=== PATIENT | female | born 1955 | race Two or more races ===

== ENCOUNTER 2020-03-12 12:08 | Outpatient (REF) | payer MEDICARE, MEDICAID, SELFPAY | END 2020-03-12 12:09 | disposition home or self-care (01) | LOC: HO.LAB 12:08 | PROVIDERS: Visit Provider Internal Medicine | DX: Z20.828 Contact with and (suspected) exposure to other viral communicable diseases (principal) | CPT/HCPCS: C9803; U0003 ==

== ENCOUNTER 2020-09-19 07:44 | Outpatient (REF) | payer MEDICARE, SELFPAY ==
--- NOTE | ~2020-09-19 | MM_ITS ---
EXAMINATION: MM SCREENING DIGITAL BREAST TOMOSYNTHESIS, BILATERAL CLINICAL INFORMATION: Screening. Asymptomatic. The lifetime risk of breast cancer based on the Tyrer-Cuzick Model is 10%. COMPARISON: Mammography: 11/01/2018, 10/05/2017, 05/13/2016 TECHNIQUE: Digital breast tomosynthesis is performed in both the craniocaudal and mediolateral oblique views along with computer-aided detection (CAD). Synthesized 2D images are generated from the tomosynthesis. FINDINGS: There are scattered areas of fibroglandular density (ACR BI-RADS breast composition Category b). There are no significant masses, abnormal calcifications, or other abnormalities. Parenchymal pattern is similar to prior studies. No developing density. No significant changes. MM/MM tomosynthesis screening BI IMPRESSION: No mammographic evidence of malignancy. ASSESSMENT: BI-RADS 1: Negative RECOMMENDATION: Routine annual mammography screening. This patient's information was entered into a reminder system with a target due date for their next mammogram.
--- NOTE | ~2020-09-19 | MM_ITS ---
EXAMINATION: BONE DENSITOMETRY CLINICAL INDICATION: Other disorder of bone density and structure, right thigh. COMPARISON: Previous BD dated 06/15/2018 and baseline BD dated 10/19/2006. TECHNIQUE: Using a [employer] DXA System (software version: 13.1) manufactured by [employer], dual-energy x-ray absorptiometry was performed of the lumbar spine and left hip. The images are of good technical quality. Summary results are attached. FINDINGS: AP SPINE L1-L4: Current: BMD 1.066 g/cm2, Z-score 0.1, T-score -1.0, normal, 11.9% increase from previous, 5.4% decrease from baseline (<5% change is not significant). Prior: BMD 0.953 g/cm2. Baseline: BMD 1.127 g/cm2. LEFT FEMUR, NECK: Current: BMD 0.742 g/cm2, Z-score -0.9, T-score -2.1, osteopenia. Prior: BMD 0.776 g/cm2. Baseline: BMD 0.986 g/cm2. LEFT FEMUR, TOTAL: Current: BMD 0.786 g/cm2, Z-score -0.9, T-score -1.8, osteopenia, 1.9% decrease from previous, 23.2% decrease from baseline (<5% change is not significant). Prior: BMD 0.801 g/cm2. Baseline: BMD 1.023 g/cm2. IDENTIFIED RISK FACTORS: Menopause, unilateral oophorectomy. HISTORY OF FRACTURE: None listed. MEDICATIONS: Calcium supplements or multivitamin, vitamin D. MM/XR DEXA axial skeleton IMPRESSION: 1. DIAGNOSIS: Osteopenia based on the lowest T-score value of -2.1 in the femoral neck applying World Health Organization criteria. 2. 10-YEAR FRACTURE RISK PREDICTION, FRAX: Major osteoporotic fracture (clinical spine, forearm, hip or shoulder) 6.2%. Hip fracture 1.0%. 3. Treatment Recommendations: NOF guidelines recommend consideration for treatment in postmenopausal women and men age 50 and older presenting with the following: -A hip or vertebral (clinical or morphometric) fracture. -T-score less than or equal to -2.5 at the femoral neck or spine after appropriate evaluation to exclude secondary causes. -Low bone mass at the hip or spine and a 10-year fracture probability by FRAX of greater than or equal to 3% for hip fracture or greater than or equal to 20% for major osteoporotic fracture based on the [place] adapted WHO algorithm. 4. Other Recommendations: All treatment decisions require clinical judgment and consideration of individual patient factors, including patient preferences, comorbidities, previous drug use, risk factors not captured in the FRAX model (e.g. frailty, falls, vitamin D deficiency, increased bone turnover, interval significant decline in bone density) and possible under or overestimation of fracture risk by FRAX. Additional medical evaluation for secondary cause of low bone mineral density may be appropriate. FUTURE SCAN RECOMMENDATION: People with diagnosed cases of osteoporosis or at high risk for fracture should have regular bone mineral density tests. For patients eligible for Medicare, routine testing is allowed once every 2 years. The testing frequency can be increased to one year for patients who have rapidly progressing disease, those who are receiving or discontinuing medical therapy to restore bone mass, or have additional risk factors.
== END 2020-09-19 07:45 | disposition home or self-care (01) ==
LOC: HO.MAMMO 07:44
PROVIDERS: Visit Provider Internal Medicine
DX: Z12.31 Encounter for screening mammogram for malignant neoplasm of breast (principal); Z13.820 Encounter for screening for osteoporosis; M85.851 Other specified disorders of bone density and structure, right thigh; Z78.0 Asymptomatic menopausal state; Z79.899 Other long term (current) drug therapy; Z98.890 Other specified postprocedural states
CPT/HCPCS: 77063; 77067; 77080

== ENCOUNTER 2021-01-28 09:25 | Outpatient (REF) | payer MEDICARE, SELFPAY ==
--- NOTE | ~2021-01-28 | XR_ITS ---
EXAMINATION: XR HAND-BILATERAL CLINICAL INFORMATION: Polyarthritis. COMPARISON: None TECHNIQUE: 3 views each of both hands. FINDINGS: Right hand: Mild diffuse osteopenia is noted involving all the visualized bones. No definite radiographic evidence of any articular or subarticular erosion present. Soft tissues are unremarkable. The articular surfaces are unremarkable. Left hand: Mild diffuse osteopenia is noted. Similar to the right side, no definite radiographic evidence of any articular or subarticular erosion present. The soft tissues are unremarkable. The articular surfaces are unremarkable. XR/XR hand RT min 3V IMPRESSION: 1. Mild diffuse osteopenia. 2. No radiographic evidence of any articular or subarticular erosion or soft tissue abnormalities.
--- NOTE | ~2021-01-28 | XR_ITS ---
EXAMINATION: XR HAND-BILATERAL CLINICAL INFORMATION: Polyarthritis. COMPARISON: None TECHNIQUE: 3 views each of both hands. FINDINGS: Right hand: Mild diffuse osteopenia is noted involving all the visualized bones. No definite radiographic evidence of any articular or subarticular erosion present. Soft tissues are unremarkable. The articular surfaces are unremarkable. Left hand: Mild diffuse osteopenia is noted. Similar to the right side, no definite radiographic evidence of any articular or subarticular erosion present. The soft tissues are unremarkable. The articular surfaces are unremarkable. XR/XR hand LT min 3V IMPRESSION: 1. Mild diffuse osteopenia. 2. No radiographic evidence of any articular or subarticular erosion or soft tissue abnormalities.
== END 2021-01-28 09:26 | disposition home or self-care (01) ==
LOC: HO.XRAY 09:25
PROVIDERS: PCP Internal Medicine; Visit Provider Internal Medicine
DX: M13.0 Polyarthritis, unspecified (principal)
CPT/HCPCS: 73130

== ENCOUNTER 2021-02-22 15:41 | Outpatient (REF) | payer OTHER, SELFPAY ==
--- NOTE | ~2021-02-22 | US_ITS ---
EXAMINATION: US THYROID CLINICAL INFORMATION: Nontoxic single thyroid nodule. COMPARISON: Ultrasound soft tissue head/neck thyroid dated 12/06/2019. TECHNIQUE: Linear transducer grayscale and color Doppler examination with attention to the region of the thyroid. FINDINGS: SIZE: Measurements of the thyroid lobes and nodules are given in sagittal, anteroposterior and transverse dimensions respectively. Right Thyroid Lobe: 3.9 x 2.3 x 1.6 cm, volume 7.5 mL. Previously 4.6 x 2.3 x 2.4 cm, volume 12.8 mL. Parenchyma: The gland echotexture is heterogeneous. Thyroid vascularity is increased. Left Thyroid Lobe: 4.5 x 2.3 x 1.9 cm, volume 10.3 mL. Previously 5.7 x 2.4 x 3.2 cm, volume 23.3 mL. Parenchyma: The gland echotexture is heterogeneous. Thyroid vascularity is increased. Isthmus: 0.1 cm in maximum AP dimension. Previously 0.1 cm. Estimated total number of nodules greater than or equal to 1 cm: 0. Contact Finger Assembler nodules are described as follows: 1. Location: Right mid. Size: 0.8 x 0.49 x 0.73 cm, volume 0.15 mL. Previously: 0.8 x 0.6 x 0.6 cm, volume 0.15 mL. Nodule characteristics: Composition: Solid (2). Echogenicity: Hyperechoic (1). Shape: Not taller than wide (0). Margins: Smooth (0). Echogenic Foci: None (0). ACR TI-RADS total points: 3 ACR TI-RADS category: 3 Significant change in size (>/= 20% in 2 dimensions and minimal increase of 2 mm or 50% or greater increase in volume): No Change in features: No Change in ACR TI-RADS risk category: No 2. Location: Right inferior. Size: 0.47 x 0.47 x 0.43 cm, volume 0.05 mL. Previously: 0.8 x 0.7 x 0.7 cm, volume 0.21 mL. Nodule characteristics: Composition: Solid (2). Echogenicity: Hypoechoic (2). Shape: Not taller than wide (0). Margins: Smooth (0). Echogenic Foci: None (0). ACR TI-RADS total points: 4 ACR TI-RADS category: 4 Significant change in size (>/= 20% in 2 dimensions and minimal increase of 2 mm or 50% or greater increase in volume): Yes, decreased Change in features: No Change in ACR TI-RADS risk category: No NODES: No lymphadenopathy is seen in the tissue surrounding the thyroid gland. US/US thyroid IMPRESSION: Upper normal-size very heterogeneous slightly hypervascular thyroid gland. One right nodule appears slightly decreased in size. There is no change in the other right nodule. ACR TI-RADS RECOMMENDATION REFERENCE: Ultrasound-guided fine-needle aspiration, followup ultrasound, no further follow up. * TR1 (0 point) and TR 2 (2 points): No FNA or follow up * TR3 (3 points): FNA if more than or equal to 2.5 cm in maximum dimension, followup ultrasound in 1, 3 and 5 years if 1.5 to 2.4 cm in maximum dimension. * TR4 (4-6 points): FNA if more than or equal to 1.5 cm in maximum dimension, followup ultrasound in 1, 2, 3 and 5 years if 1 to 1.4 cm in maximum dimension. * TR5 (more than or equal to 7 points): FNA if more than or equal to 1 cm in maximum dimension, followup ultrasound every year for 5 years if 0.5 to 0.9 cm in maximum dimension. * TR3, TR4 or TR5 nodules that are below the size threshold for follow up receive no follow up.
== END 2021-02-22 15:42 | disposition home or self-care (01) ==
LOC: HO.US 15:41
PROVIDERS: PCP Internal Medicine; Visit Provider Internal Medicine
DX: E04.1 Nontoxic single thyroid nodule (principal)
CPT/HCPCS: 76536

== ENCOUNTER 2021-10-18 07:02 | Emergency (ER) | payer OTHER, SELFPAY ==
--- NOTE | ~2021-10-18 | XR_ITS ---
EXAMINATION: XR ELBOW, LEFT CLINICAL INFORMATION: Post reduction COMPARISON: Previous x-ray from earlier the same day TECHNIQUE: Two views of the left elbow. FINDINGS: There is posterior dislocation of the radial head with respect to the capitellum. There is a displaced fracture of the proximal ulnar shaft and coronoid process. Alignment appears unchanged from x-ray from earlier the same day. Humeral ulnar alignment is normal appearing. There is an elbow joint effusion. There is soft tissue swelling adjacent to the proximal ulnar shaft fracture. XR/XR elbow LT 2V IMPRESSION: Posterior dislocation of the radial head with respect to the capitellum and displaced proximal ulnar shaft and coronoid process fractures. Alignment appears unchanged from earlier exam.
--- NOTE | ~2021-10-18 | XR_ITS ---
EXAMINATION: XR WRIST, LEFT CLINICAL INFORMATION: Pain status-post fall. COMPARISON: Radiographs dated 01/28/2021. TECHNIQUE: PA view of the left wrist. FINDINGS: The bones and soft tissues are normal. No fracture. Alignment is anatomic with normal joint spaces. No erosions or abnormal soft tissue calcifications. XR/XR wrist LT min 3V IMPRESSION: Normal left wrist.
--- NOTE | ~2021-10-18 | XR_ITS ---
EXAMINATION: XR forearm LT 2V, XR elbow LT min 3V CLINICAL INFORMATION: Reason for Exam pain s/p fall COMPARISON: None available at the time of this dictation. TECHNIQUE: Frontal and lateral view radius, ulna, elbow, total of 4 views were obtained. FINDINGS: Mildly displaced angulated fracture of the proximal ulna, O the fracture site about 0.5 cm, angulation of the fracture site approximately 30 degrees. There is dorsal dislocation of the radial head. XR/XR forearm LT 2V IMPRESSION: Fracture dislocation of the elbow, angulated mildly displaced fracture of the proximal ulnar diaphysis, posteriorly dislocated radial head.
--- NOTE | ~2021-10-18 | XR_ITS ---
EXAMINATION: XR forearm LT 2V, XR elbow LT min 3V CLINICAL INFORMATION: Reason for Exam pain s/p fall COMPARISON: None available at the time of this dictation. TECHNIQUE: Frontal and lateral view radius, ulna, elbow, total of 4 views were obtained. FINDINGS: Mildly displaced angulated fracture of the proximal ulna, O the fracture site about 0.5 cm, angulation of the fracture site approximately 30 degrees. There is dorsal dislocation of the radial head. XR/XR elbow LT min 3V IMPRESSION: Fracture dislocation of the elbow, angulated mildly displaced fracture of the proximal ulnar diaphysis, posteriorly dislocated radial head.
[2021-10-18 07:33] VITALS: BP 132/70; PULSE 78; RESP 18; TEMP 36.7; O2SAT 98; BMI 32.1
--- NOTE | 2021-10-18 09:11 | ED.FALL ---
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 Patient tripped and fell landing on her right side trying to protect her fall with her left arm fell on outstretched left upper extremities causing severe pain in the left elbow, no head injury or head trauma, no LOC. patient also is complaining of right knee pain. Related Data Previous Rx's Medication Instructions Recorded ibuprofen 800 mg tablet 800 mg PO Q8H PRN pain #20 tabs 10/18/21 Allergies Allergy/AdvReac Type Severity Reaction Status Date / Time No Known Allergies Allergy Unverified 12/22/19 15:31 none Allergy Unknown Uncoded 04/21/19 00:00 Review of Systems Review of Systems: All other systems are reviewed and are negative Constitutional: Reports as per HPI and Reports no additional constitutional complaints Eyes: Reports as per HPI and Reports no additional eye complaints Reports system reviewed and no additional complaints, except as documented Cardiovascular: Reports as per HPI and Reports no additional cardiovascular complaints Respiratory: Reports as per HPI and Reports no additional respiratory complaints Gastrointestinal: Reports as per HPI and Reports no additional gastrointestinal complaints Genitourinary: Reports no additional female genitourinary complaints Musculoskeletal: Reports no additional musculoskeletal complaints Skin/Breast: Reports system reviewed and no additional complaints, except as docu Psychiatric: Reports no additional psychiatric complaints Endocrine: Reports no additional endocrine complaints Hematologic/Lymphatic: Reports no additional hematologic/lymphatic complaints Allergic/Immunologic: Reports no additional allergic/immunologic complaints Reports system reviewed and no additional complaints, except as documented and Reports Abnormal speech present [facility] Social History Social History Advance Directives: No Advance Directives Information Provided: Yes Physical Exam Vital Signs: Vital Signs: Last Vital Signs Temp 98.1 F 10/18/21 07:33 Pulse 78 10/18/21 07:33 Resp 18 10/18/21 07:33 BP 132/70 10/18/21 07:33 Pulse Ox 98 10/18/21 07:33 O2 Del Method 10/18/21 07:33 BMI result Body Mass Index 32.1 Vital signs have been reviewed as appeared to be correct. Blood pressure normal. Heart rate normal. Respiration rate normal. Temperature normal. Oxygen saturation normal. Appearance: Alert. Oriented X3. No acute distress. Head: Normal external exam. Normocephalic. Atraumatic. No Chan signs noted. No raccoon eyes noted Eyes: PERRLA. EOMI. Conjunctiva and sclera normal. Eyelids normal. ENT: TM's Normal. Pharynx normal. Uvula midline. Moist mucous membranes. No trismus noted. No drooling noted. No muffled voice noted. Neck: Normal inspection. Neck supple. FROM. No adenopathy. Thyroid Normal. No meningeal signs. No neck mass noted. CVS: Normal heart rate and rhythm. Heart sound normal. No murmurs noted. Pulses normal throughout. Respiratory: No respiratory distress. Painless inspiration. Breath sounds normal. No wheezes/rales/rhonchi noted. Chest nontender. No accessory muscle usage noted or decreased air movement noted. Abdomen: Soft and nontender. Bowel sounds normal in all 4 quadrants. No distention noted. No organomegaly noted. No visible injury noted. Back: No CVA tenderness. Full range of motion noted. Skin: Skin warm and dry. Normal skin color. Normal skin turgor. No rashes/lesions/lacerations noted. Extremities: Right elbow pain with mild swelling and deformity, neurovascular proximal and distal to the injury is intact. Neuro: Oriented X 3. Cranial nerve exam: II-XII are grossly intact No motor deficit. No sensory deficit. Reflexes normal. Course Course Course Narrative: Left on the fracture. Posterior splint with sling and discharged with follow-up with ortho. Patient will be contacted by Dr. Brush's office to arrange for soon open reduction and internal fixation. Procedures Orthopedic Joint Reduction Joint #1: Time Out Performed: Yes Side: left Joint Reduction Location: elbow Analgesia: hematoma block Local Anesthesia: lidocaine 2% Amount of anesthesic used (mL): 5 Shoulder Technique Used (if applicable): traction/counter-traction Post-reduction neuro exam: no change Post-reduction vascular: no change Post Reduction X-Ray Obtained: Yes Post Reduction X-Ray Results: not reduced Splint Applied: Yes Patient Tolerated Procedure: well MDM - Fall Imaging Data Left elbow x-ray: Attestation: I personally reviewed and interpreted this imaging study as follows: Radiologist's impression: Fracture dislocation of the elbow, angulated mildly displaced fracture of the proximal ulnar diaphysis, posteriorly dislocated radial head. Discharge Plan Discharge Clinical Impression: Elbow fracture, left Patient Disposition: Home, Self-Care Instructions: Elbow Fracture (ED) Prescriptions: New ibuprofen 800 mg tablet 800 mg PO Q8H PRN (Reason: pain) Qty: 20 0RF Referrals: Warner Brush MD [Physician] - Interventions: ED Discharge Assessment Last Done: 10/18/21 10:39 Discharge Date/Time: 10/18/21 12:26
[2021-10-18] MEDS: Lidocaine HCl 1 % MPF 5 ML VIAL SUBCUT (11:41)
== END 2021-10-18 12:26 | disposition home or self-care (01) ==
PROVIDERS: Emergency Provider Emergency Medicine
DX: S52.122A Displaced fracture of head of left radius, initial encounter for closed fracture (principal); S53.005A Unspecified dislocation of left radial head, initial encounter; M25.561 Pain in right knee; W01.0XXA Fall on same level from slipping, tripping and stumbling without subsequent striking against object, initial encounter; Y93.9 Activity, unspecified; Y92.9 Unspecified place or not applicable; Y99.9 Unspecified external cause status
CPT/HCPCS: 24620; 73070; 73080; 73090; 73110; 99282; 99284

== ENCOUNTER → 2021-10-21 13:25 | Outpatient (BNVA) | payer OTHER, SELFPAY | PROVIDERS: Visit Provider Physician Assistant | DX: S52.002A Unspecified fracture of upper end of left ulna, initial encounter for closed fracture (principal); S53.005A Unspecified dislocation of left radial head, initial encounter | CPT/HCPCS: 99202; J1100; J2405; J3010 ==

== ENCOUNTER 2021-10-22 06:00 | Day surgery (SDC) | payer OTHER, SELFPAY ==
[2021-10-21 14:09] VITALS: BMI 32.1
--- NOTE | 2021-10-21 14:10 | HO.ANESPROP2 ---
HPI - Anesthesia Eval Consult details Narrative: 66yo F for Left Elbow FX [place] Ulna ORIF PMFSH Active Problems Active Problems: All Active Problems (Updated 10/21/21 @ 13:41 by Jelly Haas) Fracture of proximal end of left ulna (Acute) Dislocation of left radial head (Acute) Past Medical History Medical History (Updated 10/22/21 @ 06:37 by Lisset Peng RN) High cholesterol Thyroid disease Surgical History Surgical History (Updated 10/22/21 @ 06:37 by Lisset Peng RN) Total knee replacement status Social History Social History (Updated 10/21/21 @ 13:32 by JANES Oseguera) Patient Tobacco Use Status: Never used Tobacco Are you DNR?: No Advance Directives: No Advance Directives Information Provided: Yes Nutrition Risks: No Nutritional Risk Current occupational status: unemployed and 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 Allergies Allergy/AdvReac Type Severity Reaction Status Date / Time No Known Allergies Allergy Verified 10/22/21 06:36 Home Medications Medication Instructions Recorded Confirmed Last Taken Type alendronate 70 mg tablet 70 mg PO QWEEK 10/21/21 Unknown History atorvastatin 20 mg tablet 20 mg PO DAILY 10/21/21 Unknown History calcium citrate 315 mg-vitamin D3 2 tab PO BID 10/21/21 Unknown History 5 mcg (200 unit) tablet levothyroxine 137 mcg tablet 137 mcg PO DAILY 10/21/21 Unknown History nitrofurantoin 1 cap PO BID 10/21/21 Unknown History monohydrate/macrocrystals 100 mg capsule Exam Exam Date and Time: October 21, 2021 1410 Height,Weight and Vital Signs: Height 5 ft 1 in Weight 77.111 kg Assessment and Plan Assessment Anesthesia Assessment: Chart Reviewed
[2021-10-22] VITALS (11 sets, daily range): BP systolic 112–162; BP diastolic 62–85; PULSE 78–102; RESP 16–18; TEMP 36.1–36.7; O2SAT 92–945
--- NOTE | ~2021-10-22 | FL_ITS ---
EXAMINATION: XR FLUOROSCOPY WITH IMAGES CLINICAL INFORMATION: Reduction fracture left proximal ulnar with radial head dislocation. COMPARISON: Radiographs left elbow 10/18/2021, left wrist 10/18/2021. TECHNIQUE: Fluoroscopy performed by Dr. Evelyn Rodriguez. Fluoroscopy time: 1 minute. Cumulative Dose: 2.48 mGy. DAP: 0.15 Gy-cm2. Images: 16. FINDINGS: Proximal ulnar fracture is reduced with dorsal plate and multiple screws. Hardware is intact. Fracture fragments are in near-anatomic alignment. Radial dislocation there is reduced as well. There is normal alignment. No dislocation. There are overlying skin anand. FL/FL guidance in OR IMPRESSION: Status post reduction internal fixation left elbow fracture/dislocation.
[2021-10-22] MEDS: Lactated Ringers 1,000 ML 100 ML IVCONT (06:20)
--- NOTE | 2021-10-22 07:40 | MHC.SHP ---
Pre-Procedural Eval Section A Date of Service: 10/22/21 The patient is an INPATIENT: No Changes since office visit: No Cold of Flu in the past 2 weeks, No New Medical Problems, No Changes in Medication and No Patient answered all questions The History & Physical has been completed within 30 days and I have reviewed it.: Yes Section B Chief Complaint: Monteggia's fracture of left ulna, initial encount Allergies: Allergies Allergy/AdvReac Type Severity Reaction Status Date / Time No Known Allergies Allergy Verified 10/22/21 06:36 Plan I have reviewed the history and physical and performed a pertinent physical examination on my patient. No changes have occurred unless specified.
--- NOTE | 2021-10-22 07:57 | HO.ANESPROP2 ---
[facility] Active Problems Active Problems: All Active Problems (Updated 10/22/21 @ 06:37 by Lisset Peng RN) Dislocation of left radial head (Acute) Fracture of proximal end of left ulna (Acute) Past Medical History Medical History (Updated 10/22/21 @ 06:37 by Lisset Peng RN) High cholesterol Thyroid disease Family History Family history of problems with anesthesia: No Surgical History Surgical History (Updated 10/22/21 @ 06:37 by Lisset Peng RN) Total knee replacement status History of Problems with Anesthesia: No Social History Social History (Updated 10/21/21 @ 13:32 by Kimberlee Chance [facility] Patient Tobacco Use Status: Never used Tobacco Are you DNR?: No Advance Directives: No Advance Directives Information Provided: Yes Nutrition Risks: No Nutritional Risk Current occupational status: unemployed and 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 Allergies Allergy/AdvReac Type Severity Reaction Status Date / Time No Known Allergies Allergy Verified 10/22/21 06:36 Active Medications: Current Medications Lactated Ringer's (Lr) 1,000 mls @ 100 mls/hr IVCONT .Q10H DARIA Last Admin: 10/22/21 06:20 Dose: 100 mls/hr Home Medications Medication Instructions Recorded Confirmed Last Taken Type alendronate 70 mg tablet 70 mg PO QWEEK 10/21/21 Unknown History atorvastatin 20 mg tablet 20 mg PO DAILY 10/21/21 Unknown History calcium citrate 315 mg-vitamin D3 2 tab PO BID 10/21/21 Unknown History 5 mcg (200 unit) tablet levothyroxine 137 mcg tablet 137 mcg PO DAILY 10/21/21 Unknown History nitrofurantoin 1 cap PO BID 10/21/21 Unknown History monohydrate/macrocrystals 100 mg capsule Exam Exam Date and Time: October 22, 2021 0757 Height,Weight and Vital Signs: Height 5 ft 1 in Weight 77.111 kg Last Vital Signs Temp 98.1 F 10/22/21 06:27 Pulse 102 H 10/22/21 06:27 Resp 18 10/22/21 06:27 BP 162/85 H 10/22/21 06:27 Pulse Ox 97 10/22/21 06:27 O2 Del Method 10/22/21 06:27 Airway Mallampati Class: II TM Dist: >3cm Neck ROM: Full Assessment and Plan Assessment Anesthesia Assessment: Anesthesia Plan Discussed and Chart Reviewed Final Anesthetic Review Family History of Problems with Anesthesia: No History of Problems with Anesthesia: No NPO: Yes ASA Class: II Final Preanesthetic Review: No Changes in Pt Med Stat, Meds/Allgs Chart Reviewed, Consent Obtained/Reviewed and Anes Risks/Benef Reviewed Patient Risk: Intermediate Procedure Risk: Intermediate Anesthetic Plan Anesthetic Plan: GA and Regional Block Disposition: Standard PACU
--- NOTE | 2021-10-22 12:04 | P.HPSUR_ITS ---
Pre-Procedural Eval Section A Date of Service: 10/22/21 The patient is an INPATIENT: No Changes since office visit: No Cold of Flu in the past 2 weeks, No New Medical Problems, No Changes in Medication and No Patient answered all questions The History & Physical has been completed within 30 days and I have reviewed it.: Yes Section B Chief Complaint: Monteggia's fracture of left ulna, initial encount Allergies: Allergies Allergy/AdvReac Type Severity Reaction Status Date / Time No Known Allergies Allergy Verified 10/22/21 06:36 Plan I have reviewed the history and physical and performed a pertinent physical examination on my patient. No changes have occurred unless specified. The risks and benefits of operative treatment were discussed with the patient and the patient wishes to proceed with surgery. These risks include, but are not limited to risk of damage to blood vessels, nerves, tendons, infection, r ecurrence, incomplete relief of preoperative symptoms, persistent pain, possible need for further surgery and the risks associated with regional blocks and anesthesia. The plan is to take the patient to the operating room today for the following procedures: 1. Left Monteggia elbow fracture dislocation open reduction internal fixation 2. [ ] All of the preoperative paperwork including the consent was filled out today. All the patient's questions were answered. The patient understands that they will be contacted by our district gauger soon to schedule this procedure
--- NOTE | 2021-10-22 12:06 | W.PM.OPN ---
Operative Note Operative Note Date of Service: 10/22/21 Narrative: Operative Note Narrative: Preop diagnosis: Left posterior Monteggia elbow fracture dislocation Postop diagnosis: Same Procedure: 1. Left monteggia elbow fracture dislocation open reduction internal fixation of the ulna and reduction of the radial head, and repair of lateral collateral ligament Surgeon: Evelyn Rodriguez MD Anesthesia: General Anesthesia [plus regional block] Findings: After fixation of the ulna and reduction of the elbow the elbow was found to be unstable at about 60 degrees from full extension. After repair of the lateral collateral ligament stability was improved but the elbow was still noted to be unstable when we reached about 30-40 degrees from full extension. Implants: Neftali 6 hole proximal ulna plate with 4 nonlocking screws and 4 locking screws Tourniquet time: 130 minutes EBL: 10 ml Specimen: None Drains: None Complications: None Disposition: Brought to the recovery room in stable condition Plan: Follow-up in 10-14 days for wound check, suture removal and pre clinic radiographs Referral to elbow specialist for persistent instability following operative management Indications: The patient is a 58 year old woman with a left posterior Monteggia elbow fracture dislocation . The risks and benefits of operative treatment, including but not limited to risk of damage to blood vessels, nerves, tendons, infection, recurrence, persistent pain or numbness, incomplete resolution of preoperative symptoms, or need for further surgery were discussed with the patient and they wished to proceed with surgery. Procedure: Once consent was obtained patient was brought back to the operating suite and placed in the operating table in a supine position. A regional block was performed by the anesthesia team. Perioperative antibiotics and anesthesia was administered by the anesthesia team. A tourniquet was applied to the proximal aspect of the left upper extremity and the limb was prepped and draped in a standard surgical fashion. The limb was elevated exsanguinated with Esmarch bandage and the tourniquet inflated to 250 mm of mercury for a total tourniquet time of 130 minutes. A posterior approach to the left elbow was made the along the posterior aspect of the olecranon extending distally along the ulnar shaft. Incision was made through the skin the subcutaneous tissues using a 15. Blade. I then carefully dissected down onto the shaft of the proximal ulna and about the olecranon . I did longitudinally split the triceps tendon fibers to facilitate placement of the plate. Some hematoma was removed from the fracture site and an open reduction was performed of the ulna shaft fracture. I then placed a 6 hole Knickerbocker olecranon plate on the proximal ulna and held our fixation and the plate in position using 3 K-wires. Once satisfied with our reduction and plate placement I then placed 4 cortical screws and 4 locking screws after drilling with the appropriate drill bit, measuring with a depth gauge and placing the appropriate length and type of 3.5 mm screw. The near cortex of the long cortical screw securing the butterfly fragment was over reamed with a 3.5 mm drill bit to create a lag screw. All implants appeared to be satisfactorily positioned and ulna fracture appears to have been brought out to length. There is a butterfly fracture fragment, and this appears to be in satisfactory position. When testing the elbow through range of motion however, the elbow was unstable posterior laterally as the elbow was brought from full flexion to perhaps 60 degrees from full extension. At this point I extended our approach over the lateral aspect of the elbow. I made a Veronica approach, dissecting between the anconeus muscle belly and the muscle bellies of the extensor tendons. This took me directly into the radiocapitellar joint. The capsuloligamentous structures about the radial capitellar joint were disrupted. The lateral collateral ligament appears to have been torn off of its origin in the lateral epicondyle. At this point the wound was copiously irrigated with normal saline. I repaired the lateral collateral ligament using some 2-0 Ethibond suture. After our repair I again assessed the elbow for stability. The repair did improve stability, however the elbow is still unstable at approximately 30 degrees from full extension. At this point the tourniquet was deflated and hemostasis obtained with a brief period of local pressure and bipolar electrocautery. The wound was copiously irrigated with normal saline. Soft tissue was reapproximated over the plate and the subcutaneous layer was closed with 2-0 Vicryl suture, and the skin edges were reapproximated with staple closure. The wound was infiltrated with some 1% lidocaine with epinephrine for postop pain control and a sterile dressing and posterior splint with the elbow at 90 degrees of flexion was applied. The patient appears to have tolerated the procedure well and with no complications. All digits were well vascularized conclusion of the case.
== END 2021-10-22 14:32 | disposition home or self-care (01) ==
PROVIDERS: Visit Provider Orthopaedic Surgery
PROC: (CPT 24635; principal; 2021-10-22 07:30)
DX: S52.272A Monteggia's fracture of left ulna, initial encounter for closed fracture (principal); W01.0XXA Fall on same level from slipping, tripping and stumbling without subsequent striking against object, initial encounter; Y93.01 Activity, walking, marching and hiking; Y92.9 Unspecified place or not applicable; Y99.8 Other external cause status; E07.9 Disorder of thyroid, unspecified; E78.5 Hyperlipidemia, unspecified; Z79.899 Other long term (current) drug therapy
CPT/HCPCS: 24635; C1713; J0171; J0690; J1100; J2250; J2405; J2795; J3010

== ENCOUNTER 2021-11-05 13:10 | Outpatient (REF) | payer OTHER, SELFPAY ==
--- NOTE | ~2021-11-05 | XR_ITS ---
EXAMINATION: XR ELBOW, LEFT CLINICAL INFORMATION: Elbow pain. COMPARISON: Elbow radiographs 10/18/2021. TECHNIQUE: AP, lateral, and oblique views of the left elbow. FINDINGS: There has been open reduction and internal fixation of complex proximal ulnar fracture with a plate and screw device in place. Fracture fragment alignment is significantly improved when compared to the post-reduction radiographs on 10/18/2021 which still showed significant angulation. The radial head now appears in more normal position and not dislocated with respect to the capitellum. XR/XR elbow LT min 3V IMPRESSION: Postoperative findings status post open reduction and internal fixation.
== END 2021-11-05 13:11 | disposition home or self-care (01) ==
LOC: HO.HOSX 13:10
PROVIDERS: Visit Provider Physician Assistant
DX: M25.522 Pain in left elbow (principal)
CPT/HCPCS: 73080

== ENCOUNTER 2022-01-15 11:00 | Outpatient (RCR) | payer OTHER, SELFPAY | END 2022-02-13 11:03 | disposition home or self-care (01) | LOC: HO.OT 11:00 | PROVIDERS: PCP Internal Medicine; Visit Provider Nurse Practitioner Family | DX: M25.522 Pain in left elbow (principal) | CPT/HCPCS: 97110; 97140; 97166 ==

== ENCOUNTER 2022-09-23 09:01 | Outpatient (REF) | payer OTHER, SELFPAY ==
--- NOTE | ~2022-09-23 | US_ITS ---
EXAMINATION: US THYROID CLINICAL INFORMATION: Right thyroid nodule. COMPARISON: Ultrasound soft tissue head/neck thyroid dated 02/22/2021 TECHNIQUE: Linear transducer grayscale and color Doppler examination with attention to the region of the thyroid. FINDINGS: SIZE: Measurements of the thyroid lobes and nodules are given in sagittal, anteroposterior and transverse dimensions respectively. Right Thyroid Lobe: 4.5 x 1.7 x 1.4 cm, volume 5.6 mL. Previously 3.9 x 2.3 x 1.6 cm, volume 7.5 mL. Parenchyma: The gland echotexture is heterogeneous. Thyroid vascularity is increased. Left Thyroid Lobe: 5.0 x 2.2 x 2.5 cm, volume 14.4 mL. Previously 4.5 x 2.3 x 1.9 cm, volume 10.3 mL. Parenchyma: The gland echotexture is heterogeneous. Thyroid vascularity is increased. Isthmus: 0.3 cm in maximum AP dimension. Previously 0.1 cm. Estimated total number of nodules greater than or equal to 1 cm: 0. Reception Interviewer nodules are described as follows: 1. Location: Right mid. Size: 0.8 x 0.6 x 0.7 cm, volume 0.2 mL. Previously: 0.8 x 0.5 x 0.7 cm, volume 0.2 mL. Nodule characteristics: Composition: Solid (2). Echogenicity: Isoechoic (1). Shape: Not taller than wide (0). Margins: Smooth (0). Echogenic Foci: None (0). ACR TI-RADS total points: 3 Previous: 3 ACR TI-RADS category: 3 Previous: 3 Significant change in size (>/= 20% in 2 dimensions and minimal increase of 2 mm or 50% or greater increase in volume): No Change in features: No Change in ACR TI-RADS risk category: No 2. Location: Right inferior. Size: 0.8 x 0.7 x 0.7 cm, volume 0.2 mL. Previously: 0.5 x 0.5 x 0.4 cm, volume 0.2 mL. Nodule characteristics: Composition: Solid (2). Echogenicity: Isoechoic (1). Shape: Not taller than wide (0). Margins: Smooth (0). Echogenic Foci: Peripheral calcifications (2). ACR TI-RADS total points: 5 Previous: 4 ACR TI-RADS category: 4 Previous: 4 Significant change in size (>/= 20% in 2 dimensions and minimal increase of 2 mm or 50% or greater increase in volume): No Change in features: Yes, new peripheral calcification Change in ACR TI-RADS risk category: No NODES: No lymphadenopathy is seen in the tissue surrounding the thyroid gland. US/US thyroid IMPRESSION: Subcentimeter TR 3 and TR 4 thyroid nodules as detailed above which do not meet criteria for follow-up given size. Heterogeneous and hypervascular thyroid which can be seen in the setting of thyroiditis. ACR TI-RADS RECOMMENDATION REFERENCE: Ultrasound-guided fine-needle aspiration, followup ultrasound, no further follow up. * TR1 (0 point) and TR2 (2 points): No FNA or follow up * TR3 (3 points): FNA if more than or equal to 2.5 cm in maximum dimension, followup ultrasound in 1, 3 and 5 years if 1.5 to 2.4 cm in maximum dimension. * TR4 (4-6 points): FNA if more than or equal to 1.5 cm in maximum dimension, followup ultrasound in 1, 2, 3 and 5 years if 1 to 1.4 cm in maximum dimension. * TR5 (more than or equal to 7 points): FNA if more than or equal to 1 cm in maximum dimension, followup ultrasound every year for 5 years if 0.5 to 0.9 cm in maximum dimension. * TR3, TR4 or TR5 nodules that are below the size threshold for follow up receive no follow up.
--- NOTE | ~2022-09-23 | MM_ITS ---
EXAMINATION: BONE DENSITOMETRY CLINICAL INDICATION: Other specified disorders of bone density and structure, unspecified site. COMPARISON: Previous BD dated 09/19/2020 and baseline BD dated 10/19/2006. TECHNIQUE: Using a Infoflow DXA System (software version: 13.1) manufactured by [employer], dual-energy x-ray absorptiometry was performed of the lumbar spine and left hip. The images are of good technical quality. Summary results are attached. FINDINGS: AP SPINE L1-L4: Current: BMD 1.055 g/cm2, Z-score 0.3, T-score -1.0, normal, 1.0% decrease from previous, 6.1% decrease from baseline (<5% change is not significant). Prior: BMD 1.066 g/cm2. Baseline: BMD 1.123 g/cm2. LEFT FEMUR, NECK: Current: BMD 0.627 g/cm2, Z-score -1.5, T-score -3.0, osteoporosis. Prior: BMD 0.742 g/cm2. Baseline: BMD 0.986 g/cm2. LEFT FEMUR, TOTAL: Current: BMD 0.751 g/cm2, Z-score -0.9, T-score -2.0, osteopenia, 4.5% decrease from previous, 26.6% decrease from baseline (<5% change is not significant). Prior: BMD 0.786 g/cm2. Baseline: BMD 1.023 g/cm2. IDENTIFIED RISK FACTORS: Early menopause, secondary osteoporosis, rheumatoid arthritis, left oophorectomy. HISTORY OF FRACTURE: Other. MEDICATIONS: Calcium supplements or multivitamin, vitamin D. MM/XR DEXA axial skeleton IMPRESSION: 1. DIAGNOSIS: Osteoporosis based on the lowest T-score value of -3.0 in the femoral neck applying World Health Organization criteria. 2. 10-YEAR FRACTURE RISK PREDICTION, FRAX: According to the guidelines, FRAX calculation should only be performed on patients in the osteopenia bone density category. Therefore, FRAX was not performed on this patient. 3. Treatment Recommendations: NOF guidelines recommend consideration for treatment in postmenopausal women and men age 50 and older presenting with the following: -A hip or vertebral (clinical or morphometric) fracture. -T-score less than or equal to -2.5 at the femoral neck or spine after appropriate evaluation to exclude secondary causes. -Low bone mass at the hip or spine and a 10-year fracture probability by FRAX of greater than or equal to 3% for hip fracture or greater than or equal to 20% for major osteoporotic fracture based on the [place] adapted WHO algorithm. 4. Other Recommendations: All treatment decisions require clinical judgment and consideration of individual patient factors, including patient preferences, comorbidities, previous drug use, risk factors not captured in the FRAX model (e.g. frailty, falls, vitamin D deficiency, increased bone turnover, interval significant decline in bone density) and possible under or overestimation of fracture risk by FRAX. Additional medical evaluation for secondary cause of low bone mineral density may be appropriate. FUTURE SCAN RECOMMENDATION: People with diagnosed cases of osteoporosis or at high risk for fracture should have regular bone mineral density tests. For patients eligible for Medicare, routine testing is allowed once every 2 years. The testing frequency can be increased to one year for patients who have rapidly progressing disease, those who are receiving or discontinuing medical therapy to restore bone mass, or have additional risk factors.
--- NOTE | ~2022-09-23 | MM_ITS ---
EXAMINATION: MM SCREENING DIGITAL BREAST TOMOSYNTHESIS, BILATERAL CLINICAL INFORMATION: Screening. Asymptomatic. The lifetime risk of breast cancer based on the Tyrer-Cuzick Model is 0.4%. COMPARISON: Mammography: September 19, 2020 and studies dating back to February 09, 2015 TECHNIQUE: Digital breast tomosynthesis is performed in both the craniocaudal and mediolateral oblique views along with computer-aided detection (CAD). Synthesized 2D images are generated from the tomosynthesis. FINDINGS: There are scattered areas of fibroglandular density (ACR BI-RADS breast composition Category b). There are no significant masses, abnormal calcifications, or other abnormalities. MM/MM tomosynthesis screening BI IMPRESSION: No significant changes from prior exam. ASSESSMENT: BI-RADS 1: Negative RECOMMENDATION: Routine annual mammography screening. This patient's information was entered into a reminder system with a target due date for their next mammogram.
== END 2022-09-23 09:02 | disposition home or self-care (01) ==
LOC: HO.MAMMO 09:01
PROVIDERS: PCP Registered Nurse; Visit Provider Registered Nurse
DX: Z12.31 Encounter for screening mammogram for malignant neoplasm of breast (principal); Z13.820 Encounter for screening for osteoporosis; Z78.0 Asymptomatic menopausal state; E04.1 Nontoxic single thyroid nodule
CPT/HCPCS: 76536; 77063; 77067; 77080

== ENCOUNTER → 2023-01-27 11:01 | Outpatient (BNVA) | payer OTHER, SELFPAY | PROVIDERS: PCP Registered Nurse; Visit Provider Physician Assistant ==

== ENCOUNTER 2023-07-13 08:41 | Day surgery (SDC) | payer OTHER, SELFPAY ==
[2023-07-09 14:42] VITALS: BMI 29.2
--- NOTE | 2023-07-10 09:49 | HO.ANESPROP2 ---
Documented by User: Louann Cesar NP 07/10/23 09:49 HPI - Anesthesia Eval Consult details Narrative: 67yo F for Colonoscopy PMFSH Active Problems Active Problems: All Active Problems History of adenomatous polyp of colon (Acute) Encounter for screening colonoscopy (Acute) Fracture of proximal end of left ulna (Acute) Dislocation of left radial head (Acute) Past Medical History Medical History (Updated 01/27/23 @ 11:18 by Mari Unger PA-C) Thyroid disease High cholesterol Family History Family history of problems with anesthesia: No Surgical History Surgical History (Updated 07/09/23 @ 14:47 by Dolores Wilkins RN) Hx of colonoscopy Total knee replacement status History of Problems with Anesthesia: No Social History Social History (Updated 01/27/23 @ 11:21 by Mari Unger PA-C) Household Members Other:: 5 kids- single Patient Tobacco Use Status: Never used Tobacco Advance Directives: No Advance Directives Information Provided: Yes Current occupational status: unemployed and 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 Allergies Allergy/AdvReac Type Severity Reaction Status Date / Time No Known Allergies Allergy Verified 01/27/23 11:06 Home Medications ?Medication ?Instructions ?Recorded ?Confirmed ?Last Taken ?Type alendronate 70 mg tablet 70 mg PO QWEEK 10/21/21 07/13/23 Unknown History atorvastatin 20 mg tablet 20 mg PO DAILY 10/21/21 07/13/23 Unknown History calcium citrate 315 mg-vitamin D3 2 tab PO BID 10/21/21 07/13/23 Unknown History 5 mcg (200 unit) tablet levothyroxine 137 mcg tablet 137 mcg PO DAILY 10/21/21 07/13/23 Unknown History Exam Height,Weight and Vital Signs: Height 5 ft 3 in Weight 74.843 kg Assessment and Plan Assessment Anesthesia Assessment: Chart Reviewed Final Anesthetic Review Family History of Problems with Anesthesia: No History of Problems with Anesthesia: No Documented by User: Ryann Solomon MD 07/13/23 09:30 [facility] Past Medical History Medical History (Updated 01/27/23 @ 11:18 by Mari Unger PA-C) Thyroid disease High cholesterol Surgical History Surgical History (Updated 07/09/23 @ 14:47 by Dolores Wilkins, ESTUARDO) Hx of colonoscopy Total knee replacement status Social History Social History (Updated 01/27/23 @ 11:21 by Mari Unger PA-C) Household Members Other:: 5 kids- single Patient Tobacco Use Status: Never used Tobacco Advance Directives: No Advance Directives Information Provided: Yes Current occupational status: unemployed and 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 Allergies Allergy/AdvReac Type Severity Reaction Status Date / Time No Known Allergies Allergy Verified 01/27/23 11:06 Home Medications ?Medication ?Instructions ?Recorded ?Confirmed ?Last Taken ?Type alendronate 70 mg tablet 70 mg PO QWEEK 10/21/21 07/13/23 Unknown History atorvastatin 20 mg tablet 20 mg PO DAILY 10/21/21 07/13/23 Unknown History calcium citrate 315 mg-vitamin D3 2 tab PO BID 10/21/21 07/13/23 Unknown History 5 mcg (200 unit) tablet levothyroxine 137 mcg tablet 137 mcg PO DAILY 10/21/21 07/13/23 Unknown History Exam Airway Mallampati Class: II (missing 2 teeth) TM Dist: >3cm Neck ROM: Full Heart: rrr Lungs: cta Assessment and Plan Assessment Anesthesia Assessment: Anesthesia Plan Discussed Final Anesthetic Review NPO: Yes ASA Class: II Final Preanesthetic Review: No Changes in Pt Med Stat, Meds/Allgs Chart Reviewed and Consent Obtained/Reviewed Patient Risk: Low Procedure Risk: Low Anesthetic Plan Anesthetic Plan: MAC: Disposition: Standard PACU
[2023-07-13 09:16] VITALS: BMI 28.3
--- NOTE | 2023-07-13 09:16 | MHC.SHP ---
Pre-Procedural Eval Section A - 24 Hr Update-Section A only Date of Service: 07/13/23 The patient is an INPATIENT: No The patient has been examined within 24 hours of the surgical procedure. The History & Physical has been completed within 30 days and I have reviewed it.: No Section B - Complete if H&P > 30 days Chief Complaint: Surveillance for colon polyps Relevant Family History (Specify if Yes): No Relevant Social History: None Present Medications: see Short Stay Collaborative assessment Medical History: Significant History (Thyroid disease High cholesterol) History of Previous Operations: Relevant previous surgery/procedure and date(s) (Status post colonoscopy, status post total knee replacement) Allergies: Allergies Allergy/AdvReac Type Severity Reaction Status Date / Time No Known Allergies Allergy Verified 01/27/23 11:06 Review of Systems Sugical H&P ROS: Negative: Constitution, Cardiovascular, Respiratory and Gastrointestinal Exam Surgical H&P Exam: Normal: Heart, Normal: Lungs, Normal: Extremities and Normal: Abdomen Plan Diagnosis/Plan: Unchanged I have reviewed the history and physical and performed a pertinent physical examination on my patient. No changes have occurred unless specified. Time Spent With Patient Time: Total time managing care of this patient today ____ minutes.
--- NOTE | 2023-07-13 09:26 | P.OP_ITS ---
Operative Note Operative Note Date of Service: 07/13/23 Narrative: COLONOSCOPY TILL CECUM WITH BIOPSIES AND SNARE POLYPECTOMY Pre-op diagnosis: Surveillance for colon polyps. Post-op diagnosis:? Colon polyps, Diverticulosis, hemorrhoids Endoscopist:? Marques Hackett MD Anesthesia:?MAC Consent: Indications for the procedure and potential complications of bleeding, perforation, reaction to medications and missed diagnosis were discussed with the patient with the help of a [employer] foreign language teacher and informed consent was obtained. Instrument: Olympus PCF H 190 L variable stiffness pediatric colonoscope Monitoring: Vital signs and clinical assessment, intermittent blood pressure monitoring, continuous EKG monitoring, Pulse oximetry and Carbon Dioxide monitoring were done throughout the procedure. Please see anesthesia flowsheet. Colon withdrawl time was 27 minutes. Procedure: The patient was placed in the left lateral decubitis position and pre-procedure medications were administered. After a digital rectal examination of the ano-rectum, the video colonoscope was inserted into the rectum and advanced through the colon to the cecum. The colonoscope was slowly withdrawn in a retrograde panoramic fashion and the colon mucosa was carefully examined including a retroflexed view of the rectum. Findings and interventions are described below. Procedure Difficulty: without difficulty Findings: Terminal Ileum: Not evaluated Cecum: A 10-12 mm sessile polyp - removed with a hot snare. Ascending Colon: A 9-10 mm sessile polyp in the mid ascending colon - removed with a hot snare. A 4-5 mm sessile polyp in the distal ascending colon - removed with a cold snare Transverse Colon: A 2-3 mm sessile polyp - removed with a cold biopsy Descending Colon: Moderate diverticulosis Sigmoid Colon: A 3-4 mm sessile polyp - removed with a cold biopsy. Moderate diverticulosis Rectum: Normal Ano-rectum: Moderate internal hemorrhoids Colon preparation: Excellent after some irrigation. Telephone Bowel Preparation Scale Right colon; 3 Transverse colon: 3 Left colon; 3 (0 = Unprepared colon segment with mucosa not seen due to solid stool that cannot be cleared. 1 = Portion of mucosa of the colon segment seen, but other areas of the colon segment not well seen due to staining, residual stool and/or opaque liquid. 2 = Minor amount of residual staining, small fragments of stool and/or opaque liquid, but mucosa of colon segment seen well. 3 = Entire mucosa of colon segment seen well with no residual staining, small fragments of stool or opaque liquid) Impression and Post Procedure Diagnosis: Colonoscopy Findings: Five small to medium sized polyps were removed Moderate diverticulosis seen in the left colon Moderate hemorrhoids on retroflexed exam. Plan: Pt has a FU appointment on 07/27/[address] Guevara (I messaged MA to switch appt to SCOTT Bhagat) Repeat Colonoscopy in 3-5 years if polyps are adenomatous and 10 year if polyps are hyperplastic. Above findings were reviewed with the patient with the help of an [facility] [place] [place] [employer] [place] foreign language teacher and relevant handouts were given and the discharge area.
[2023-07-13] MEDS: Lactated Ringers 1,000 ML 100 ML IVCONT (09:31)
[2023-07-13 10:07] VITALS: BP 116/70; PULSE 71; RESP 16; TEMP 36.1; O2SAT 98
[2023-07-13 10:22] VITALS: BP 141/82; PULSE 75; RESP 18; TEMP 36.1; O2SAT 100
== END 2023-07-13 11:09 | disposition home or self-care (01) ==
PROVIDERS: Visit Provider Internal Medicine Gastroenterology
PROC: 0DJD8ZZ Inspection of Lower Intestinal Tract, Via Natural or Artificial Opening Endoscopic (ICD-10-PCS; CPT 45378; principal; 2023-07-13 10:50)
DX: Z12.11 Encounter for screening for malignant neoplasm of colon (principal); Z86.010 Personal history of colon polyps; D12.0 Benign neoplasm of cecum; D12.2 Benign neoplasm of ascending colon; K63.5 Polyp of colon; K57.30 Diverticulosis of large intestine without perforation or abscess without bleeding; K64.8 Other hemorrhoids; E78.00 Pure hypercholesterolemia, unspecified; E07.9 Disorder of thyroid, unspecified; Z79.899 Other long term (current) drug therapy; Z79.1 Long term (current) use of non-steroidal anti-inflammatories (NSAID)
CPT/HCPCS: 45385; 45380; 88305; J2704

== ENCOUNTER → 2023-07-13 08:41 | Outpatient (BNV) | payer OTHER, SELFPAY | PROVIDERS: Visit Provider Internal Medicine Gastroenterology | DX: Z12.11 Encounter for screening for malignant neoplasm of colon (principal); K63.5 Polyp of colon; K57.90 Diverticulosis of intestine, part unspecified, without perforation or abscess without bleeding; K64.8 Other hemorrhoids; Z86.010 Personal history of colon polyps | CPT/HCPCS: 45380; 45385 ==

== ENCOUNTER 2023-09-02 14:51 | Outpatient (AMB) | payer OTHER, SELFPAY ==
--- NOTE | 2023-09-02 14:58 | A.OFFVIS_ITS ---
Vital Signs 09/02/23 15:01 Height 4 ft 11 in Weight 162 lb BMI 32.7 BP 121/50 L Blood Pressure Location Lt brachial Position Sitting Pulse 91 Intake Visit Reasons: colo results Intake Note: Patient follow up for Colonoscopy results Patient cc: constipation and acid reflex with burning sensation on and off. Denies any other GI issues. 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 Accompanied by: Self / Same As Patient Allergies No Known Allergies Allergy (Verified 09/02/23 14:57) Medication List - Last Reconciled 09/02/23 by Mari Unger PA-C alendronate 70 mg PO QWEEK atorvastatin 20 mg PO DAILY calcium citrate-vitamin D3 315 mg-5 mcg (200 unit) 2 tabs PO BID ibuprofen 600 mg PO Q6-8H PRN levothyroxine 137 mcg PO DAILY HPI Comments Details: 67-year-old female follows up after colonoscopy with polypectomy She tolerated procedure well Reviewed procedure report, pathology and recommendation Chronic constipation-is increased with taking calcium Appetite is good No nausea, vomiting, hematemesis, fever chills PFSH Medical History (Updated 09/04/23 @ 16:09 by Mari Unger PA-C) Thyroid disease High cholesterol Surgical History Hx of colonoscopy Total knee replacement status Social History Household Members Other:: 5 kids- single Patient Tobacco Use Status: Never used Tobacco Current occupational status: unemployed and retired 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 Review of Systems Const All systems reviewed & are unremarkable except as noted in HPI and below GI Denies abdominal pain, Reports constipation, Denies nausea and Denies vomiting Physical Exam Vital Signs: Last Vital Signs Pulse 91 09/02/23 15:01 BP 121/50 L 09/02/23 15:01 BMI result Body Mass Index 32.7 Const General: cooperative, comfortable and no acute distress Orientation/consciousness: patient oriented x3 Limitations: language barrier Resp Effort & Inspection: normal respiratory effort and able to speak in complete sentences Neuro General: patient oriented x3 Extrem General: Yes full ROM Psych Appearance: grossly normal Mental Status: mental status grossly normal Speech and movement: Normal speech and movement present Affect: normal affect Attitude: cooperative Results Reviewed Results Reviewed: Impression and Post Procedure Diagnosis: Colonoscopy Findings: Five small to medium sized polyps were removed Moderate diverticulosis seen in the left colon Moderate hemorrhoids on retroflexed exam. Plan: Pt has a FU appointment on 07/27/[address] Guevara (I myriam ESCOBAR MA to switch appt to SCOTT Bhagat) Repeat Colonoscopy in 3-5 years if polyps are adenomatous and 10 year if polyps are hyperplastic. Above findings were reviewed with the patient with the help of an [facility] Irish modern languages professor and relevant handouts were given and the discharge area. Name: Samanta Ruano Age/Sex: 67/F Attending: Marques Hackett MD : 1955 Submitted by: Marques Hackett MD Copies to: [facility] MR #: [id number] Status: [facility] Collected: 07/13/23 Location: [facility] Received: 07/13/23 Diagnosis A. Cecum, polypectomy: Fragments of tubular adenoma; negative for high-grade dysplasia or carcinoma. B. Colon, ascending, polypectomies: Fragments of tubular adenomata; negative for high-grade dysplasia or carcinoma. C. Colon, transverse, polypectomy: Colonic mucosa with prominent lymphoid aggregate. D. Colon, sigmoid, polypectomy: Colonic mucosa with prominent lymphoid aggregate. Clinical History Pre-Op Dx: Surveillance for colon polyps Post-Op Dx: Colon polyps, diverticulosis, hemorrhoids Microscopic Description A-D. Microscopic sections reviewed. Material Received A. Cecal polyp B. Ascending colon polyps C. Transverse colon polyp D. Sigmoid polyp Gross Description Received in 4 parts. Part A: Received in formalin labeled ?cecal polyp? are 2 bell irregular tissue fragments measuring less than 0.1 and 0.15 cm, submitted in toto in a cassette labeled A. Part B: Received in formalin labeled ?ascending polyps? are 3 pale, roque-white irregular tissue fragments each measuring 0.15 cm, submitted in toto in a cassette labeled B. Part C: Received in formalin labeled ?transverse colon polyp? is a 0.35 cm bell- pink irregular tissue fragment, submitted in toto in a cassette labeled C. Part D: Received in formalin labeled ?sigmoid polyp? is a 0.25 cm bell-pink irregular tissue fragment, submitted in toto in a cassette labeled D. Patient: Samanta Ruano Age/Sex: 67/F MR#: [id number] Page 1 of 2 3 year repeat Assessment & Plan Assessment & Plan (1) History of adenomatous polyp of colon: Comment: Adenomas Code(s): Z86.010 - Personal history of colonic polyps Category: Medical Plan: Repeat asymptomatic colonoscopy 3 years Medications: New psyllium husk (Metamucil) mix into at least 8 oz of water or juice before administering 1 tbsp PO DAILY 30 days 660 grams 5RF docusate sodium (Colace) 200 mg (2 x 100 mg) PO BEDTIME 30 days 60 caps 5RF Patient Instructions: Reviewed procedure report, pathology and recommendations Questions answered to her satisfaction Maintain high-fiber diet Will give trial to Metamucil Avoid straining Repeat asymptomatic colonoscopy 3 years reminder will be placed Coding Level of Care Code New Pt Level 3 (08086) Diagnoses History of adenomatous polyp of colon Z86.010 Time Spent (min) 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
[2023-09-02 15:01] VITALS: BP 121/50; PULSE 91; BMI 32.7
== END 2023-09-02 16:11 | disposition home or self-care (01) ==
PROVIDERS: Visit Provider Physician Assistant
DX: K59.04 Chronic idiopathic constipation (principal); D12.0 Benign neoplasm of cecum; K57.90 Diverticulosis of intestine, part unspecified, without perforation or abscess without bleeding; K64.8 Other hemorrhoids
CPT/HCPCS: 99213

== ENCOUNTER → 2023-09-02 14:51 | Outpatient (BNVA) | payer OTHER, SELFPAY | PROVIDERS: Visit Provider Physician Assistant | DX: K59.04 Chronic idiopathic constipation (principal); Z86.010 Personal history of colon polyps; Z71.2 Person consulting for explanation of examination or test findings | CPT/HCPCS: 99212 ==

== ENCOUNTER 2023-09-29 09:19 | Outpatient (REF) | payer OTHER, SELFPAY | END 2023-09-29 09:20 | disposition home or self-care (01) | LOC: HO.MAMMO 09:19 | PROVIDERS: Visit Provider Registered Nurse | DX: Z12.31 Encounter for screening mammogram for malignant neoplasm of breast (principal) | CPT/HCPCS: 77063; 77067 ==

== ENCOUNTER → 2023-09-29 09:30 | Outpatient (BNV) | payer OTHER, SELFPAY | PROVIDERS: Visit Provider Radiology Diagnostic Radiology | DX: Z12.31 Encounter for screening mammogram for malignant neoplasm of breast (principal) | CPT/HCPCS: 77063; 77067 ==

== ENCOUNTER 2023-11-20 17:29 | Outpatient (REF) | payer OTHER, SELFPAY ==
[2023-11-21 11:33] LABS: Bacterial Vaginosis PCR NEGATIVE (Negative); Candida Group PCR NOT DETECTED (Not Detect); Candida glab krusei PCR NOT DETECTED (Not Detect); Trichomonas vaginalis PCR NOT DETECTED (Not Detect)
== END 2023-11-20 17:30 | disposition home or self-care (01) ==
LOC: HO.HHCLNP 17:29
PROVIDERS: Visit Provider Registered Nurse
DX: N30.01 Acute cystitis with hematuria (principal); B96.20 Unspecified Escherichia coli [E. coli] as the cause of diseases classified elsewhere
CPT/HCPCS: 0352U; 87086; 87088; 87186

== ENCOUNTER 2023-11-25 11:11 | Emergency (ER) | payer OTHER, SELFPAY ==
--- NOTE | ~2023-11-25 | XR_ITS ---
EXAMINATION: XR CHEST CLINICAL INFORMATION: Chest pain COMPARISON: None available. TECHNIQUE: 2 views of the chest were obtained. FINDINGS: Lungs grossly clear. Heart and pulmonary vessels normal. No pleural effusion. XR/XR chest 2V IMPRESSION: No active disease. Electronically signed by: Javier Nina MD 11/25/2023 05:03 PM EDT
[2023-11-25 11:41] VITALS: BP 139/66; PULSE 83; RESP 18; TEMP 36.8; O2SAT 98; BMI 33.4
--- NOTE | 2023-11-25 11:43 | ED_ITS ---
HPI - General Adult General Chief complaint: Chest Pain Stated complaint: SOB Time Seen by Provider: 11/25/23 20:39 Source: patient Limitations: language barrier History of Present Illness ED Provider: Marissa Shelby PA-C HPI narrative: 68 year old female with history of osteopenia, osteoporosis, hyperlipidemia and hypothyroidism presents with right upper extremity pain x3 days. Patient states she is having pain over the right scapular region, right shoulder and right upper anterior chest. Pain worse with palpation of all regions, and with range of motion of the upper extremity. Patient states when she takes a breath, it elicits pain, but she is not SOB. Associated paresthesias in the hand at times. Patient denies new activity, heavy lifting or trauma. Related Data Home Medications ?Medication ?Instructions ?Recorded ?Confirmed alendronate 70 mg tablet 70 mg PO QWEEK 10/21/21 09/02/23 atorvastatin 20 mg tablet 20 mg PO DAILY 10/21/21 09/02/23 calcium citrate 315 mg-vitamin D3 2 tab PO BID 10/21/21 09/02/23 5 mcg (200 unit) tablet levothyroxine 137 mcg tablet 137 mcg PO DAILY 10/21/21 09/02/23 Previous Rx's ?Medication ?Instructions ?Recorded ibuprofen 600 mg tablet 600 mg PO Q6-8H PRN pain #40 tabs 10/22/21 docusate sodium 100 mg capsule 200 mg (2 x 100 mg) PO BEDTIME 30 09/02/23 (Colace) days #60 caps psyllium husk 3.4 gram/5.4 gram 1 tbsp PO DAILY 30 days #660 grams 09/02/23 oral powder (Metamucil) methocarbamol 500 mg tablet 500 mg PO TID PRN pain #15 tabs 11/25/23 methylprednisolone 4 mg tablets in 4 mg PO QAM #1 ea 11/25/23 a dose pack (Medrol (Ronnie)) Allergies Allergy/AdvReac Type Severity Reaction Status Date / Time No Known Allergies Allergy Verified 11/25/23 11:44 Review of Systems 2 Review of Systems: Yes all other systems are reviewed and are negative Constitutional: Constitutional: Denies fever(s) Cardiovascular: Cardiovascular: Reports chest pain and Denies dyspnea Respiratory: Respiratory: Denies dyspnea Gastrointestinal: Gastrointestinal: Reports no additional gastrointestinal complaints Musculoskeletal: Musculoskeletal: Reports back pain, Reports arthralgias and Reports tingling Neurologic: Reports tingling PMFSH Past Medical History Attestation statement: The following information was validated with the patient. 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 Physical Exam ED Vital Signs: Vital Signs - 24 hr 11/25/23 11:41 11/25/23 18:21 11/25/23 21:19 Temperature 98.3 F 97.8 F 98.1 F Pulse Rate 83 69 75 Respiratory Rate 18 18 13 Blood Pressure 139/66 108/63 148/71 H Pulse Oximetry 98 99 99 Oxygen Delivery Method Room Air Room Air BMI result Body Mass Index 33.4 Const Other: Alert, well in appearance Orientation/consciousness: patient oriented x3 Neck Other: Full range of motion, no midline tenderness Chest Other: Right upper chest wall tender to palpation without overlying erythema, ecchymosis or deformity Resp Other: Nonlabored respirations, lungs clear to auscultation Cardio Other: Normal peripheral perfusion, radial pulses +2 bilaterally Back/Spine/Pelvis Other: Pain elicited with palpation over right trapezius and scapula Skin Other: Warm dry no rash Neuro General: patient oriented x3, no focal motor deficits and CN's II-XI intact bilaterally Extrem Other: Pain with palpation of bicipital groove, patient able to perform range of motion of the right upper extremity, however she can not fully raise her arm above her head Psych Other: Calm cooperative Course Course Course Narrative: RME, this is a rapid medical exam performed by Sandor De La Garza please refer to primary provider for complete H&P- 68-year-old female presents for evaluation of right-sided chest discomfort with associated shortness of breath. Plan for chest x-ray, EKG, labs as well as viral swabs. Vital signs are stable in triage. Medical Decision Making Medical Decision Making [facility] Narrative: 68 year old female with history of osteopenia, osteoporosis, hyperlipidemia and hypothyroidism presents with right upper extremity pain x3 days. Patient states she is having pain over the right scapular region, right shoulder and right upper anterior chest. Pain worse with palpation of all regions, and with range of motion of the upper extremity. Patient states when she takes a breath, it elicits pain, but she is not SOB. Associated paresthesias in the hand at times. Patient denies new activity, heavy lifting or trauma. 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 We will be treating with methocarbamol and a steroid taper. At about calcific tendinitis, however she has overall good range of motion. Thought about fracture dislocation, however there was no mechanism of injury and no deformity on exam, x-rays of shoulder of no value. Thought about dissection, however she is neurovascularly intact, she is not overtly hypertensive. Thought about PE given pleuritic nature of her discomfort, however he is not short of breath or hypoxic she is not tachycardic, she has no objective signs symptoms for DVT on exam, I am deferring a dimer. Patient was in RMA patient, screening labs including chest x-ray were obtained. I have independently reviewed the following tests: Labs: No leukocytosis, not anemic, cardiac enzyme negative Chest x-ray: No pleural effusion, no pulmonary edema, no rib fractures, no pneumonia Differential Diagnosis Differential Diagnoses: The differential diagnosis associated with the presentation includes Lab Data 11/25/23 11:56 11/25/23 11:56 Labs: Lab Results 11/25/23 11/25/23 11/25/23 Range/Units 11:52 11:55 11:56 WBC 5.1 (4.8-10.8) X10*3/uL RBC 4.06 L (4.20-5.50) X10*6/uL Hgb 12.9 (12.0-16.0) g/dl Hct 37.5 (37.0-47.0) % MCV 92.4 (80.0-98.0) fL MCH 31.8 (27.0-33.0) pg MCHC 34.4 (31.0-35.0) g/dl RDW 11.9 (11.0-16.0) % Plt Count 143 L (160-400) X10*3/uL MPV 11.4 (9.4-12.3) fL Immature Gran % (Auto) 0.4 (0.0-0.4) % Neut % (Auto) 53.9 (45-73) % Lymph % (Auto) 32.8 (20-40) % [place] % (Auto) 9.8 (2-11) % Eos % (Auto) 2.3 (0-4) % Baso % (Auto) 0.8 (0-2) % Lymph # (Auto) 1.7 (1.2-4.9) X10*3/uL [place] # (Auto) 0.5 (0.1-1.2) X10*3/uL Eos # (Auto) 0.1 (0.0-0.4) X10*3/uL Baso # (Auto) 0.0 (0.0-0.2) X10*3/uL Abs Immat Gran (auto) 0.02 (0.00-0.03) X10*3/uL Absolute Neuts (auto) 2.8 (2.0-8.3) x10*3/uL Absolute Nucleated RBC 0.000 (0.0-0.012) X10*3/uL Nucleated RBC % (auto) 0.0 (0.0-0.2) /100WBC PT 11.1 (11.1-13.3) SEC INR 0.9 (0.9-1.1) Sodium 143 (135-145) mmol/L Potassium 3.9 (3.3-5.1) mmol/L Chloride 109 H (96-108) mmol/L Carbon Dioxide 29 (22-29) mmol/L Anion Gap 9 L (12-20) BUN 11 (9-16) mg/dL Creatinine 0.78 (0.5-1.4) mg/dL Estim Creat Clear Calc 59.2 Estimated GFR > 60 Random Glucose 143 H (60-115) mg/dL Calcium 9.9 (8.4-10.2) mg/dL Total Bilirubin 0.5 (0.0-1.0) mg/dL AST 36 H (5-31) U/L ALT 47 H (0-31) U/L Alkaline Phosphatase 85 (39-117) U/L Troponin I High Sens < 2.7 (<3.5-17.0) ng/L B-Natriuretic Peptide 19 (<100) pg/mL Total Protein 7.4 (6.5-8.0) g/dL Albumin 3.9 (3.5-5.0) g/dL Lipase 23 (8-78) U/L Influenza Type A (PCR) NEGATIVE (Negative) Influenza Type B (PCR) NEGATIVE (Negative) RSV RNA Qual (PCR) NEGATIVE (Negative) SARS-CoV-2 RNA (RT-PCR) NEGATIVE (Negative) Discharge Plan Discharge Clinical Impression: Cervical radiculopathy Patient Disposition: Home, Self-Care Instructions: Cervical Radiculopathy (ED) Additional Instructions: All of your screening labs including cardiac enzymes were normal. There were no concerning changes on your chest x-ray. Your pain is consistent with a potential pinched nerve in your neck, likely from your arthritis and/or repetitive activity. See home care instructions. Use the steroid taper as directed, use of methocarbamol as needed, this is the muscle relaxant. To note the methocarbamol we will cause drowsiness, do not drive or operate machinery while taking this medication. Follow up with your primary care provider within the next 5 days, if your symptoms persist, you may require physical therapy, they should be able to help expedite this for you. Prescriptions: New methylprednisolone [Medrol (Ronnie)] 4 mg tablets,dose pack 4 mg PO QAM Qty: 1 0RF Rx Instructions: Take per package instructions methocarbamol 500 mg tablet 500 mg PO TID PRN (Reason: pain) Qty: 15 0RF No Action ibuprofen 600 mg tablet 600 mg PO Q6-8H PRN (Reason: pain) Qty: 40 0RF calcium citrate-vitamin D3 315 mg-5 mcg (200 unit) tablet 2 tab PO BID alendronate 70 mg tablet 70 mg PO QWEEK atorvastatin 20 mg tablet 20 mg PO DAILY levothyroxine 137 mcg tablet 137 mcg PO DAILY docusate sodium [Colace] 100 mg capsule 200 mg PO BEDTIME 30 Days Qty: 60 5RF Metamucil 3.4 gram/5.4 gram powder 1 tbsp PO DAILY 30 Days Qty: 660 5RF Rx Instructions: mix into at least 8 oz of water or juice before administering Print Language: Tamazight
--- NOTE | 2023-11-25 11:43 | ECG_ITS ---
Test Reason : chest pain Blood Pressure : / mmHG Vent. Rate : 082 BPM Atrial Rate : 082 BPM P-R Int : 156 ms QRS Dur : 072 ms QT Int : 368 ms P-R-T Axes : 027 007 003 degrees QTc Int : 429 ms Normal sinus rhythm Normal ECG When compared with ECG of 24-FEB-2019 12:46, No significant change was found Referred By: Jem De La Garza Electronically Signed By:JAIME KEENE
[2023-11-25 12:00] LABS: MANUAL DIFF FLAG NO
[2023-11-25 12:03] LABS: Basophils Percent Auto 0.8 % (0-2); Eosinophils Absolute Auto 0.1 X10*3/uL (0.0-0.4); Eosinophils Percent Auto 2.3 % (0-4); Hematocrit 37.5 % (37.0-47.0); Hemoglobin 12.9 g/dl (12.0-16.0); Imm Gran Abs Auto 0.02 X10*3/uL (0.00-0.03); Imm Gran Pct Auto 0.4 % (0.0-0.4); Lymphocytes Absolute Auto 1.7 X10*3/uL (1.2-4.9); Lymphocytes Percent Auto 32.8 % (20-40); Mean Corpuscular HGB Conc 34.4 g/dl (31.0-35.0); Mean Corpuscular Hemoglobin 31.8 pg (27.0-33.0); Mean Corpuscular Volume 92.4 fL (80.0-98.0); Mean Platelet Volume 11.4 fL (9.4-12.3); Monocytes Absolute Auto 0.5 X10*3/uL (0.1-1.2); Monocytes Percent Auto 9.8 % (2-11); Neutrophils Absolute Auto 2.8 x10*3/uL (2.0-8.3); Neutrophils Percent Auto 53.9 % (45-73); Platelet Count 143 X10*3/uL (160-400); Red Blood Count 4.06 X10*6/uL (4.20-5.50); Red Cell Distribution Width 11.9 % (11.0-16.0); White Blood Count 5.1 X10*3/uL (4.8-10.8)
[2023-11-25 12:10] LABS: INTERNATIONAL NORM RATIO 0.9 (0.9-1.1); Prothrombin Time 11.1 SEC (11.1-13.3)
[2023-11-25 12:20] LABS: Alanine Aminotransferase 47 U/L (0-31); Albumin Level 3.9 g/dL (3.5-5.0); Alkaline Phosphatase 85 U/L (39-117); Anion Gap 9 (12-20); Aspartate Amino Transferase 36 U/L (5-31); Bilirubin Total 0.5 mg/dL (0.0-1.0); Blood Urea Nitrogen 11 mg/dL (9-16); Calcium 9.9 mg/dL (8.4-10.2); Carbon Dioxide 29 mmol/L (22-29); Chloride 109 mmol/L (96-108); Creatinine Clr Calc Pharmacy 59.2; Estimated Glomerular Filt Rate > 60; Glucose Random 143 mg/dL (60-115); Lipase 23 U/L (8-78); Potassium 3.9 mmol/L (3.3-5.1); Sodium 143 mmol/L (135-145); Total Protein 7.4 g/dL (6.5-8.0)
[2023-11-25 12:24] LABS: B Type Natriuretic Peptide 19 pg/mL (<100)
[2023-11-25 12:32] LABS: Troponin-I High Sensitivity < 2.7 ng/L (<3.5-17.0)
[2023-11-25 12:39] LABS: Influenza A PCR NEGATIVE (Negative); Influenza B PCR NEGATIVE (Negative); Resp Syncy Virus RNA Qual PCR NEGATIVE (Negative); SARS COV2 PCR INHOUSE NEGATIVE (Negative)
[2023-11-25 18:21] VITALS: BP 108/63; PULSE 69; RESP 18; TEMP 36.6; O2SAT 99
[2023-11-25 21:19] VITALS: BP 148/71; PULSE 75; RESP 13; TEMP 36.7; O2SAT 99
--- NOTE | 2023-11-25 23:49 | PC.NURSE ---
Med not in pyxis, pharmacy made aware. Pt did not want to wait for medication. Med not given.
[2023-11-25 23:50] VITALS: BP 148/71; PULSE 75; RESP 13; TEMP 36.7; O2SAT 99
== END 2023-11-25 23:51 | disposition home or self-care (01) ==
PROVIDERS: Physician Assistant; Emergency Provider Emergency Medicine
DX: M54.12 Radiculopathy, cervical region (principal); M25.511 Pain in right shoulder; M79.621 Pain in right upper arm; R07.9 Chest pain, unspecified; E07.9 Disorder of thyroid, unspecified; Z79.899 Other long term (current) drug therapy; Z03.818 Encounter for observation for suspected exposure to other biological agents ruled out
CPT/HCPCS: 0241U; 36415; 71046; 80053; 83690; 83880; 84484; 85025; 85610; 93005; 99283; 99284

== ENCOUNTER 2023-12-15 09:25 | Outpatient (REF) | payer OTHER, SELFPAY ==
[2023-12-15 11:13] LABS: MANUAL DIFF FLAG NO
[2023-12-15 11:17] LABS: Basophils Percent Auto 0.6 % (0-2); Eosinophils Absolute Auto 0.2 X10*3/uL (0.0-0.4); Hematocrit 36.8 % (37.0-47.0); Hemoglobin 12.8 g/dl (12.0-16.0); Imm Gran Abs Auto 0.02 X10*3/uL (0.00-0.03); Imm Gran Pct Auto 0.4 % (0.0-0.4); Lymphocytes Absolute Auto 1.4 X10*3/uL (1.2-4.9); Lymphocytes Percent Auto 30.3 % (20-40); Mean Corpuscular HGB Conc 34.8 g/dl (31.0-35.0); Mean Corpuscular Hemoglobin 31.9 pg (27.0-33.0); Mean Corpuscular Volume 91.8 fL (80.0-98.0); Mean Platelet Volume 12.2 fL (9.4-12.3); Monocytes Absolute Auto 0.4 X10*3/uL (0.1-1.2); Monocytes Percent Auto 8.9 % (2-11); Neutrophils Absolute Auto 2.6 x10*3/uL (2.0-8.3); Neutrophils Percent Auto 55.8 % (45-73); Platelet Count 121 X10*3/uL (160-400); Red Blood Count 4.01 X10*6/uL (4.20-5.50); White Blood Count 4.7 X10*3/uL (4.8-10.8)
[2023-12-15 11:29] LABS: Estimated Average Glucose 126 mg/dL
[2023-12-15 12:08] LABS: Alanine Aminotransferase 38 U/L (0-31); Albumin Level 3.9 g/dL (3.5-5.0); Alkaline Phosphatase 74 U/L (39-117); Anion Gap 11 (12-20); Aspartate Amino Transferase 28 U/L (5-31); Bilirubin Total 0.6 mg/dL (0.0-1.0); Blood Urea Nitrogen 11 mg/dL (9-16); Calcium 9.3 mg/dL (8.4-10.2); Carbon Dioxide 24 mmol/L (22-29); Chloride 110 mmol/L (96-108); Cholesterol 134 mg/dL (<200); Estimated Glomerular Filt Rate > 60; Glucose Random 125 mg/dL (60-115); HDL Cholesterol 42 mg/dL (>40); LDL Cholesterol Calculated 65 mg/dL (<100); Potassium 3.7 mmol/L (3.3-5.1); Sodium 141 mmol/L (135-145); Total Protein 7.2 g/dL (6.5-8.0); Triglycerides 139 mg/dL (<150)
[2023-12-15 12:10] LABS: TSH reflex Free T4 1.37 uIU/mL (0.32-4.0)
== END 2023-12-15 09:26 | disposition home or self-care (01) ==
LOC: HO.HHCL 09:25
PROVIDERS: Visit Provider Registered Nurse
DX: Z00.00 Encounter for general adult medical examination without abnormal findings (principal); Z13.1 Encounter for screening for diabetes mellitus
CPT/HCPCS: 36415; 80053; 80061; 83036; 84443; 85025

== ENCOUNTER 2024-01-01 11:07 | Outpatient (REF) | payer OTHER, SELFPAY ==
[2024-01-01 13:24] LABS: MANUAL DIFF FLAG NO
[2024-01-01 13:49] LABS: Basophils Absolute Auto 0.1 X10*3/uL (0.0-0.2); Basophils Percent Auto 1.1 % (0-2); Eosinophils Absolute Auto 0.1 X10*3/uL (0.0-0.4); Eosinophils Percent Auto 2.2 % (0-4); Hematocrit 37.7 % (37.0-47.0); Hemoglobin 12.7 g/dl (12.0-16.0); Imm Gran Abs Auto 0.02 X10*3/uL (0.00-0.03); Imm Gran Pct Auto 0.4 % (0.0-0.4); Lymphocytes Absolute Auto 1.7 X10*3/uL (1.2-4.9); Lymphocytes Percent Auto 35.9 % (20-40); Mean Corpuscular HGB Conc 33.7 g/dl (31.0-35.0); Mean Platelet Volume 11.9 fL (9.4-12.3); Monocytes Absolute Auto 0.5 X10*3/uL (0.1-1.2); Monocytes Percent Auto 10.6 % (2-11); Neutrophils Absolute Auto 2.3 x10*3/uL (2.0-8.3); Neutrophils Percent Auto 49.8 % (45-73); Platelet Count 150 X10*3/uL (160-400); Red Blood Count 3.97 X10*6/uL (4.20-5.50); Red Cell Distribution Width 12.3 % (11.0-16.0); White Blood Count 4.6 X10*3/uL (4.8-10.8)
[2024-01-01 14:05] LABS: Alanine Aminotransferase 38 U/L (0-31); Alkaline Phosphatase 76 U/L (39-117); Aspartate Amino Transferase 30 U/L (5-31); Bilirubin Direct 0.2 mg/dL (0.0-0.5); Bilirubin Total 0.6 mg/dL (0.0-1.0); Total Protein 7.1 g/dL (6.5-8.0)
[2024-01-02 04:58] LABS: HBS Num1 0.51 mIU/mL (0-7.99); HBc Num1 0.13 S/CO (0.00-0.79); HBsAGNum1 0.31 S/CO (0.00-0.99); Hepatitis B Core Antibody Nonreactive (Nonreactive); Hepatitis B Surface Antigen Negative (Negative); ~Hepatitis B Surface Antibody NONREACTIVE (Nonreactive); ~Hepatitis C Antibody Nonreactive (Nonreactive)
[2024-01-09 18:03] LABS: FIB-ALT 32 U/L (6-29); FIB-Alpha-2-Macroglobulin 148 mg/dL (106-279); FIB-Apolipoprotein A1 155 mg/dL (101-198); FIB-GGT 32 U/L (3-65); FIB-Haptoglobin 123 mg/dL (43-212); FIB-Total Bilirubin 0.4 mg/dL (0.2-1.2); Liver Fibrosis Score 0.14; Liver Fibrosis Stage F0; Nec Inflam Act Grade A0; Nec Inflam Act Score 0.13
== END 2024-01-01 11:08 | disposition home or self-care (01) ==
LOC: HO.HHCL 11:07
PROVIDERS: Visit Provider Registered Nurse
DX: D69.6 Thrombocytopenia, unspecified (principal); R79.89 Other specified abnormal findings of blood chemistry
CPT/HCPCS: 36415; 80076; 81596; 85025; 86704; 86706; 86803; 87340

== ENCOUNTER 2024-01-08 12:04 | Outpatient (REF) | payer OTHER, SELFPAY | END 2024-01-08 12:05 | disposition home or self-care (01) | LOC: HO.XRAY 12:04 | PROVIDERS: PCP Registered Nurse; Visit Provider Registered Nurse | DX: M17.0 Bilateral primary osteoarthritis of knee (principal) | CPT/HCPCS: 73562 ==

== ENCOUNTER 2024-10-03 08:49 | Outpatient (REF) | payer OTHER, SELFPAY ==
--- OUTSIDE RECORDS SUMMARY | 2024-10-03 09:01 | XMS_ITS | Clinical Summary ---
Author Organization [employer] Address [address] [place] [address] [address] [place] [address] Care Team Providers Care Hardboard Supervisor Name Role Phone Willow Diamond REGINA Primary Care Provider [phone] Allergies No known active allergies Medications cetirizine (ZyrTEC) 10 MG tabletIndications :Seasonal allergic rhinitis, unspecified trigger Take 1 tablet (10 mg) by mouth if needed each day for allergies. 90 tablet 3 023 Active Calcium Citrate-Vitamin D 315-5 MG-MCG tabletIndications :Osteoporosis without current pathological fracture, unspecified osteoporosis type Take 2 tablets by mouth 2 times daily. 180 tablet 2 024 Active tiZANidine (Zanaflex) 2 MG tabletIndications :Myalgia Take 1-2 tablets (2-4 mg) by mouth if needed at bedtime for muscle spasms. 30 tablet 024 Active Calcium Citrate + D3 Maximum tablet TAKE 2 TABLETS BY MOUTH TWICE DAILY 180 tablet 2 024 Active famotidine (Pepcid) 20 MG tablet TAKE 1 TABLET BY MOUTH TWICE DAILY IN THE MORNING AND IN THE EVENING NEEDED HEARTBURN OR INDIGESTION 60 tablet 3 025 Active atorvastatin (Lipitor) 20 MG tabletIndications :Hyperlipidemia, unspecified hyperlipidemia type TAKE 1 TABLET BY MOUTH AT BEDTIME (for cholesterol) 90 tablet 3 025 Active alendronate (Fosamax) 70 MG tabletIndications :Osteoporosis without current pathological fracture, unspecified osteoporosis type take 1 tablet once a week with 6 to 8 oz of water 30 min before first food of day. do not lie down for 30 minutes 12 tablet 3 025 Active fluticasone (Flonase) 50 MCG/ACT nasal spray INSTILL 2 SPRAYS IN EACH NOSTRIL ONCE DAILY NEEDED FOR ALLERGIES. Shake gently. Before first use, prime pump. After use, clean tip and replace cap 16 g 11 025 Active levothyroxine (Synthroid, Levoxyl) 137 MCG tabletIndications :Other specified hypothyroidism TAKE 1 TABLET BY MOUTH EVERY MORNING 90 tablet 3 025 Active levothyroxine (Synthroid, Levoxyl) 137 MCG tabletIndications :Other specified hypothyroidism Take 137 mcg by mouth in the morning. 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 -No red flag symptoms. Unable to fully visualize TM on exam -ED/urgent care precautions reviewed -Follow up with ENT if persistent Assessment & Plan (03/27/2024 9:40 PM EST): - Wooshing sound R ear since Apr 2023 occurring 2-3 times per day. TM previously appeared perforated one exam, however improved/resolved today. Sound has diminished/improved. - Follow up PRN Assessment & Plan (11/29/2023 6:58 PM EDT): - Wooshing sound R ear since Apr 2023 occurring 2-3 times per day. TM appears to be perforated on exam. No current pain. Advised no ear drops to right ear until further eval through ENT. - Previous referral placed to ENT, reports appt upcoming Assessment & Plan (08/22/2023 11:56 AM EDT): - Wooshing sound R ear since Apr 2023 occurring 2-3 times per day. TM appears to be perforated on exam. No current pain. Advised no ear drops to right ear until further eval through ENT. - Previous referral placed to ENT, reports appt upcoming Healthcare maintenance 07/30/2022 Overview (11/29/2023): Routine Health Maintenance Optometry: [facility] (Last appt jan 2023). [facility] October 2023. Dental: [facility] Dental BMD: osteoporosis September 2022 Last PE: 11/20/23 Routine Cancer Screening Breast CA: BI-RADs 1 on 09/29/23 Cervical CA: Pap NILM HPV Neg September 2020 Colon CA: Colonoscopy July 2023, repeat in 3 years Assessment & Plan (02/14/2023 6:32 PM EST): Flu vaccine administered today Assessment & Plan (11/14/2022 10:05 AM EDT): Routine Health Maintenance Optometry: Last appt Jan 2022 Dental: in process of establishing with new dental home BMD: osteoporosis September 2022 Routine Cancer Screening Breast CA: BI-RADs 09/26/22 Cervical CA: Pap NILM HPV Neg September 2020 Colon CA: Colonoscopy Apr 2018, plan for repeat in 5-[address] referral to hopefully get pt in for appt by Apr 2023 Assessment & Plan (07/30/2022 9:02 AM EDT): Routine Health Maintenance Optometry: Last appt Jan 2022 Dental: in process of establishing with new dental home BMD: osteopenia September 2020, repeat ordered 07/30/22 COVID vaccination: bivalent booster administered today Routine Cancer Screening Breast CA: BI-RADs 04 September 2020, repeat ordered Cervical CA: Pap NILM HPV Neg September 2020 Colon CA: Colonoscopy Apr 2018, plan for repeat in 5-10 years Right thyroid nodule 07/29/2022 Assessment & Plan (11/14/2022 9:47 AM EDT): -Thyroid ultrasound Feb 2021 with the following IMPRESSION: Upper normal-size very heterogeneous slightly hypervascular thyroid gland. One right nodule appears slightly decreased in size. There is no change in the other right nodule. September 2022: Repeat Thyroid ultrasound with the following impression: Subcentimeter TR 3 and TR 4 thyroid nodules as detailed above which do not meet criteria for follow-up given size. No further follow up needed at this time Assessment & Plan (07/30/2022 8:40 AM EDT): -Last available thyroid ultrasound Feb 2021 with the following IMPRESSION: Upper normal-size very heterogeneous slightly hypervascular thyroid gland. One right nodule appears slightly decreased in size. There is no change in the other right nodule. -Plan was for repeat thyroid u/s in Feb 2022, although pt was not in state. Repeat ordered 07/30/22 for follow up. Osteoporosis 06/01/2018 Assessment & Plan (11/29/2023 6:53 PM EDT): -DEXA scan 09/23/22: Osteoporosis based on the lowest T-score value of -3.0 in the femoral neck -Continues on Ca+Vit D3. -Continues Alendronate every thursday, no side effects -Encouraged lifestyle interventions such as routine physical activity and low- impact weight bearing exercises Assessment & Plan (11/14/2022 9:49 AM EDT): -DEXA scan 09/23/22: Osteoporosis based on the lowest T-score value of -3.0 in the femoral neck -Continues on Ca+Vit D3. -Continues Alendronate every thursday, no side effects -Encouraged lifestyle interventions such as routine physical activity and low- impact weight bearing exercises Assessment & Plan (07/30/2022 8:58 AM EDT): -DEXA scan September 2020: DIAGNOSIS: Osteopenia based on the lowest T-score value of -2.1 in the femoral neck. -Continues on Ca+Vit D3. -Continues Alendronate every thursday, no side effects -Repeat scan ordered 07/30/22 Acid reflux 07/08/2012 Assessment & Plan (11/29/2023 6:52 PM EDT): -Continues with famotidine 20mg BID PRN -Follow up with any persistence or worsening of symptoms Assessment & Plan (07/30/2022 8:47 AM EDT): -Trial of famotidine PRN -Follow up with any persistence or worsening of symptoms Hyperlipidemia 07/08/2012 Assessment & Plan (11/29/2023 6:59 PM EDT): -Continue atorvastatin 20mg nightly -Fasting lipid panel ordered Assessment & Plan (07/30/2022 9:00 AM EDT): -Continue atorvastatin 20mg nightly -Fasting lipid panel ordered Allergic rhinitis 12/09/2011 Assessment & Plan (11/29/2023 6:54 PM EDT): Cont cetirizine and flonase PRN Assessment & Plan (02/14/2023 6:31 PM EST): Cont cetirizine and flonase PRN Depressive disorder 12/09/2011 Hypothyroidism 12/09/2011 Assessment & Plan (08/01/2024 2:08 PM EDT): - Continues with levothyroxine 137mcg daily - Repeat TSH ordered Lab Results Component Value Date TSH 1.37 12/15/2023 Assessment & Plan (11/29/2023 6:53 PM EDT): - Continues with levothyroxine 137mcg daily - Repeat TSH ordered Lab Results Component Value Date TSH 1.56 08/05/2022 Assessment & Plan (05/17/2023 7:51 PM EST): Continues with levothyroxine 137mcg daily Lab Results Component Value Date TSH 1.56 08/05/2022 Assessment & Plan (07/30/2022 8:59 AM EDT): Continues with levothyroxine 137mcg daily Recheck TSH Osteoarthritis of both knees 12/09/2011 Assessment & Plan (08/07/2024 7:54 PM EDT): Hx of OA bilateral knees, with left knee increasingly bothersome 01/08/24: XR left knee - demonstrates hx of arthroplasty w/o evidence of complication. Discussed physical therapy/ortho referral. Declines at this time (08/05/24) Cont symptomatic management Assessment & Plan (11/29/2023 6:53 PM EDT): Hx of OA bilateral knees, with left knee increasingly bothersome XR ordered for further eval Cont symptomatic management Resolved Problems Problem Noted Date Diagnosed Date Resolved Date Periodontal disease 02/19/2023 08/22/19 Missing teeth, acquired 02/19/202308/04 Tipped teeth 02/19/2023 08/22/2023 Generalized gingival recession 02/19/2023 08/22/2023 Dental plaque 02/19/2023 08/22/2023 Impaired glucose tolerance 12/09/2011 1 04/08/2022 Encounters Date Type Department Care Team Description 09/26/2024 Refill [facility] [address], [place] [phone] Willow Diamond FNP Other specified hypothyroidism 08/05/2024 11:00 AM EDT Immunization [facility] [address] [place] [address] Yanet Jones LPN Encounter for immunization (Primary Dx) 08/01/2024 1:30 PM EDT Office Visit [facility] [address], [place] [phone] Willow Diamond, REGINA 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 (Primary Dx); Osteoporosis without current pathological fracture, unspecified osteoporosis type; Osteoarthritis of both knees, unspecified osteoarthritis type 08/01/2024 Travel 07/19/2024 Telephone [facility] [address] [place] [address] Willow Diamond FNP Chart Prep 07/14/2024 Telephone [facility] [address] [place] [address] Willow Diamond FNP Sofia recall 07/14/2024 Travel from Last 3 Months Immunizations Immunization Administration Dates Next Due Hep B, adult 08/05/2024, 4,02/01/2024,09/12,04/26/2003,03/23/2003 Influenza High-dose Quadriva lent Preservative Free 02/06/2023,12/31/2021,01/15/2021,02/27 Influenza injectable quadriv alent IIV4 with preservative 12/18/2017 Influenza injectable quadriv alent preservative free 01/10/2019,01/30/2017,04/16/2015 Influenza, High Dose Seasona l, Preservative Free 03/25/2024 Influenza, Split (incl. pushpa fied surface antigen) 12/09/2011 Influenza, seasonal, injecta ble, preservative free 05/09/2014 MMR 08/05/1999 Pfizer Covid-19 Vaccine 12+ 03/25/2024, Pfizer Covid-19 Vaccine 12+ Bivalent 07/29/2022 Pneumococcal Conjugate PCV 13 01/15/2021 Pneumococcal Polysaccharide PPSV23 01/31/2022 TD (adult), 2 Lf tetanus tox oid, preservative free, adsorbed 03/23/2003 Tdap 08/19/2016 Zoster, Recombinant 08/22/2021,06/10/2021 Zoster, live 09/26/2015 Family History Medical History Relation Name Comments Hypertension Brother 1 Hypertension Brother 2 Alzheimer's disease Mother Breast cancer Mother's Sister Asthma Sister Breast cancer Sister Relation Name Status Comments Brother 1 Brother 2 Alive Mother Mother's Sister Sister Social History Tobacco Use Types Packs/Day Years Used Date Smoking Tobacco: Never Smokeless Tobacco: Never Tobacco Cessation:Counseling Given: Not Answered Alcohol Use Standard Drinks/Week Comments Yes 0 (1 standard drink = 0.6 oz pur e alcohol) occasional Depression Answer Date Recorded Patient Health Questionnaire-9 Score 10 11/20/2023 Patient Health Questionnaire-9 Score 10 11/20/2023 Last PHQ-9: Questionnaire Data Not on file 0 11/20/2023 Housing Stability Answer Date Recorded What is your housing situation today? I have izabella bustamante 11/13/[address] you li ve. Do you have problems with any of the following? None of the above 11/13/2023 Food Insecurity Answer Date Recorded Within the past 12 months, y ou worried that your food would run out before you got money to buy more: Never True 11/13/2023 Within the past 12 months,th e food you bought just didn't last and you didn't have enough money to get more: Never True 12/2023 Transportation Answer Date Recorded In the past 12 months, has l ack of transportation kept you from medical appts, meetings, work or from getting things needed for daily living? No 11/13/2023 Utilities Answer Date Recorded In the past 12 months, has t he electric, gas, oil or water company threatened to shut off services in your home? No 11/13/2023 Depression Answer Date Recorded Patient Health Questionnaire-2 Score 4 11/20/2023 Internet Access Answer Date Recorded Internet Access Q1 Yes 12/07/2023 Internet Access Q2 Not on file 12/07/2023 Comments No Sex and Gender Information Value Date Recorded Sex Assigned at Female 02/03/2022 10:15 AM EDT Legal Sex Female 10:15 AM EDT Gender Identity Female 02/03/2022 10:15 AM EDT Sexual Orientation Straight 02/03/2022 10 :15 AM EDT Last Filed Vital Signs Vital Sign Reading Time Taken Comments Blood Pressure 122/73 08/01/2024 1:26 PM EDT Pulse 76 08/01/2024 1:26 PM EDT Temperature 36.7 C (98.1 F) 08/01/2024 1:26 PM EDT Respiratory Rate 19 08/01/2024 1:26 PM EDT Oxygen Saturation 98% 08/01/2024 1:26 PM EDT Inhaled Oxygen Concentration - - Weight 73.3 kg (161 lb 8 oz) 08/01/2024 1:26 PM EDT Height 153 cm (5' 0.24 ) 08/01/2024 1:26 PM EDT Body Mass Index 31.29 08/01/2024 1:26 PM EDT Plan of Treatment Health Maintenance Due Date Last Done Comments CT Colonography 1955 FIT DNA/Cologuard 1955 FOBT 1955 Sigmoidoscopy 1955 FIT 05/28/2023 05/28/2022 Dental Oral Exam 08/21/2023 02/19/2023, , 02/18/2018 Dental Prophylaxis 08/21/2023 02/19/2023, 0 07/04/2021, 03/16/2018 Dental X-Ray: Bitewings 02/21/2024 02/20/20 23, 07/04/2021, 02/18/2018 Depression Monitoring 05/22/2024 11/20/2023, 024 COVID-19 Vaccine ( season) 2024 03/25/2024, 02/20/2023, 07/29/2022, Additional history exists Mammogram 09/28/2024 09/29/2023, 09/05, 09/19/2020, Additional history exists SDOH Screening 11/12/2024 11/13/2023 Diabetes: Hemoglobin A1C 12/14/2024 024, 08/05/2022, 07/30/2020, Additional history exists Alcohol/Substance Use Screening 08/01/2025 08/01/2024 Tobacco Screening 08/01/2025 08/01/2024 Dental X-Ray: Full Mouth 02/20/2026 02/19/2023, 02/04 Colonoscopy 07/12/2026 07/13/2023 Colorectal Cancer Screening 07/12/2026 DTaP/Tdap/Td Vaccines (2 - Td or Tdap) 08/19/2026 08/19/2016, 03/23/2003 RSV Patients and Patients Aged 60 years or older (1 - 1-dose 75+ series) 2028 Zoster Vaccines Completed 08/22/2021, 03/0 10/2021, 09/26/2015 Pneumococcal Vaccine: 50+ Years Completed 01/31/2022, 01/15/2021 Hepatitis C Screening Completed 01/01/2024, 023 Influenza Vaccine Completed 03/25/2024, , 12/31/2021, Additional history exists Hepatitis B Vaccines Completed 08/05/2024, 03/07/2024, 02/01/2024, Additional history exists HIB Vaccines Aged Out No longer eligi ble based on patient's age to complete this topic HPV Vaccines Aged Out No longer eligi ble based on patient's age to complete this topic Hepatitis A Vaccines Aged Out No long er eligible based on patient's age to complete this topic IPV Vaccines Aged Out No longer eligi ble based on patient's age to complete this topic Meningococcal B Vaccine Aged Out No l onger eligible based on patient's age to complete this topic Meningococcal Vaccine Aged Out No stephanie esthela eligible based on patient's age to complete this topic RSV under 20 months Aged Out No longe r eligible based on patient's age to complete this topic Rotavirus Vaccines Aged Out No longer eligible based on patient's age to complete this topic Procedures Procedure Name Priority Date/Time Associated Diagnosis Comments HEPATITIS C AB W/REFL TO HCV RNA, QN, PCR Routine 01/01/2024 11:10 AM EDT Thrombocytopenia (CMS/HCC) Elevated liver function tests HEMOGLOBIN A1C Routine 12/15/2023 9:30 AM EDT Healthcare maintenance BI MAMMOGRAM SCREENING TOMOSYNTHESIS BILATERAL Routine 09/29/2023 9:53 AM EDT HM COLONOSCOPY Routine 07/13/2023 Healthcare maintenance PROPHYLAXIS - ADULT Routine 02/19/2023 1 :00 PM EST Periodontal disease Dental plaque INTRAORAL - COMPLETE SERIES OF RADIOGRAPHIC IMAGES Routine 02/19/2023 1:00 PM EST Periodontal disease Missing teeth, acquired Tipped teeth Generalized gingival recession Dental plaque PERIODIC ORAL EVALUATION - ESTABLISHED PATIENT Routine 02/19/2023 1:00 PM EST FECAL IMMUNOCHEMICAL Routine 05/28/2022 from Last 3 Months or Most Recently Relevant to Health Maintenance Results * Hepatitis C Antibody with Reflex to HCV, RNA, Quantitative, Real-Time PCR (01/01/2024 11:10 AM EDT) Hepatitis C Antibody Nonreactive Nonreactive [facility] Comment:Antibodies to HCV no t detected; does not exclude early acuteHCV infection. Blood Venous blood specimen / Unknown 01/01/2024 11:10 AM EDT 01/01/2024 1:19 PM EDT Willow Diamond BLOCKERS SKIVER LAB BLOOD ORDERABLES Final Res ult Performing Organization Address [facility]/ZIP Co de Phone Number [facility] [address] [place] [address] [phone] * Hemoglobin A1c (12/15/2023 9:30 AM EDT) Hemoglobin A1c 6.0 <6.0 % [facility] Comment:Hemoglobin A1C Refer ence Range Adults: 4.8 - 6.0 % Non diabetic: < 6.0 % Goal: < 7.0 %Additional Action Suggested: > 8.0 %Note: Hemoglobin A1c results are invalid for patients with abnormal amounts of HbF. Blood transfusions may impact the HbA1c concentration in the patient sample. Estimated Average Glucose 126 mg/dL [facility] Comment:eAG = Estimated ave rage glucose which is %A1C expressed asaverage glucose, using the formula of the [id number] Glucose study (ADAG), Diabetes Care, Vol.31,#8,Nov. 2007 Blood Venous blood specimen / Unknown 12/15/2023 9:30 AM EDT 12/15/2023 11:03 AM EDT Willow Diamond BLOCKERS SKIVER LAB BLOOD ORDERABLES Final Res ult Performing Organization Address [facility]/ZIP Co de Phone Number [facility] [address] [place] [phone] * BI Mammogram Screening Tomosynthesis Bilateral (09/29/2023 9:53 AM EDT) Anatomical Region Laterality Modality Breast Bilateral Mammography 09/29/2023 9:53 AM EDT Narrative 10/19/2023 3:52 PM EDT [address] [place] [address] Mammography Report Signed Patient: Samanta Ruano MR#: [id number] : 1955 Acct:[id number] Age/Sex: 67 / F ADM Date: 09/29/23 Loc: HO.MAMMO Attending Dr: Willow Diamond BLOCKERS SKIVER Ordering Physician: Willow Diamond Results: 1Negat janis Date of Service: 09/29/23 Follow Up: 1 Year From Orig inal Mammogram Procedure(s): MM tomosynthesis screening BI Accession Number(s): [id number] cc: Willow Diamond BLOCKERS SKIVER EXAMINATION: MM SCREENING DIGITAL BREAST TOMOSYNTHESIS, BILATERAL CLINICAL INFORMATION: Screening. Asymptomatic. COMPARISON: Mammography: This study is compared with prior exams dating back to 2018. TECHNIQUE: Digital breast tomosynthesis is performed in both the craniocaudal and mediolateral oblique views along with computer-aided detection (CAD). Synthesized 2D images are generated from the tomosynthesis. FINDINGS: The breasts are almost entirely fatty (ACR BI-RADS breast composition Category a). There are no significant masses, abnormal calcifications, or other abnormalities. MM/MM tomosynthesis screening BI IMPRESSION: No mammographic evidence of malignancy. ASSESSMENT: BI-RADS BI-RADS 1 - Negative RECOMMENDATION: Routine annual mammography screening. 1 year F/U This examination should not preclude the clinical evaluation of a suspicious palpable abnormality. This patient's information was entered into a reminder system with a target due date for their next mammogram. Dictated By: Vilma Fox MD Signed By: <Electronically signed by Vilma Fox MD in OV> 10/19/23 1549 DD/ 0953 TD/TT: Global Clinical Leader: Procedure Note Donotuseinterpreter, Image - 10/19/[address] [place] [address] Mammography Report Signed Patient: Quinn RuanoR#: [id number] : 1955cct:[id number] Age/Sex: 67 / FADM Date: 09/29/23 Loc: HO.MAMMO Attending Dr: Willow TAPIA Ordering Physician: Willow DiamondPResults: 1Negat janis Date of Service: 09/29/23Follow Up: 1 Year From Orig inal Mammogram Procedure(s): MM tomosynthesis screening BI Accession Number(s): [id number] cc: Willow Diamond EXAMINATION: MM SCREENING DIGITAL BREAST TOMOSYNTHESIS, BILATERAL CLINICAL INFORMATION: Screening. Asymptomatic. COMPARISON: Mammography: This study is compared with prior exams dating back to 2018. TECHNIQUE: Digital breast tomosynthesis is performed in both the craniocaudal and mediolateral oblique views along with computer-aided detection (CAD). Synthesized 2D images are generated from the tomosynthesis. FINDINGS: The breasts are almost entirely fatty (ACR BI-RADS breast composition Category a). There are no significant masses, abnormal calcifications, or other abnormalities. MM/MM tomosynthesis screening BI IMPRESSION: No mammographic evidence of malignancy. ASSESSMENT: BI-RADS BI-RADS 1 - Negative RECOMMENDATION: Routine annual mammography screening. 1 year F/U This examination should not preclude the clinical evaluation of a suspicious palpable abnormality. This patient's information was entered into a reminder system with a target due date for their next mammogram. Dictated By: Vilma Fox MD Signed By: <Electronically signed by Vilma Fox MD in OV> 10/19/23 1549 DD/ 0953 TD/TT: Global Clinical Leader: Willow TAPIA IMG BI PROCEDURES Final Result * (ABNORMAL) Colonoscopy (07/13/2023) Colonoscopy Abnormal(A ) Normal 07/13/2023 Narrative Willow Diamond FNP - 07/13/2023 [facility] - Dr. Hackett. Repeat 3 years. Historical Provider HEALTH MAINTENANCE Final Result * Fecal immunochemical (05/28/2022) Fecal Immunoassay Test (External) Neg Stool Rectal contents / Unknown us Historical Provider LAB BODY FLUIDS AND STOOL S ORDERABLES Final Result from Last 3 Months or Most Recently Relevant to Health Maintenance Insurance [facility] [employer] (HMO D-SNP) [place] [id number] [place] ST[place] AD[place] DENTAL [facility] Advance Directives Documents on File Type Date Recorded Patient Rheumatologist Expl anation Advance Directives and Livin g Will 03/28/2024 10:55 AM HCP Care Teams Hardboard Supervisor Relationship Specialty Start Date End Date Willow Diamond FNP [address] [place] [phone] PCP - General Family Medicine 06/11/22
== END 2024-10-03 08:50 | disposition home or self-care (01) ==
LOC: HO.MAMMO 08:49
PROVIDERS: PCP Registered Nurse; Visit Provider Registered Nurse
DX: Z12.31 Encounter for screening mammogram for malignant neoplasm of breast (principal)
CPT/HCPCS: 77063; 77067

== ENCOUNTER → 2024-10-03 09:30 | Outpatient (BNV) | payer OTHER, SELFPAY | PROVIDERS: PCP Registered Nurse; Visit Provider Internal Medicine | DX: Z12.31 Encounter for screening mammogram for malignant neoplasm of breast (principal) | CPT/HCPCS: 77063; 77067 ==

== ENCOUNTER 2025-01-06 14:33 | Outpatient (REF) | payer OTHER, SELFPAY ==
--- OUTSIDE RECORDS SUMMARY | 2025-01-06 10:15 | XMS_ITS | Encounter Summary ---
Author Organization [employer] Address [address] [facility] 7t [place] [address] Care Team Providers Care Software Test Analyst Name Role Phone Willow Diamond Primary Care Provider [phone] Encounter Details Date Type Department Care Team ([facility] Contact Info) Description 01/06/2025 10:15 AM EDT Office Visit [facility] [address] [place], [place] [phone] Willow Diamond FNP [address] [place], [place] [phone] Urinary frequency (Primary Dx); Healthcare maintenance; Encounter for immunization; Encounter for vaccination Social History Tobacco Use Types Packs/Day Years Used Date Smoking Tobacco: Never Smokeless Tobacco: Never Alcohol Use Standard Drinks/Week Comments Yes 0 (1 standard drink = 0.6 oz pur e alcohol) occasional Depression Answer Date Recorded Patient Health Questionnaire-9 Score 12 01/06/2025 Patient Health Questionnaire-9 Score 12 01/06/2025 Last PHQ-9: Questionnaire Data Not on file 1 Housing Stability Answer Date Recorded What is your housing situation today? I have izabellafrancisco bustamante 12/29/[address] you li ve. Do you have problems with any of the following? None of the above 12/29/2024 Food Insecurity Answer Date Recorded Within the past 12 months, y ou worried that your food would run out before you got money to buy more: Never True 12/29/2024 Within the past 12 months,th e food you bought just didn't last and you didn't have enough money to get more: Never True Transportation Answer Date Recorded In the past 12 months, has l ack of transportation kept you from medical appts, meetings, work or from getting things needed for daily living? No 12/29/2024 Utilities Answer Date Recorded In the past 12 months, has t he electric, gas, oil or water company threatened to shut off services in your home? No 12/29/2024 Depression Answer Date Recorded Patient Health Questionnaire-2 Score 3 01/06/2025 Internet Access Answer Date Recorded Internet Access Q1 Yes 12/29/2024 Internet Access Q2 Not on file 12/29/2024 Comments No Sex and Gender Information Value Date Recorded Sex Assigned at Female 02/03/2022 10:15 AM EDT Legal Sex Female 10:15 AM EDT Gender Identity Female 02/03/2022 10:15 AM EDT Sexual Orientation Straight 02/03/2022 10 :15 AM EDT documented as of this encounter Last Filed Vital Signs Vital Sign Reading Time Taken Comments Blood Pressure 120/64 01/06/2025 10:11 AM EDT Pulse 80 01/06/2025 10:11 AM EDT Temperature 36.7 C (98.1 F) 01/06/2025 10:11 AM EDT Respiratory Rate 18 01/06/2025 10:11 AM EDT Oxygen Saturation 98% 01/06/2025 10:11 AM EDT Inhaled Oxygen Concentration - - Weight 74.6 kg (164 lb 6.4 oz) 01/06/2025 10:11 AM EDT Height 153 cm (5' 0.24 ) 01/06/2025 10:11 AM EDT Body Mass Index 31.86 01/06/2025 10:11 AM EDT documented in this encounter Functional Status * Over the past 2 weeks, how often have you been bothered by any of the following problems? Question Answer Date of Assessment Author Patient Health Questionnaire -2 Score 3 01/06/2025 10:11 AM EDT Theodora Patel MA * Little interest or pleasure in doing things Answer Date of Assessment Author Several days 01/06/2025 10:11 AM EDT Theodora Patel MA * Feeling down, depressed, or hopeless Answer Date of Assessment Author More than half the days 01/06/2025 10:11 AM EDT Theodora Patel MA * Trouble falling or staying asleep, or sleeping too much Answer Date of Assessment Author Nearly every day 01/06/2025 10:11 AM EDTheodora Huitron MA * Feeling tired or having little energy Answer Date of Assessment Author Several days 01/06/2025 10:11 AM Theodora Bower MA * Poor appetite or overeating Answer Date of Assessment Author Several days 01/06/2025 10:11 AM Theodora Bower MA * Feeling bad about yourself - or that you are a failure or have let yourself or your family down Answer Date of Assessment Author More than half the days 01/06/2025 10:11 AM EDTheodora Huitron MA * Trouble concentrating on things, such as reading the newspaper or watching television Answer Date of Assessment Author Several days 01/06/2025 10:11 AM CHARLIET Theodora Patel MA * Moving or speaking so slowly that other people could have noticed? Or the opposite - being so fidgety or restless that you have been moving around a lot more than usual. Answer Date of Assessment Author Not at all 01/06/2025 10:11 AM Theodora Bower MA * Thoughts that you would be better off or hurting yourself in some way Answer Date of Assessment Author Several days 01/06/2025 10:11 AM Theodora Bower MA * Patient Health Questionnaire-9 Score Answer Date of Assessment Author 12 01/06/2025 10:11 AM Theodora Bower MA * How difficult have these problems made it for you to do your work, take care of things at home, or get along with other people? Answer Date of Assessment Author Somewhat difficult 01/06/2025 10:11 AM EDTheodora Wagner MA documented as of this encounter Plan of Treatment Scheduled Orders Name Type Priority Associated Diagnoses Orde r Schedule Lipid Panel, Standard Lab Routine Healthcare maintenance Expected: 01/06/2025 (Approximate), Expires: 01/06/2026 Hemoglobin A1c Lab Routine Healthcare maintenance Expected: 01/06/2025 (Approximate), Expires: 01/06/2026 TSH with Reflex to Free T4 Lab Routine Healthcare maintenance Expected: 01/06/2025 (Approximate), Expires: 01/06/2026 Comprehensive Metabolic Panel Lab Routine Healthcare maintenance Expected: 01/06/2025 (Approximate), Expires: 01/06/2026 CBC auto differential Lab Routine Healthcare maintenance Expected: 01/06/2025, Expires: 01/06/2026 Hepatitis C Viral RNA, Quantitative, Real-Time PCR Lab Routine Healthcare maintenance Expected: 01/06/2025 (Approximate), Expires: 01/06/2026 RPR (Monitor) with Reflex to Titer Lab Routine Healthcare maintenance Expected: 01/06/2025 (Approximate), Expires: 01/06/2026 HIV-1/2 Antigen and Antibodies, Fourth Generation, with Reflexes Lab Routine Healthcare maintenance Expected: 01/06/2025 (Approximate), Expires: 01/06/2026 Chlamydia/Trichomonas/Ne isseria gonorrhoeae, PCR, Urine Lab Routine Healthcare maintenance Expected: 01/06/2025 (Approximate), Expires: 01/06/2026 Culture, Urine, Routine Microbiology Routine Urinary frequency Expected: 01/06/2025 (Approximate), Expires: 01/06/2026 documented as of this encounter Procedures Procedure Name Priority Date/Time Associated Diagnosis Comments POCT URINALYSIS DIPSTICK Routine 01/06/2025 11:04 AM EDT Urinary frequency documented in this encounter Results * (ABNORMAL) POCT Urinalysis (01/06/2025 11:04 AM EDT) Color, UA Yellow Clarity, UA Clear Glucose, UA Negative Bilirubin, UA Negative Ketones, UA Negative Spec Grav, UA 1.020 Blood, UA Positive(A) Negative, None Detected Comment:moderatw pH, UA 7.0 Protein, UA Trace Urobilinogen, UA 0.2 Leukocytes, UA Trace Negative, Rare, Trace Comment:small Nitrite, UA Negative Negative, None Detected Appearance, UA clear QC Media Lot # [id number] Lot# Expiration Date 3138,026 Urine 01/06/2025 11:0 4 AM EDT us Willow Diamond TEASELER POINT OF CARE TEST ENTER/EDIT ORDERABLES Final Result documented in this encounter Visit Diagnoses Diagnosis Urinary frequency- Primary Healthcare maintenance Encounter for immunization Encounter for vaccination documented in this encounter Additional Health Concerns Assessment Noted Time PHQ-9 Depression Total Score: 12 025 10:11 AM EDT documented as of this encounter Care Teams Software Test Analyst Relationship Specialty Start Date End Date Willow Diamond FNP [address] [place] [address] PCP - General Family Medicine 06/11/22 documented as of this encounter
--- OUTSIDE RECORDS SUMMARY | 2025-01-06 14:35 | XMS_ITS | Clinical Summary ---
Author Organization [employer] Address [address] [facility] 7t [place] [address] Care Team Providers Care Sheet Sewer Name Role Phone Willow Diamond REGINA Primary Care Provider [phone] Allergies No known active allergies Medications cetirizine (ZyrTEC) 10 MG tabletIndications: Seasonal allergic rhinitis, unspecified trigger Take 1 tablet (10 mg) by mouth if needed each day for allergies. 90 tablet 3 02/07/20 23 Active tiZANidine (Zanaflex) 2 MG tabletIndications: Myalgia Take 1-2 tablets (2-4 mg) by mouth if needed at bedtime for muscle spasms. 30 tablet 08/21/19 24 Active Calcium Citrate + D3 Maximum tablet TAKE 2 TABLETS BY MOUTH TWICE DAILY 180 tablet 2 09/24/19 24 Active famotidine (Pepcid) 20 MG tablet TAKE 1 TABLET BY MOUTH TWICE DAILY IN THE MORNING AND IN THE EVENING NEEDED HEARTBURN OR INDIGESTION 60 tablet 3 05/18/19 25 Active atorvastatin (Lipitor) 20 MG tabletIndications: Hyperlipidemia, unspecified hyperlipidemia type TAKE 1 TABLET BY MOUTH AT BEDTIME (for cholesterol) 90 tablet 3 05/17/19 25 Active alendronate (Fosamax) 70 MG tabletIndications: Osteoporosis without current pathological fracture, unspecified osteoporosis type take 1 tablet once a week with 6 to 8 oz of water 30 min before first food of day. do not lie down for 30 minutes 12 tablet 3 08/02/19 25 Active fluticasone (Flonase) 50 MCG/ACT nasal spray INSTILL 2 SPRAYS IN EACH NOSTRIL ONCE DAILY NEEDED FOR ALLERGIES. Shake gently. Before first use, prime pump. After use, clean tip and replace cap 16 g 11 08/02/19 25 Active levothyroxine (Synthroid, Levoxyl) 137 MCG tabletIndications: Other specified hypothyroidism TAKE 1 TABLET BY MOUTH EVERY MORNING 90 tablet 3 09/28/19 25 Active Calcium Citrate-Vitamin D 315-5 MG-MCG tabletIndications: Osteoporosis without current pathological fracture, unspecified osteoporosis type TAKE 2 TABLETS BY MOUTH TWICE DAILY 180 tablet 2 11/19/19 25 Active nitrofurantoin, macrocrystal-monoh ydrate, (Macrobid) 100 MG capsule Take 1 capsule (100 mg) by mouth 2 times daily for 5 days. 10 capsule 01/07/20 25 025 Active Active Problems Problem Noted Date Diagnosed Date [...] reports appt upcoming Healthcare maintenance 07/30/2022 Overview (01/06/2025): Routine Health Maintenance Optometry: [facility] (Last appt jan 2023). [facility] October 2023. Dental: [facility] Dental BMD: osteoporosis September 2022 Last PE: 11/20/23 Routine Cancer Screening Breast CA: BI-RADs 1 on 10/03/24 Cervical CA: Pap NILM HPV Neg September [...] Encounters Date Type Department Care Team Description 01/06/2025 10:15 AM EDT Office Visit [facility] [address] [place] [address] Willow Diamond FNP Urinary frequency (Primary Dx); Healthcare maintenance; Encounter for immunization; Encounter for vaccination 01/06/2025 Results Follow-Up [facility] [address] [place] [address] Willow Diamond FNP POCT Urinalysis 01/06/2025 Travel 01/05/2025 Telephone [facility] [address] [place] [address] Willow Diamond FNP Chart Prep 12/29/2024 Patient Outreach [facility] [address] [place] [phone] Willow Diamond FNP Pre-visit Planning (SDOH screening negative and Tobacco screening negative) 11/16/2024 Refill [facility] [address] [place] [address] Willow Diamond FNP Osteoporosis without current pathological fracture, unspecified osteoporosis type from Last 3 Months Immunizations Immunization Administration Dates Next Due Hep B, adult 08/05/2024, 4,02/01/2024,09/12,04/26/2003,03/23/2003 Influenza High-dose Quadriva lent Preservative Free 02/06/2023,12/31/2021,01/15/2021,02/27 Influenza injectable quadriv alent IIV4 with preservative 12/18/2017 Influenza injectable quadriv alent preservative free 01/10/2019,01/30/2017,04/16/2015 Influenza, High Dose Seasona l, Preservative Free 01/06/2025,03/25/2024 Influenza, Split (incl. pushpa fied surface antigen) 12/09/2011 Influenza, seasonal, injecta ble, preservative free 05/09/2014 MMR 08/05/1999 Pfizer Covid-19 Vaccine 12+ 01/06/2025,,02/20/2023 Pfizer Covid-19 Vaccine 12+ Bivalent 07/29/2022 Pneumococcal [...] housing situation today? I have izabella bustamante 12/29/[address] you [...] Mass Index 31.86 01/06/2025 10:11 AM EDT Plan of Treatment Health Maintenance Due Date Last Done Comments CT Colonography 1955 FIT DNA/Cologuard 1955 FOBT 1955 Sigmoidoscopy 1955 FIT 05/28/2023 05/28/2022 Dental Oral Exam 08/21/2023 02/19/2023, , 02/18/2018 Dental Prophylaxis 08/21/2023 02/19/2023, 0 07/04/2021, 03/16/2018 Dental X-Ray: Bitewings 02/21/2024 02/20/20 23, 07/04/2021, 02/18/2018 Depression Monitoring 07/07/2025 01/06/2025, 025 Alcohol/Substance Use Screening 08/01/2025 08/01/2024 Tobacco Screening 08/01/2025 08/01/2024 Mammogram 10/03/2025 10/03/2024, 09/05, 09/23/2022, Additional history exists SDOH Screening 12/29/2025 12/29/2024 Dental X-Ray: Full Mouth 02/20/2026 02/19/2023, 02/04 Colonoscopy 07/12/2026 07/13/2023 Colorectal Cancer Screening 07/12/2026 DTaP/Tdap/Td Vaccines (2 - Td or Tdap) 08/19/2026 08/19/2016, 03/23/2003 RSV Patients and Patients Aged 60 years or older (1 - 1-dose 75+ series) 2028 Zoster Vaccines Completed 08/22/2021, 03/10/2021, 09/26/2015 Pneumococcal Vaccine: 50+ Years Completed 01/31/2022, 01/15/2021 Hepatitis C Screening Completed 01/01/2024, 023 Hepatitis B Vaccines Completed 08/05/2024, 03/07/2024, 02/01/2024, Additional history exists COVID-19 Vaccine Completed 01/06/2025, , 02/20/2023, Additional history exists Influenza Vaccine Completed 01/06/2025, , 02/06/2023, Additional history exists HIB Vaccines Aged Out [...] Routine 01/06/2025 11:04 AM EDT Urinary frequency BI MAMMOGRAM SCREENING TOMOSYNTHESIS BILATERAL Routine 10/03/2024 8:55 AM EDT HEPATITIS C AB W/REFL TO HCV RNA, QN, PCR Routine 01/01/2024 11:10 AM EDT Thrombocytopenia (CMS/HCC) Elevated liver function tests HM COLONOSCOPY Routine 07/13/2023 Healthcare maintenance PROPHYLAXIS [...] Recently Relevant to Health Maintenance Results * (ABNORMAL) POCT Urinalysis (01/06/2025 11:04 [...] Media Lot # [id number] Lot# Expiration Date [id number] Urine 01/06/2025 11:0 4 AM EDT Willow Diamond PEDIATRIC GENETICIST POINT OF CARE TEST ENTER/EDIT ORDERABLES Final Result * BI Mammogram Screening Tomosynthesis Bilateral (10/03/2024 8:55 AM EDT) Anatomical Region Laterality Modality Breast Bilateral Mammography 10/03/2024 8:55 AM EDT Narrative 10/16/2024 1:26 PM EDT [address] [place] [address] Mammography Report Signed Patient: Samanta Ruano MR#: [id number] : 1955 Acct:[id number] Age/Sex: 69 / F ADM Date: 10/03/24 Loc: HO.MAMMO Attending Dr: Willow TAPIA Ordering Physician: Willow Diamond Results: 1Negat janis Date of Service: 10/03/24 Follow Up: 1 Year From [facility] Mammogram Procedure(s): MM tomosynthesis screening BI Accession Number(s): [id number] cc: Willow Diamond EXAMINATION: MM SCREENING DIGITAL BREAST TOMOSYNTHESIS, BILATERAL CLINICAL INFORMATION: Screening. Asymptomatic. COMPARISON: Mammography: Comparison is made with available priors TECHNIQUE: Digital breast mammography with tomosynthesis is performed in both the craniocaudal and mediolateral oblique views along with computer-aided detection (CAD). FINDINGS: There are scattered areas of fibroglandular density (ACR BI-RADS breast composition Category b). There are no significant masses, abnormal calcifications, [...] target due date for their next mammogram. Electronically signed by: Ivy Smith DO 10/16/2024 01:24 PM EDT RP Dictated By: Ivy Smith DO Signed By: <Electronically signed by Ivy Smith DO in OV> 10/16/24 1324 DD/ 0855 TD/TT: 10/03/24 0920 [place] Worker: Procedure Note Donotuseinterpreter, Image - [facility] [address] [place], [place] [address] Mammography Report Signed Patient: Carrie Ruano#: [id number] : 4Acct:[id number] Age/Sex: 69 / FADM Date: 10/03/24 Loc: HO.MAMMO Attending Dr: Willow Diamond PEDIATRIC GENETICIST Ordering Physician: Willow DiamondPResults: 1Negat janis Date of Service: 10/03/24Follow Up: 1 Year From Orig ina Mammogram Procedure(s): MM tomosynthesis screening BI Accession Number(s): [id number] cc: Willow Diamond PEDIATRIC GENETICIST EXAMINATION: MM SCREENING DIGITAL BREAST TOMOSYNTHESIS, BILATERAL CLINICAL INFORMATION: Screening. Asymptomatic. COMPARISON: Mammography: Comparison is made with available priors TECHNIQUE: Digital breast mammography with tomosynthesis is performed in both the craniocaudal and mediolateral oblique views along with computer-aided detection (CAD). FINDINGS: There are scattered areas of fibroglandular density (ACR BI-RADS breast composition Category b). There are no significant masses, abnormal calcifications, [...] target due date for their next mammogram. Electronically signed by: Ivy Smith DO 10/16/2024 01:24 PM EDT RP Dictated By: Ivy Smith DO Signed By: <Electronically signed by Ivy Smith DO in OV> 10/16/24 1324 DD/ 0855 TD/TT: 10/03/24 0920 [place] Worker: Willow TAPIA IMG BI PROCEDURES Final Result * Hepatitis C Antibody with Reflex to HCV, RNA, Quantitative, Real-Time PCR (01/01/2024 11:10 AM EDT) Hepatitis C Antibody Nonreactive Nonreactive [facility] Comment:Antibodies to HCV no t detected; does not exclude early acuteHCV infection. Blood Venous blood specimen / Unknown 01/01/2024 11:10 AM EDT 01/01/2024 1:19 PM EDT Willow [facility] BLOOD ORDERABLES Final Res ult [facility] [address] [place] [phone] * (ABNORMAL) Colonoscopy (07/13/2023) Colonoscopy Abnormal(A ) Normal 07/13/2023 Willow Joshua FNP - 07/13/2023 [facility] - Dr. Hackett. Repeat 3 years. Historical Provider HEALTH MAINTENANCE Final Result * Fecal immunochemical (05/28/2022) Fecal Immunoassay Test (External) Neg Stool Rectal contents / Unknown Historical Provider LAB BODY FLUIDS AND STOOL S ORDERABLES Final Result from Last 3 Months or Most Recently Relevant to Health Maintenance Insurance [facility] LONG TERM OPTIONS (HMO D-SNP) [place] STAND ADULT DENTAL [facility] Advance Directives Documents on File Type Date Recorded Patient It Manager Expl anation Advance Directives and Livin g Will 03/28/2024 10:55 AM HCP Care Teams Sheet Sewer Relationship Specialty Start Date End Date Willow Diamond FNP [address] [place] [phone] PCP - General Family Medicine 06/11/22
--- OUTSIDE RECORDS SUMMARY | 2025-01-06 14:35 | XMS_ITS | Encounter Summary ---
Author Organization [employer] Address [address] [facility] 7t [place] [address] Care Team Providers Care Snowboard Instructor Name Role Phone Willow Diamond REGINA Primary Care Provider [phone] Encounter Details Date Type Department Care Team (Latest Contact Info) Description 01/06/2025 Travel Social History Tobacco Use Types Packs/Day Years [...] AM EDT documented as of this encounter Functional Status * Over the [...] Author Nearly every day 01/06/2025 10:11 AM EDT Theodora Patel MA * Feeling tired or having little energy Answer Date of Assessment Author Several days 01/06/2025 10:11 AM EDT Theodora Patel MA * Poor appetite or overeating Answer Date of Assessment Author Several days 01/06/2025 10:11 AM EDT Theodora Patel MA * Feeling bad about yourself - or that you are a failure or have let yourself or your family down Answer Date of Assessment Author More than half the days 01/06/2025 10:11 AM EDT Theodora Patel MA * Trouble concentrating on things, such as reading the newspaper or watching television Answer Date of Assessment Author Several days 01/06/2025 10:11 AM EDT Theodora Patel MA * Moving or speaking so slowly that other people could have noticed? Or the opposite - being so fidgety or restless that you have been moving around a lot more than usual. Answer Date of Assessment Author Not at all 01/06/2025 10:11 AM EDTheodora Huitron MA * Thoughts that you would be better off or hurting yourself in some way Answer Date of Assessment Author Several days 01/06/2025 10:11 AM EDT Theodora Patel MA * Patient Health Questionnaire-9 Score Answer Date of Assessment Author 12 01/06/2025 10:11 AM EDT Theodora Patel MA * How difficult have these problems made it for you to do your work, take care of things at home, or get along with other people? Answer Date of Assessment Author Somewhat difficult 01/06/2025 10:11 AM EDT Theodora Torres MA documented as of this encounter Plan of Treatment Not on file documented as of this encounter Visit Diagnoses Not on filedocumented in this encounter Additional Health Concerns Assessment Noted Time PHQ-9 Depression Total Score: 12 025 10:11 AM EDT documented as of this encounter Care Teams Snowboard Instructor Relationship Specialty Start Date End Date Willow Diamond FNP [address] [place] [phone] PCP - General Family Medicine 06/11/22 documented as of this encounter
--- OUTSIDE RECORDS SUMMARY | 2025-01-06 14:35 | XMS_ITS | Encounter Summary ---
Author Organization [employer] Address [address] [facility] [address] [place] [address] Care Team Providers Care Security Associate Name Role Phone Willow Diamond CLAY TRANSPORTER Primary Care Provider [phone] Encounter Details Date Type Department Care Team ([facility] st Contact Info) Description 12/15/2023 Orders Only [facility] [address] [place], [place] [phone] Willow Diamond FNP [address] [place], [place] [phone] Thrombocytopenia (CMS/HCC) (Primary Dx); Elevated liver function tests Social History Tobacco Use Types Packs/Day Years [...] AM EDT documented as of this encounter Plan of Treatment Not on file documented as of this encounter Procedures Procedure Name Priority Date/Time Associated Diagnosis Comments LIVER FIBROSIS, FIBROTEST ACTITEST PANEL Routine 01/01/2024 11:10 AM EDT Thrombocytopenia (CMS/HCC) Elevated liver function tests CBC WITH AUTO DIFFERENTIAL Routine 01/01/2024 11:10 AM EDT Thrombocytopenia (CMS/HCC) Elevated liver function tests HEPATITIS C AB W/REFL TO HCV RNA, QN, PCR Routine 01/01/2024 11:10 AM EDT Thrombocytopenia (CMS/HCC) Elevated liver function tests HEPATITIS B SURFACE ANTIGEN, EIA Routine 01/01/2024 11:10 AM EDT Thrombocytopenia (CMS/HCC) Elevated liver function tests HEPATITIS B CORE AB TOTAL Routine 01/01/2024 11:10 AM EDT Thrombocytopenia (CMS/HCC) Elevated liver function tests HEPATITIS B SURFACE ANTIBODY, QUALITATIVE Routine 01/01/2024 11:10 AM EDT Thrombocytopenia (CMS/HCC) Elevated liver function tests HEPATIC FUNCTION PANEL Routine 01/01/2024 11:10 AM EDT Thrombocytopenia (CMS/HCC) Elevated liver function tests documented in this encounter Results * Hepatitis B surface antigen, EIA (01/01/2024 11:10 AM EDT) Hepatitis B Surface Ag Negative Negative [facility] Blood Venous blood specimen / Unknown 01/01/2024 11:10 AM EDT 01/01/2024 1:19 PM EDT us Willow Diamond CLAY TRANSPORTER LAB BLOOD ORDERABLES Final Res ult Performing Organization Address [facility] Co de Phone Number [facility] [address] [place] [phone] * Hepatitis B Surface Antibody, Qualitative (01/01/2024 11:10 AM EDT) ~Hepatitis B Surface Antibody NONREACTIVE Nonreactive [facility] Comment:Nonreactive: < 8.00 mIU/mL Blood Venous blood specimen / Unknown 01/01/2024 11:10 AM EDT 01/01/2024 1:19 PM EDT Willow Diamond CLAY TRANSPORTER LAB BLOOD ORDERABLES Final Res ult Performing Organization Address [facility] de Phone Number [facility] [address] [place] [phone] * Hepatitis B Core Antibody, Total (01/01/2024 11:10 AM EDT) Hepatitis B Core Antibody Nonreactive Nonreactive [facility] Blood Venous blood specimen / Unknown 01/01/2024 11:10 AM EDT 01/01/2024 1:19 PM EDT Willow Diamond CLAY TRANSPORTER LAB BLOOD ORDERABLES Final Res ult Performing Organization Address [facility] de Phone Number [facility] [address] [place] [phone] * Hepatitis C Antibody with Reflex to HCV, RNA, Quantitative, Real-Time PCR (01/01/2024 11:10 AM EDT) Hepatitis C Antibody Nonreactive Nonreactive [facility] Comment:Antibodies to HCV no t detected; does not exclude early acuteHCV infection. Blood Venous blood specimen / Unknown 01/01/2024 11:10 AM EDT 01/01/2024 1:19 PM EDT Willow Diamond CLAY TRANSPORTER LAB BLOOD ORDERABLES Final Res ult Performing Organization Address [facility]/ZIP Co de Phone Number [facility] [address] [place] [phone] * (ABNORMAL) Hepatic Function Panel (01/01/2024 11:10 AM EDT) Pathologist [facility] Bilirubin, Total 0.6 0.0 - 1.0 mg/dL [facility] Bilirubin, Direct 0.2 0.0 - 0.5 mg/dL [facility] Aspartate Amino Transferase 30 5 - 31 U/L [facility] Alanine Aminotransferase 38(H) 0 - 31 U/L [facility] Total Protein 7.1 6.5 - 8.0 g/dL [facility] Albumin Level 4.0 3.5 - 5.0 g/dL [facility] Alkaline Phosphatase 76 39 - 117 U/L [facility] Blood Venous blood specimen / Unknown 01/01/2024 11:10 AM EDT 01/01/2024 1:23 PM EDT us Willow Diamond CLAY TRANSPORTER LAB BLOOD ORDERABLES Final Res ult Performing Organization Address [facility] Co de Phone Number [facility] [address] [place] [address] [phone] * (ABNORMAL) Liver Fibrosis (HCV), FibroTest-ActiTest Panel (01/01/2024 11:10 AM EDT) Liver Fibrosis Score 0.14 [facility] Liver Fibrosis Stage F0 [facility] Liver Fibrosis Interpretation SEE NOTE [facility] Comment:no fibrosisFibro Lisa t Score (f) Metavir Score f>=0 and f<=0.21 : F0 (no fibrosis)f>0.21 and f<=0.27 : F0-F1 (no fibrosis)f>0.27 and f<=0.31 : F1 (minimal fibrosis)f>0.31 and f<=0.48 : F1-F2 (minimal fibrosis)f>0.48 and f<=0.58 : F2 (moderate fibrosis)f>0.58 and f<=0.72 : F3 (advanced fibrosis)f>0.72 and f<=0.74 : F3-F4 (advanced fibrosis)f>0.74 and f<=1.00 : F4 (severe fibrosis) Nec Inflam Act Score 0.13 [facility] Nec Inflam Act Grade A0 [facility] Nec Inflam Act Interpretation SEE NOTE [facility] Comment:no activityActiTest Score (a) Metavir Score a>=0 and a<=0.17 : A0 (no activity)a>0.17 and a<=0.29 : A0-A1 (no activity)a>0.29 and a<=0.36 : A1 (minimal activity)a>0.36 and a<=0.52 : A1-A2 (minimal activity)a>0.52 and a<=0.60 : A2 (significant activity)a>0.60 and a<=0.62 : A2-A3 (significant activity)a>0.62 and a<=1.00 : A3 (severe activity) ZVT-Uxgrd-7-Macroglo bulin 148 106 - 279 mg/dL [facility] FIB-Haptoglobin 123 43 - 212 mg/dL [facility] FIB-Apolipoprotein A1 155 101 - 198 mg/dL [facility] FIB-Total Bilirubin 0.4 0.2 - 1.2 mg/dL [facility] FIB-GGT 32 3 - 65 U/L [facility] FIB-ALT 32(A) 6 - 29 U/L [facility] Reference ID [id number] [facility] Footnote SEE NOTE [facility] Comment: The reliability of results is dependent on compliance withthe preanalytical and analytical conditions recommended by[employer]. The tests have to be deferred for: acutehemolysis, acute hepatitis, acute inflammation, extrahepatic cholestasis. The advice of a specialist should besought for interpretation in chronic hemolysis and Gilbert'ssyndrome. The test interpretation is not validated in livertransplant patients. Isolated extreme values of one of thecomponents should lead to caution in interpreting theresults. In case of discordance between a biopsy result alem test, it is recommended to seek the advice of aspecialist. The causes of these discordances could be due toa flaw of the test or to a flaw in the biopsy: i.e. a liverbiopsy has a 33% variability rate for one fibrosis stage.FibroTest is interpretable for chronic hepatitis B and C,alcoholic and non alcoholic steatosis. ActiTest isinterpretable for chronic hepatitis B and C.The performance characteristics have been determined by[employer] [facility]. Ithas not been cleared or approved by the U.S. Food and DrugAdministration. Performance characteristics refer to theanalytical performance of the test.[employer], the associated logo, [employer] and all associated [employer] g[employer]mez are theregistered trademarks of [employer]. All third partymarks - (R) and (TM) - are the property of their respectiveowners. (C) [id number] [employer]. Allrights reserved.THIS TEST WAS PERFORMED AT:[facility] [id number] [place] [id number] HAWLEY MD,PHD,BA Blood Venous blood specimen / Unknown 01/01/2024 11:10 AM EDT 01/01/2024 1:19 PM EDT us Willow Diamond CLAY TRANSPORTER LAB BLOOD ORDERABLES Final Res ult [facility] [address] [place] [phone] * (ABNORMAL) CBC auto differential (01/01/2024 11:10 AM EDT) White Blood Count 4.6(L) 4.8 - 10.8 X10*3/uL [facility] Red Blood Count 3.97(L) 4.20 - 5.50 X10*6/uL [facility] Hemoglobin 12.7 12.0 - 16.0 g/dl [facility] Hematocrit 37.7 37.0 - 47.0 % [facility] Mean Corpuscular Volume 95.0 80.0 - 98.0 fL [facility] Mean Corpuscular Hemoglobin 32.0 27.0 - 33.0 pg [facility] Mean Corpuscular HGB Conc 33.7 31.0 - 35.0 g/dl [facility] Red Cell Distribution Width 12.3 11.0 - 16.0 % [facility] Platelet Count 150(L) 160 - 400 X10*3/uL [facility] Mean Platelet Volume 11.9 9.4 - 12.3 fL [facility] Neutrophils Percent Auto 49.8 45 - 73 % [facility] Imm Gran Pct Auto 0.4 0.0 - 0.4 % [facility] Lymphocytes Percent Auto 35.9 20 - 40 % [facility] Monocytes Percent Auto 10.6 2 - 11 % [facility] Eosinophils Percent Auto 2.2 0 - 4 % [facility] Basophils Percent Auto 1.1 0 - 2 % [facility] NRBC Pct Auto 0.0 0.0 - 0.2 /100WBC [facility] Neutrophils Absolute Auto 2.3 2.0 - 8.3 x10*3/uL [facility] Imm Gran Abs Auto 0.02 0.00 - 0.03 X10*3/uL [facility] Lymphocytes Absolute Auto 1.7 1.2 - 4.9 X10*3/uL [facility] Monocytes Absolute Auto 0.5 0.1 - 1.2 X10*3/uL [facility] Eosinophils Absolute Auto 0.1 0.0 - 0.4 X10*3/uL [facility] Basophils Absolute Auto 0.1 0.0 - 0.2 X10*3/uL [facility] NRBC Abs Auto 0.000 0.0 - 0.012 X10*3/uL [facility] Blood Venous blood specimen / Unknown 01/01/2024 11:10 AM EDT 01/01/2024 1:23 PM EDT us Willow TAPIA LAB BLOOD ORDERABLES Final Res ult [facility] [address] [place] [phone] documented in this encounter Visit Diagnoses Diagnosis Thrombocytopenia (CMS/HCC)- Primary Unspecified thrombocytopenia Elevated liver function tests Other abnormal blood chemistry documented in this encounter Additional Health Concerns Assessment Noted Time PHQ-9 Depression Total Score: 10 11/19/ 024 9:43 AM EDT documented as of this encounter Care Teams Security Associate Relationship Specialty Start Date End Date Willow Diamond FNP [address] [place] [address] PCP - General Family Medicine 06/11/22 documented as of this encounter
--- OUTSIDE RECORDS SUMMARY | 2025-01-06 14:35 | XMS_ITS | Encounter Summary ---
Author Organization [employer] Address [address] [facility] 7t [place] [address] Care Team Providers Care Office Executive Name Role Phone Willow Diamond REGINA Primary Care Provider [phone] Encounter Details Date Type Department Care Team (Late st Contact Info) Description 02/20/2023 Abstract [facility] [address] [facility] [place], [place] [phone] Ashley Nunes Social History Tobacco Use Types Packs/Day Years Used Date Smoking Tobacco: Never Smokeless Tobacco: Never Alcohol Use Standard Drinks/Week Comments Yes 0 (1 standard drink = 0.6 oz pur e alcohol) occasional Depression Answer Date Recorded Patient Health Questionnaire-9 Score 9 02/06/2023 Patient Health Questionnaire-9 Score 9 02/06/2023 Last PHQ-9: Questionnaire Data Not on file 1 04/08/2022 Housing Stability Answer Date Recorded What is your housing situation today? I have izabella bustamante 01/23/[address] you li ve. Do you have problems with any of the following? None of the above 01/23/2023 Food Insecurity Answer Date Recorded Within the past 12 months, y ou worried that your food would run out before you got money to buy more: Never True 01/23/2023 Within the past 12 months,th e food you bought just didn't last and you didn't have enough money to get more: Never True Transportation Answer Date Recorded In the past 12 months, has l ack of transportation kept you from medical appts, meetings, work or from getting things needed for daily living? No 01/23/2023 Utilities Answer Date Recorded In the past 12 months, has t he electric, gas, oil or water company threatened to shut off services in your home? No 01/23/2023 Depression Answer Date Recorded Patient Health Questionnaire-2 Score 3 02/06/2023 Comments Unknown Sex and Gender Information Value Date Recorded [...] Assessment Noted Time PHQ-9 Depression Total Score: 9 02/07/20 23 11:35 AM EDT documented as of this encounter Care Teams Office Executive Relationship Specialty Start Date End Date Willow Diamond FNP [address] [place] [phone] PCP - General Family Medicine 06/11/22 documented as of this encounter
--- OUTSIDE RECORDS SUMMARY | 2025-01-06 14:35 | XMS_ITS | Encounter Summary ---
Author Organization [facility] Address [address] [place] [address] Phone Care Team Providers Care Principal Technical Specialist Name Role Phone Myah Partida MD Primary Care Provider Unava ilable Encounter Details Date Type Department Care Team (Late st Contact Info) Description 11/26/2021 Procedure Pass [facility] [address] [place] [phone] Social History Tobacco Use Types Packs/Day Years Used Date Smoking Tobacco: Never Smokeless Tobacco: Never Alcohol Use Standard Drinks/Week Comments Yes 0 (1 standard drink = 0.6 oz pur e alcohol) rare Comments No Sex and Gender Information Value Date Recorded Sex Assigned at Not on file Legal Sex Female 3:33 PM EDT Gender Identity Not on file Sexual Orientation Not on file documented as of this encounter Plan of Treatment Not on file documented as of this encounter Visit Diagnoses Not on filedocumented in this encounter Care Teams Principal Technical Specialist Relationship Specialty Start Date End Date Myah Partida MD PCP - General Internal Medicine 10/23/21 documented as of this encounter Additional Source Comments The information contained in this document represents components of the legal health record. It is not the complete legal health record.[facility]
--- OUTSIDE RECORDS SUMMARY | 2025-01-06 14:35 | XMS_ITS | Clinical Summary ---
Author Organization [facility] Address [address] [address] Phone Care Team Providers Care Registered Phlebotomist Part Time Name Role Phone Myah Partida MD Primary Care Provider Unachaparro ilable Allergies No known active allergies Medications atorvastatin (LIPITOR) 20 MG tablet Take 20 mg by mouth Every Afternoon. 09/03/2021 Active levothyroxine (SYNTHROID, LEVOTHROID) 137 MCG tablet Take 137 mcg by mouth daily. 09/03/2021 Active alendronate (FOSAMAX) 70 MG tablet Take 70 mg by mouth once a week. 09/03/2021 Active calcium citrate-vitamin D3 (CITRACAL+D) 315 mg-5 mcg (200 unit) per tablet Take 2 tablets by mouth 2 (two) times a day. 09/04/2021 Active ibuprofen (ADVIL,MOTRIN) 200 MG tablet Take 3 tablets (600 mg total) by mouth every 8 (eight) hours as needed for pain (specific location in comments). 11/26/2021 Active oxyCODONE 5 MG immediate release tablet Take 1 tablet (5 mg total) by mouth every 4 (four) hours as needed for moderate pain. Partial fill ok 40 tablet 11/26/2021 Active Active Problems Problem Noted Date Diagnosed Date Allergic rhinitis 11/26/2021 Depressive disorder 11/26/2021 Hyperlipidemia 11/26/2021 Hypothyroidism 11/26/2021 Impaired glucose tolerance 11/26/2021 Osteoarthritis of both knees 11/26/2021 Osteopenia 11/26/2021 Social History Tobacco Use Types Packs/Day Years Used Date Smoking Tobacco: Never Smokeless Tobacco: Never Alcohol Use Standard Drinks/Week Comments Yes 0 (1 standard drink = 0.6 oz pur e alcohol) rare Education Answer Date Recorded Are you interested in more education? Not on devendra e 08/02/2022 Are you concerned about learning? Not on file 08/02/2022 No 08/02/2022 No 08/02/2022 Digital Access Answer Date Recorded No 08/31/2022 No 08/31/2022 No 08/31/2022 Reliable internet access at home? Not on file 08/31/2022 Device with a working camera? Not on file Comments No Sex and Gender Information Value Date Recorded Sex Assigned at Not on file Legal Sex Female 3:33 PM EDT Gender Identity Not on file Sexual Orientation Not on file Last Filed Vital Signs Vital Sign Reading Time Taken Comments Blood Pressure 120/63 11/26/2021 3:50 PM EDT Pulse 75 11/26/2021 3:50 PM EDT Temperature 36.1 C (97 F) 11/26/2021 3:20 PM EDT Respiratory Rate 18 11/26/2021 3:50 PM EDT Oxygen Saturation 97% 11/26/2021 3:50 PM EDT Inhaled Oxygen Concentration - - Weight 79.4 kg (175 lb) 11/19/2021 11:21 AM EDT Height 154.9 cm (5' 1 ) 11/19/2021 11:21 AM EDT Body Mass Index 33.07 11/19/2021 11:21 AM EDT Plan of Treatment Health Maintenance Due Date Last Done Comments LIPID PANEL 1953 TSH LEVEL 1953 DEPRESSION SCREENING 1965 HEPATITIS C SCREENING 10/01/1971 MAMMOGRAM 1993 COLOGUARD 1998 COLONOSCOPY 1998 COLORECTAL CANCER SCREENING 1998 FIT TEST 1998 FOBT 1998 SIGMOIDOSCOPY 1998 VIRTUAL COLONOSCOPY 1998 OSTEOPOROSIS SCREENING INITIAL (ONE-TIME) 2018 PNEUMOCOCCAL VACCINES (50+ years) (2 of 2 - PPSV23) 01/15/2022 01/15/2021 INFLUENZA VACCINE (#1) 2024 , 02/28/2020, 01/10/2019, Additional history exists COVID-19 VACCINE (2024- season) 2024 08/22/2021, 02/13/2021, 08/01/2020, Additional history exists Adult Td,Tdap Booster 08/19/2026 08/19/2016, 003 RSV VACCINE (1 - 1-dose 75+ series) 2028 ZOSTER VACCINES Completed 08/22/2021, 10/2021, 09/26/2015 SMOKING STATUS SCREENING (Once After 26 Yrs) Completed 11/19/2021 HEPATITIS A VACCINES Aged Out No long er eligible based on patient's age to complete this topic HIB VACCINES Aged Out No longer eligi ble based on patient's age to complete this topic MENINGOCOCCAL VACCINES (ACWY) Aged Out No longer eligible based on patient's age to complete this topic MENINGOCOCCAL VACCINES (B) Aged Out N o longer eligible based on patient's age to complete this topic Medical Devices Implanted Type Area Director Special Education Device Identifier Shelf Expiration Date Model / Serial / Lot Screw Bone 3.5x14mm Cortex Self Tapping Fully Threaded Hex Head Ss - [id number] Implanted:Qty: 1 on 11/26/2021 by Edward Lopez MD at [facility] Left: Elbow SYNTHES 204.814 / / Screw Bone 2.7x18mm Cortical Self Tapping Fully Threaded Hex Head Ss Bx/1ea - [id number] Implanted:Qty: 1 on 11/26/2021 by Edward Lopez MD at [facility] Left: Elbow SYNTHES 202.818 / / Screw Bone 3.5x16mm Cortex Self Tapping Fully Threaded Hex Head Ss - [id number] Implanted:Qty: 2 on 11/26/2021 by Edward Lopez MD at [facility] Left: Elbow SYNTHES 204.816 / / Screw Bone 3.5x22mm Cortex Self Tapping Fully Threaded Hex Head Ss - [id number] Implanted:Qty: 1 on 11/26/2021 by Edward Lopez MD at [facility] Left: Elbow SYNTHES 204.822 / / [place] Suture Size 2 0 Needlecp2 [id number] Arthroscopy Gii Quick Plus - [id number] Implanted:Qty: 1 on 11/26/2021 by Edward Lopez MD at [facility] Left: Elbow [employer] 09/03/2026 [id number] / / [id number] Screw Bone 40x2.7mm Ss Variable Angle Locking Self Tapping Full Thread T8 Stardrive Recess - [id number] Implanted:Qty: 1 on 11/26/2021 by Edward Lopez MD at [facility] Left: Elbow SYNTHES 0 / / Screw Bone 20x2.7mm Ss Variable Angle Locking Self Tapping Full Thread T8 Stardrive Recess - [id number] Implanted:Qty: 1 on 11/26/2021 by Edward Lopez MD at [facility] Left: Elbow SYNTHES . 0 / / Screw Bone 18x2.7mm Ss Variable Angle Locking Self Tapping Full Thread T8 [employer]rive Recess - [id number] Implanted:Qty: 1 on 11/26/2021 by Edward Lopez MD at [facility] Left: Elbow SYNTHES 8 / / Screw Bone 14x2.7mm Ss Variable Angle Locking Self Tapping Full Thread T8 [employer]rive Recess - [id number] Implanted:Qty: 1 on 11/26/2021 by Edward Lopez MD at [facility] Left: Elbow SYNTHES . 4 / / Olecranon Plate 2.7 [id number] 4 Hole Lcp Ss Variable Angle Left - [id number] Implanted:Qty: 1 on 11/26/2021 by Edward Lopez MD at [facility] Left: Elbow SYNTHES 30 4 / / Explanted Type Area Director Special Education Device Identifier Shelf Expiration Date Model / Serial / Lot Hardware Explanted:Qty: 1 on 11/26/2021 at [facility] Left: Elbow Description:9 screws and one plate were taken out. Insurance [facility] MEDICARE REPLACEMENT MEDICARE PART A & B [place] [id number] MEDICARE PART A & B MEDICARE PART A & B Member Subscriber Plan / Payer (Ef fective 2018-Present) Name:Samanta Farrell Member ID:[id number] Relation to Subscriber:Self Name:Samanta Farrell Subscriber ID:[id number] Payer ID:[id number] Group ID:Not on file Type:Medicare Address: [employer] [address] [place] [address] [facility] MEDICARE REPLACEMENT MEDICARE PART A & B MEDICARE REPLACEMENT MEDICARE PART A & B MEDICARE REPLACEMENT MEDICARE PART A & B [place] [id number] MEDICARE PART A & B MEDICARE REPLACEMENT MEDICARE PART A & B [facility] SCO MEDICARE REPLACEMENT [place] [id number] MEDICARE PART A & B Care Teams Registered Phlebotomist Part Time Relationship Specialty Start Date End Date Myah Partida MD PCP - General Internal Medicine 10/23/21 Additional Source Comments The information contained in this document represents components of the legal health record. It is not the complete legal health record.[facility]
--- OUTSIDE RECORDS SUMMARY | 2025-01-06 14:35 | XMS_ITS | Encounter Summary ---
Author Organization [employer] Address [address] [facility] 7t [place] [address] Care Team Providers Care Double Surface Operator Name Role Phone Willow Diamond Primary Care Provider [phone] Reason for Visit * Reason Onset Date Comments Chart Prep 01/05/2025 Encounter Details Date Type Department Care Team ([facility] st Contact Info) Description 01/05/2025 Telephone [facility] [address] [place], [place] [phone] Willow Diamond FNP [address] [place] [address] Chart Prep Social History Tobacco Use Types Packs/Day Years [...] AM EDT documented as of this encounter Miscellaneous Notes * Telephone Encounter - Geovanna Cook MA - 01/05/2025 2:34 PM EDT Chart Prep Labs: done Images: done Referrals: complete Vaccines due: Covid and Flu Screenings: not applicable Overdue care gaps: PHQ-9 documented in this encounter Plan of Treatment Not on file documented as of this encounter Visit Diagnoses Not on filedocumented in this encounter Additional Health Concerns Assessment Noted Time PHQ-9 Depression Total Score: 10 024 9:43 AM EDT documented as of this encounter Care Teams Double Surface Operator Relationship Specialty Start Date End Date Willow Diamond FNP [address] [place] [phone] PCP - General Family Medicine 06/11/22 documented as of this encounter
--- OUTSIDE RECORDS SUMMARY | 2025-01-06 14:35 | XMS_ITS | Encounter Summary ---
Author Organization [facility] Address [address] [place] [address] Phone Care Team Providers Care Outboard Technician Name Role Phone Myah Partida MD Primary Care Provider Unava ilable Encounter Details Date Type Department Care Team (Late st Contact Info) Description 11/13/2021 Procedure Pass [facility] - [place] [address] [facility], 3rd [place] [address] Social History Tobacco Use Types Packs/Day Years [...] on filedocumented in this encounter Care Teams Outboard Technician Relationship Specialty Start Date End Date Myah Partida MD PCP - General Internal Medicine 10/23/21 documented as of this encounter Additional Source Comments The information contained in this document represents components of the legal health record. It is not the complete legal health record.[facility]
--- OUTSIDE RECORDS SUMMARY | 2025-01-06 14:35 | XMS_ITS | Encounter Summary ---
Author Organization [employer] Address [address] [facility] 7t [place] [address] Care Team Providers Care Manifest Clerk Name Role Phone Willow Diamond Primary Care Provider [phone] Encounter Details Date Type Department Care Team (Latest Contact Info) Description 07/04/2021 Abstract [facility] CONVERSIONS Dental, Provider, DDS Social History Tobacco Use Types Packs/Day Years Used Date Smoking Tobacco: Never Assessed Comments Unknown Sex and Gender Information Value [...] on filedocumented in this encounter Care Teams Manifest Clerk Relationship Specialty Start Date End Date Willow Diamond FNP [address] [place] [address] PCP - General Family Medicine 06/11/22 documented as of this encounter
--- OUTSIDE RECORDS SUMMARY | 2025-01-06 14:35 | XMS_ITS | Encounter Summary ---
Author Organization [employer] Address [address] [facility] 7t [place] [address] Care Team Providers Care Bereavement Program Coordinator Name Role Phone Willow Diamond Primary Care Provider [phone] Encounter Details Date Type Department Care Team ([facility] st Contact Info) Description 01/06/2025 Results Follow-Up [facility] CHC MED & PEDS [address] [place], [place] [phone] Willow Diamond FNP [address] [place], [place] [phone] POCT Urinalysis Social History Tobacco Use Types Packs/Day Years [...] Author Not at all 01/06/2025 10:11 AM EDT Theodora Patel MA * Thoughts that you would be [...] documented as of this encounter Care Teams Bereavement Program Coordinator Relationship Specialty Start Date End Date Willow Diamond FNP [address] [place] [address] PCP - General Family Medicine 06/11/22 documented as of this encounter
== END 2025-01-06 14:34 | disposition home or self-care (01) ==
LOC: HO.LNP 14:33
PROVIDERS: Visit Provider Registered Nurse
DX: R35.0 Frequency of micturition (principal)
CPT/HCPCS: 87086

== ENCOUNTER 2025-01-10 08:51 | Outpatient (REF) | payer OTHER, SELFPAY ==
--- OUTSIDE RECORDS SUMMARY | 2025-01-06 10:15 | XMS_ITS | Encounter Summary ---
Author Organization [employer] Address [address] [facility] 7t [place] [address] Care Team Providers Care Clarification Operator Name Role Phone Willow Diamond Primary Care Provider [phone] Encounter Details Date Type Department Care Team ([facility] Contact Info) Description 01/06/2025 10:15 AM EDT Office Visit [facility] [address] [place], [place] [phone] Willow Diamond FNP [address] [place], [place] [phone] Urinary frequency (Primary Dx); Healthcare maintenance; Encounter [...] Assessment Author Several days 01/06/2025 10:11 AM CHARILET Theodora Patel MA * Moving or speaking [...] Healthcare maintenance Expected: 01/06/2025 (Approximate), Expires: 01/06/2026 Chlamydia/Trichomonas/Neis seria gonorrhoeae, PCR, Urine Lab Routine Healthcare maintenance Expected: 01/06/2025 (Approximate), Expires: 01/06/2026 documented as of this encounter Procedures Procedure Name Priority Date/Time Associated Diagnosis Comments POCT URINALYSIS DIPSTICK Routine 01/06/2025 11:04 AM EDT Urinary frequency CULTURE, URINE, ROUTINE Routine 01/06/2025 12:00 AM EDT Urinary frequency documented in this [...] Media Lot # [id number] Lot# Expiration Date 3789,026 Urine 01/06/2025 11:0 4 AM EDT us Willow Diamond [facility] POINT OF CARE TEST ENTER/EDIT ORDERABLES Final Result * Culture, Urine, Routine (01/06/2025 12:00 AM EDT) Urine Urine specimen obtained by clean catch procedure / Unknown 01/06/2025 01/06/2025 Comment:UACC Narrative [facility] - 01/08/2025 11:33 AM EDT Urine Culture Report Result Urine Culture 50,000 to 100,000 cfu/ml Urine Culture Mixed bacterial reno characteristic of Urine Culture urogenital contamination. Specimen Source: Urine clean catch Willow [facility] MICROBIOLOGY - GENERAL ORD ERABLES Final Result [facility] [address] [place] [phone] documented in this encounter Visit Diagnoses Diagnosis Urinary frequency- Primary Healthcare maintenance Encounter for immunization Encounter for vaccination documented in this encounter Additional Health Concerns Assessment Noted Time PHQ-9 Depression Total Score: 12 025 10:11 AM EDT documented as of this encounter Care Teams Clarification Operator Relationship Specialty Start Date End Date Willow Diamond FNP [address] [place] [id number] PCP - General Family Medicine 06/11/22 documented as of this encounter
--- OUTSIDE RECORDS SUMMARY | 2025-01-10 09:35 | XMS_ITS | Encounter Summary ---
Author Organization [employer] Address [address] [facility] 7t [place] [address] Care Team Providers Care Civil Engineering Design Draftsperson Name Role Phone Willow Diamond REGINA Primary Care Provider [phone] Encounter Details Date Type Department Care Team [...] documented as of this encounter Care Teams Civil Engineering Design Draftsperson Relationship Specialty Start Date End Date Willow Diamond FNP [address] [place] [address] PCP - General Family Medicine 06/11/22 documented as of this encounter
--- OUTSIDE RECORDS SUMMARY | 2025-01-10 09:35 | XMS_ITS | Clinical Summary ---
Author Organization [facility] Address [address] [address] Phone Care Team Providers Care Plastic Jig And Fixture Builder Name Role Phone Myah Partida MD Primary [...] this topic Medical Devices Implanted Type Area Rnfa Device Identifier Shelf Expiration Date Model / Serial / Lot Screw Bone 3.5x14mm Cortex Self Tapping Fully Threaded Hex Head Ss - [id number] Implanted:Qty: 1 on 11/26/2021 by Edward Lopez MD at [facility] Left: Elbow SYNTHES 204.814 / / Screw Bone 2.7x18mm Cortical Self Tapping Fully Threaded Hex Head Ss Bx/1ea - [id number] Implanted:Qty: 1 on 11/26/2021 by Edward Lopez MD at [facility] Left: Elbow SYNTHES 202.818 / / Screw Bone 3.5x16mm Cortex Self Tapping Fully Threaded Hex Head Ss - [id number] Implanted:Qty: 2 on 11/26/2021 by Edward Lopez MD at [facility] Left: Elbow SYNTHES 204.816 / / Screw Bone 3.5x22mm Cortex Self Tapping Fully Threaded Hex Head Ss - [id number] Implanted:Qty: 1 on 11/26/2021 by Edward Lopez MD at [facility] Left: Elbow SYNTHES 204.822 / / [place] Suture Size 2 0 Needlecp2 [id number] Arthroscopy Gii Quick Plus - [id number] Implanted:Qty: 1 on 11/26/2021 by Edward Lopez MD at [facility] Left: Elbow [employer] 09/03/2026 [id number] / / [id number] Screw Bone 40x2.7mm Ss Variable Angle Locking Self Tapping Full Thread T8 Stardrive Recess - [id number] Implanted:Qty: 1 on 11/26/2021 by Edward Lopez MD at [facility] Left: Elbow SYNTHES 0 / / Screw Bone 20x2.7mm Ss Variable Angle Locking Self Tapping Full Thread T8 Stardrive Recess - [id number] Implanted:Qty: 1 on 11/26/2021 by Edward Lopez MD at [facility] Left: Elbow SYNTHES . 0 / / Screw Bone 18x2.7mm Ss Variable Angle Locking Self Tapping Full Thread T8 Stardrive Recess - [id number] Implanted:Qty: 1 on 11/26/2021 by Edward Lopez MD at [facility] Left: Elbow SYNTHES 8 / / Screw Bone 14x2.7mm Ss Variable Angle Locking Self Tapping Full Thread T8 Stardrive Recess - [id number] Implanted:Qty: 1 on 11/26/2021 by Edward Lopez MD at [facility] Left: Elbow SYNTHES . 4 / / Olecranon Plate 2.7 [id number] 4 Hole Lcp Ss Variable Angle Left - [id number] Implanted:Qty: 1 on 11/26/2021 by Edward Lopez MD at [facility] Left: Elbow SYNTHES 30 4 / / Explanted Type Area Rnfa Device Identifier Shelf Expiration Date Model / Serial / Lot Hardware Explanted:Qty: 1 on 11/26/2021 at [facility] Left: Elbow Description:9 screws and one plate were taken out. Insurance [facility] MEDICARE REPLACEMENT MEDICARE PART A & B [place] [id number] MEDICARE PART A & B MEDICARE PART A & B [facility] MEDICARE REPLACEMENT MEDICARE PART A & B MEDICARE REPLACEMENT MEDICARE PART A & B MEDICARE REPLACEMENT MEDICARE PART A & B [place] [id number] MEDICARE PART A & B MEDICARE REPLACEMENT MEDICARE PART A & B [facility] MEDICARE REPLACEMENT [place] [id number] MEDICARE PART A & B Care Teams Plastic Jig And Fixture Builder Relationship Specialty Start Date End Date Myah Partida MD PCP - General Internal Medicine 10/23/21 Additional Source Comments The information contained in this document represents components of the legal health record. It is not the complete legal health record.[facility]
--- OUTSIDE RECORDS SUMMARY | 2025-01-10 09:35 | XMS_ITS | Encounter Summary ---
Author Organization [employer] Address [address] [facility] 7t [place] [address] Care Team Providers Care Food Aide Name Role Phone Willow Diamond Primary Care Provider [phone] Encounter Details Date Type Department Care Team ([facility] st Contact Info) Description 01/06/2025 Results Follow-Up [facility] CHC MED & PEDS [address] [place], [place] [phone] Wlilow Diamond FNP [address] [place], [place] [phone] POCT Urinalysis Social History Tobacco Use Types [...] documented as of this encounter Care Teams Food Aide Relationship Specialty Start Date End Date Willow Diamond FNP [address] [place] [address] PCP - General Family Medicine 06/11/22 documented as of this encounter
--- OUTSIDE RECORDS SUMMARY | 2025-01-10 09:35 | XMS_ITS | Encounter Summary ---
Author Organization [employer] Address [address] [facility] 7t [place] [address] Care Team Providers Care Quality Assurance Inspector Name Role Phone Willow Diamond Primary Care Provider Reason for Visit * Reason Onset Date Comments Chart Prep 01/05/2025 Encounter Details Date Type Department Care Team ([facility] st Contact Info) Description 01/05/2025 Telephone [facility] CHC MED & PEDS [address] [place], [place] [phone] Willow Diamond FNP [address] [place] [address] Chart Prep Social History Tobacco Use Types [...] documented as of this encounter Care Teams Quality Assurance Inspector Relationship Specialty Start Date End Date Willow Diamond FNP [address] [place] [address] PCP - General Family Medicine 06/11/22 documented as of this encounter
--- OUTSIDE RECORDS SUMMARY | 2025-01-10 09:35 | XMS_ITS | Encounter Summary ---
Author Organization [facility] Address [address] [facility] [address] [place] [address] Phone Care Team Providers Care Furniture Removalist Name Role Phone Myah Partida MD Primary Care Provider Unava ilable Encounter Details Date Type Department Care Team (Late st Contact Info) Description 11/26/2021 Procedure Pass [facility] PERIOPERATIVE DEPT [address] [place] [phone] Social History Tobacco Use Types Packs/Day Years [...] on filedocumented in this encounter Care Teams Furniture Removalist Relationship Specialty Start Date End Date Myah Partida MD PCP - General Internal Medicine 10/23/21 documented as of this encounter Additional Source Comments The information contained in this document represents components of the legal health record. It is not the complete legal health record.[facility]
--- OUTSIDE RECORDS SUMMARY | 2025-01-10 09:35 | XMS_ITS | Clinical Summary ---
Author Organization [facility] [employer] Address [address] [facility] 7t [place] [address] Care Team Providers Care Lift Truck Operator Name Role Phone Willow Diamond REGINA Primary Care Provider [phone] Allergies No known active allergies Medications cetirizine [...] 07/30/2022 Overview (01/06/2025): Routine Health Maintenance Optometry: [facility] (Last appt jan 2023). [facility] in October 2023. Dental: [facility] Dental BMD: osteoporosis September 2022 Last PE: [...] Description 01/06/2025 10:15 AM EDT Office Visit [facility] MED & PEDS [address] [place] [address] Willow Diamond FNP Urinary frequency (Primary Dx); Healthcare maintenance; Encounter for immunization; Encounter for vaccination 01/06/2025 Results Follow-Up [facility] MED & PEDS [address] [place] [address] Willow Diamond FNP POCT Urinalysis 01/06/2025 Travel 01/05/2025 Telephone [facility] MED & PEDS [address] [place] [address] Willow Diamond FNP Chart Prep 12/29/2024 Patient Outreach [facility] MEDICINE [address] [place] [address] Willow Diamond FNP Pre-visit Planning (SDOH screening negative and Tobacco screening negative) 11/16/2024 Refill [facility] CHC MED & PEDS [address] [place] [address] Willow Diamond FNP Osteoporosis without current pathological [...] Routine 01/06/2025 12:00 AM EDT Urinary frequency BI MAMMOGRAM SCREENING [...] Media Lot # [id number] Lot# Expiration Date [id number] Urine 01/06/2025 11:0 4 AM EDT Willow TAPIA POINT OF CARE TEST ENTER/EDIT ORDERABLES Final Result * Culture, Urine, Routine (01/06/2025 12:00 AM EDT) Urine Urine specimen obtained by clean catch procedure / Unknown 01/06/2025 01/06/2025 Comment:UACC Narrative [facility] - 01/08/2025 11:33 AM EDT Urine Culture Report Result Urine Culture 50,000 to 100,000 cfu/ml Urine Culture Mixed bacterial reno characteristic of Urine Culture urogenital contamination. Specimen Source: Urine clean catch Willow TAPIA LAB MICROBIOLOGY - GENERAL ORD ERABLES Final Result [facility] [address] [place] [phone] * BI Mammogram Screening Tomosynthesis Bilateral (10/03/2024 8:55 AM EDT) Anatomical Region Laterality Modality Breast Bilateral Mammography 10/03/2024 8:55 AM EDT Narrative 10/16/2024 1:26 PM EDT [facility] [address] [place] [address] Mammography Report Signed Patient: Samanta Ruano MR#: [id number] : 1955 Acct:[id number] Age/Sex: 69 / F ADM Date: 10/03/24 Loc: HOReaMAMMO Attending Dr: Willow TAPIA Ordering Physician: Willow Diamond Results: 1Negat janis Date of Service: 10/03/24 Follow Up: 1 Year From Orig ina Mammogram Procedure(s): MM tomosynthesis screening BI Accession Number(s): [id number] cc: Willow Diamond EXAMINATION: MM SCREENING DIGITAL [...] Ivy Smith DO 10/16/2024 01:24 PM EDT Dictated By: Ivy Smith DO Signed By: <Electronically signed by Ivy Smith DO in OV> 10/16/24 1324 DD/ 0855 TD/TT: 10/03/24 0920 Signaling Design Engineer: Procedure Note Donotuseinterpreter, Image - 10/16/2024 [facility] [address] [place] [address] Dr. Gu[place]ro, LOCO [address] Mammography Report Signed Patient: Carrie Ruano#: [id number] : 4Acct:[id number] Age/Sex: 69 / FADM Date: 10/03/24 Loc: HO.MAMMO Attending Dr: Willow TAPIA Ordering Physician: Willow Diamond FNPResults: 1Negat janis Date of Service: 10/03/24Follow Up: 1 Year From [facility] ina Mammogram Procedure(s): MM tomosynthesis screening BI Accession Number(s): [id number] cc: Willow Diamond EXAMINATION: MM SCREENING DIGITAL [...] Ivy Smith DO 10/16/2024 01:24 PM EDT Dictated By: Ivy Smith DO Signed By: <Electronically signed by Ivy Smith DO in OV> 10/16/24 1324 DD/ 0855 TD/TT: 10/03/24 0920 Signaling Design Engineer: Willow TAPIA IMG BI PROCEDURES Final Result * Hepatitis C Antibody with Reflex to HCV, RNA, Quantitative, Real-Time PCR (01/01/2024 11:10 AM EDT) Hepatitis C Antibody Nonreactive Nonreactive [facility] Comment:Antibodies to HCV no t detected; does not exclude early acuteHCV infection. Blood Venous blood specimen / Unknown 01/01/2024 11:10 AM EDT 01/01/2024 1:19 PM EDT us Willow MCGUIREP LAB BLOOD ORDERABLES Final Res ult [facility] [address] [place] [address] [phone] * (ABNORMAL) Colonoscopy (07/13/2023) Colonoscopy Abnormal(A ) Normal 07/13/2023 Narrative Willow Diamond FNP - 07/13/2023 [facility] - Dr. Hackett. Repeat 3 years. us Historical Provider HEALTH MAINTENANCE Final Result * Fecal immunochemical (05/28/2022) Fecal Immunoassay Test (External) Neg Stool Rectal contents / Unknown Historical Provider MD LAB BODY FLUIDS AND STOOL S ORDERABLES Final Result from Last 3 Months or Most Recently Relevant to Health Maintenance Insurance [facility] OPTIONS (HMO D-SNP) [place] [id number] [facility] STAND ADULT [facility] Advance Directives Documents on File Type Date Recorded Patient Plant Operations Worker Expl anation Advance Directives and Livin g Will 03/28/2024 10:55 AM HCP Care Teams Lift Truck Operator Relationship Specialty Start Date End Date Willow Diamond FNP [address] [place] [address] PCP - General Family Medicine 06/11/22
--- OUTSIDE RECORDS SUMMARY | 2025-01-10 09:36 | XMS_ITS | Encounter Summary ---
Author Organization [employer] Address [address] [facility] 7t [place] [address] Care Team Providers Care Water Supervisor Name Role Phone Willow Diamond Primary Care Provider [phone] Encounter Details Date Type Department Care Team (Latest Contact Info) Description 07/04/[address] [facility] CONVERSIONS Dental, Provider, DDS Social History Tobacco [...] on filedocumented in this encounter Care Teams Water Supervisor Relationship Specialty Start Date End Date Willow Diamond FNP [address] [place] [address] PCP - General Family Medicine 06/11/22 documented as of this encounter
--- OUTSIDE RECORDS SUMMARY | 2025-01-10 09:36 | XMS_ITS | Encounter Summary ---
Author Organization [facility] Address [address] [place] [address] Phone Care Team Providers Care Psychiatric Technician Name Role Phone Myah Partida MD Primary Care Provider Unava ilable Encounter Details Date Type Department Care Team (Late st Contact Info) Description 11/13/2021 Procedure Pass [facility] [place] [address] [facility], 3rd [place] [address] Social History Tobacco Use Types Packs/Day Years [...] on filedocumented in this encounter Care Teams Psychiatric Technician Relationship Specialty Start Date End Date Myah Partida MD PCP - General Internal Medicine 10/23/21 documented as of this encounter Additional Source Comments The information contained in this document represents components of the legal health record. It is not the complete legal health record.[facility]
--- OUTSIDE RECORDS SUMMARY | 2025-01-10 09:36 | XMS_ITS | Encounter Summary ---
Author Organization [employer] Address [address] [facility] 7t [place] [address] Care Team Providers Care Physical Therapy Technician Name Role Phone Willow Diamond REGINA Primary Care Provider Encounter Details Date Type Department Care Team (Late st Contact Info) Description 02/20/2023 Abstract [facility] [address] [facility] [place], [place] [phone] Ashley Nunes Social History Tobacco Use Types [...] documented as of this encounter Care Teams Physical Therapy Technician Relationship Specialty Start Date End Date Willow Diamond FNP [address] [place] [address] PCP - General Family Medicine 06/11/22 documented as of this encounter
--- OUTSIDE RECORDS SUMMARY | 2025-01-10 09:36 | XMS_ITS | Encounter Summary ---
Author Organization [employer] Address [address] [facility] [address] [place] [address] Care Team Providers Care Structural Steel Ironworker Name Role Phone Willow Diamond POWERHOUSE ELECTRICIAN Primary Care Provider [phone] Encounter Details Date Type Department Care Team ([facility] st Contact Info) Description 12/15/2023 Orders Only [facility] [address] [place], [place] [phone] Willow Diamond FNP [address] [place], [place] [phone] Thrombocytopenia (CMS/HCC) (Primary Dx); Elevated liver function [...] Hepatitis B Surface Ag Negative Negative [facility] Blood Venous blood specimen / Unknown 01/01/2024 11:10 AM EDT 01/01/2024 1:19 PM EDT us Willow Diamond POWERHOUSE ELECTRICIAN LAB BLOOD ORDERABLES Final Res ult Performing Organization Address [facility] Co de Phone Number [facility] [address] [place] [phone] * Hepatitis B Surface Antibody, Qualitative (01/01/2024 11:10 AM EDT) ~Hepatitis B Surface Antibody NONREACTIVE Nonreactive [facility] Comment:Nonreactive: < 8.00 mIU/mL Blood Venous blood specimen / Unknown 01/01/2024 11:10 AM EDT 01/01/2024 1:19 PM EDT Willow Diamond POWERHOUSE ELECTRICIAN LAB BLOOD ORDERABLES Final Res ult Performing Organization Address [facility] de Phone Number [facility] [address] [place] [phone] * Hepatitis B Core Antibody, Total (01/01/2024 11:10 AM EDT) Hepatitis B Core Antibody Nonreactive Nonreactive [facility] Blood Venous blood specimen / Unknown 01/01/2024 11:10 AM EDT 01/01/2024 1:19 PM EDT Willow Diamond POWERHOUSE ELECTRICIAN LAB BLOOD ORDERABLES Final Res ult Performing Organization Address [facility] de Phone Number [facility] [address] [place] [phone] * Hepatitis C Antibody with Reflex to HCV, RNA, Quantitative, Real-Time PCR (01/01/2024 11:10 AM EDT) Hepatitis C Antibody Nonreactive Nonreactive [facility] Comment:Antibodies to HCV no t detected; does not exclude early acuteHCV infection. Blood Venous blood specimen / Unknown 01/01/2024 11:10 AM EDT 01/01/2024 1:19 PM EDT Willow Diamond POWERHOUSE ELECTRICIAN LAB BLOOD ORDERABLES Final Res ult Performing Organization Address [facility]/ZIP Co de Phone Number [facility] [address] [place] [phone] * (ABNORMAL) Hepatic Function Panel (01/01/2024 11:10 AM EDT) Pathologist [facility] Bilirubin, Total 0.6 0.0 - 1.0 mg/dL [facility] Bilirubin, Direct 0.2 0.0 - 0.5 mg/dL [facility] Aspartate Amino Transferase 30 5 - 31 U/L [facility] Alanine Aminotransferase 38(H) 0 - 31 U/L [facility] Total Protein 7.1 6.5 - 8.0 g/dL [facility] Albumin Level 4.0 3.5 - 5.0 g/dL [facility] Alkaline Phosphatase 76 39 - 117 U/L [facility] Blood Venous blood specimen / Unknown 01/01/2024 11:10 AM EDT 01/01/2024 1:23 PM EDT us Willow Diamond POWERHOUSE ELECTRICIAN LAB BLOOD ORDERABLES Final Res ult Performing Organization Address [facility] Co de Phone Number [facility] [address] [place] [phone] * (ABNORMAL) Liver Fibrosis (HCV), FibroTest-ActiTest Panel (01/01/2024 11:10 AM EDT) Liver Fibrosis Score 0.14 [facility] Liver Fibrosis Stage F0 [facility] Liver Fibrosis Interpretation SEE NOTE [facility] Comment:no fibrosisFibro Lisa t Score (f) [...] fibrosis) Nec Inflam Act Score 0.13 [facility] Nec Inflam Act Grade A0 [facility] Nec Inflam Act Interpretation SEE NOTE [facility] Comment:no activityActiTest Score (a) Metavir Score a>=0 and a<=0.17 : A0 (no activity)a>0.17 and a<=0.29 : A0-A1 (no activity)a>0.29 and a<=0.36 : A1 (minimal activity)a>0.36 and a<=0.52 : A1-A2 (minimal activity)a>0.52 and a<=0.60 : A2 (significant activity)a>0.60 and a<=0.62 : A2-A3 (significant activity)a>0.62 and a<=1.00 : A3 (severe activity) XQP-Dmnfn-7-Macroglo bulin 148 106 - 279 mg/dL [facility] FIB-Haptoglobin 123 43 - 212 mg/dL [facility] FIB-Apolipoprotein A1 155 101 - 198 mg/dL [facility] FIB-Total Bilirubin 0.4 0.2 - 1.2 mg/dL [facility] FIB-GGT 32 3 - 65 U/L [facility] FIB-ALT 32(A) 6 - 29 U/L [facility] Reference ID [id number] [facility] Footnote SEE NOTE [facility] Comment: The reliability of results is [...] and C.The performance characteristics have been determined by[facility]. Ithas not been cleared or approved by the U.S. Food and DrugAdministration. Performance characteristics refer to theanalytical performance of the test.[employer], the associated logo, [employer] and all associated [facility] gómez are theregistered trademarks of [employer] [facility]. All third partymarks - (R) and (TM) - are the property of their respectiveowners. (C) [id number] [facility] [employer]. Allrights reserved.THIS TEST WAS PERFORMED AT:[employer] [id number] [place] [address]DUEQGANGELIKA HAWLEY MD,PHD,BA Blood Venous blood specimen / Unknown 01/01/2024 11:10 AM EDT 01/01/2024 1:19 PM EDT us Willow Diamond POWERHOUSE ELECTRICIAN LAB BLOOD ORDERABLES Final Res ult [facility] [address] [place] [phone] * (ABNORMAL) CBC auto differential (01/01/2024 11:10 AM EDT) White Blood Count 4.6(L) 4.8 - 10.8 X10*3/uL [facility] Red Blood Count 3.97(L) 4.20 - 5.50 X10*6/uL [facility] Hemoglobin 12.7 12.0 - 16.0 g/dl [facility] Hematocrit 37.7 37.0 - 47.0 % [facility] Mean Corpuscular Volume 95.0 80.0 - 98.0 fL [facility] Mean Corpuscular Hemoglobin 32.0 27.0 - 33.0 pg [facility] Mean Corpuscular HGB Conc 33.7 31.0 - 35.0 g/dl [facility] Red Cell Distribution Width 12.3 11.0 - 16.0 % [facility] Platelet Count 150(L) 160 - 400 X10*3/uL [facility] Mean Platelet Volume 11.9 9.4 - 12.3 fL [facility] Neutrophils Percent Auto 49.8 45 - 73 % [facility] Imm Gran Pct Auto 0.4 0.0 - 0.4 % [facility] Lymphocytes Percent Auto 35.9 20 - 40 % [facility] Monocytes Percent Auto 10.6 2 - 11 % [facility] Eosinophils Percent Auto 2.2 0 - 4 % [facility] Basophils Percent Auto 1.1 0 - 2 % [facility] NRBC Pct Auto 0.0 0.0 - 0.2 /100WBC [facility] Neutrophils Absolute Auto 2.3 2.0 - 8.3 x10*3/uL [facility] Imm Gran Abs Auto 0.02 0.00 - 0.03 X10*3/uL [facility] Lymphocytes Absolute Auto 1.7 1.2 - 4.9 X10*3/uL [facility] Monocytes Absolute Auto 0.5 0.1 - 1.2 X10*3/uL [facility] Eosinophils Absolute Auto 0.1 0.0 - 0.4 X10*3/uL [facility] Basophils Absolute Auto 0.1 0.0 - 0.2 X10*3/uL [facility] NRBC Abs Auto 0.000 0.0 - 0.012 X10*3/uL [facility] Blood Venous blood specimen / Unknown 01/01/2024 11:10 AM EDT 01/01/2024 1:23 PM EDT us Willow [facility] LAB BLOOD ORDERABLES Final Res ult [facility] [address] [place] [phone] documented in this encounter Visit Diagnoses Diagnosis Thrombocytopenia (CMS/HCC)- Primary Unspecified thrombocytopenia Elevated liver function tests Other abnormal blood chemistry documented in this encounter Additional Health Concerns Assessment Noted Time PHQ-9 Depression Total Score: 10 11/19/ 024 9:43 AM EDT documented as of this encounter Care Teams Structural Steel Ironworker Relationship Specialty Start Date End Date Willow Diamond FNP [address] [place] [phone] PCP - General Family Medicine 06/11/22 documented as of this encounter
[2025-01-10 11:13] LABS: MANUAL DIFF FLAG NO
[2025-01-10 11:32] LABS: Hematocrit 35.1 % (37.0-47.0); Hemoglobin 12.0 g/dl (12.0-16.0); Imm Gran Abs Auto 0.02 X10*3/uL (0.00-0.03); Imm Gran Pct Auto 0.4 % (0.0-0.4); Lymphocytes Absolute Auto 1.4 X10*3/uL (1.2-4.9); Mean Corpuscular HGB Conc 34.2 g/dl (31.0-35.0); Mean Corpuscular Hemoglobin 31.6 pg (27.0-33.0); Mean Corpuscular Volume 92.4 fL (80.0-98.0); NRBC Abs Auto 0.000 X10*3/uL (0.0-0.012); NRBC Pct Auto 0.0 /100WBC (0.0-0.2); Platelet Count 141 X10*3/uL (160-400); Red Blood Count 3.80 X10*6/uL (4.20-5.50); White Blood Count 4.9 X10*3/uL (4.8-10.8)
[2025-01-10 11:58] LABS: Alanine Aminotransferase 24 U/L (0-31); Albumin Level 4.1 g/dL (3.5-5.0); Alkaline Phosphatase 81 U/L (39-117); Anion Gap 9 (12-20); Aspartate Amino Transferase 33 U/L (5-31); Blood Urea Nitrogen 11 mg/dL (9-16); Calcium 9.2 mg/dL (8.4-10.2); Carbon Dioxide 27 mmol/L (22-29); Chloride 111 mmol/L (96-108); Cholesterol 102 mg/dL (<200); Estimated Glomerular Filt Rate > 60; HDL Cholesterol 42 mg/dL (>40); Potassium 4.1 mmol/L (3.3-5.1); Sodium 143 mmol/L (135-145); Total Protein 7.2 g/dL (6.5-8.0); Triglycerides 57 mg/dL (<150)
[2025-01-10 12:16] LABS: HIV Num 1 0.05 S/CO (0.00-0.99)
[2025-01-10 13:02] LABS: CT PCR Urine NOT DETECTED (Not Detect.); NG PCR Urine NOT DETECTED (Not Detect.)
[2025-01-11 20:08] LABS: HCV Log PCR <1.18 NOT DETECTED Log IU/mL (NOT DETECTED); HepC Viral Load <15 NOT DETECTED IU/mL (NOT DETECTED)
== END 2025-01-10 08:52 | disposition home or self-care (01) ==
LOC: HO.HHCL 08:51
PROVIDERS: PCP Registered Nurse; Visit Provider Registered Nurse
DX: Z00.00 Encounter for general adult medical examination without abnormal findings (principal); Z13.6 Encounter for screening for cardiovascular disorders; Z11.4 Encounter for screening for human immunodeficiency virus [HIV]; Z13.1 Encounter for screening for diabetes mellitus
CPT/HCPCS: 80053; 80061; 83036; 84443; 85025; 86592; 87389; 87491; 87522; 87591

== ENCOUNTER 2025-03-28 10:05 | Outpatient (REF) | payer OTHER, SELFPAY ==
--- OUTSIDE RECORDS SUMMARY | 2025-03-28 11:05 | XMS_ITS | Clinical Summary ---
Author Organization [facility] Address [address] [phone] Phone Care Team Providers Care Hatch Boss Name Role Phone Myah Partida MD Primary [...] VACCINES (50+ years) (2 of 2 - PCV20 or PCV21) 01/15/2022 01/15/2021 INFLUENZA VACCINE (#1) 2024 , [...] this topic Medical Devices Implanted Type Area Supervisor Unloading Device Identifier Shelf Expiration Date Model / Serial / Lot Screw Bone 3.5x14mm Cortex Self Tapping Fully Threaded Hex Head Ss - [id number] Implanted:Qty: 1 on 11/26/2021 by Edward Lopez MD at [facility] Left: Elbow SY[employer]ES 204.814 / / Screw Bone 2.7x18mm Cortical Self Tapping Fully Threaded Hex Head Ss Bx/1ea - [id number] Implanted:Qty: 1 on 11/26/2021 by Edward Lopez MD at [facility] Left: Elbow SY[employer]ES 202.818 / / Screw Bone 3.5x16mm Cortex Self Tapping Fully Threaded Hex Head Ss - [id number] Implanted:Qty: 2 on 11/26/2021 by Edward Lopez MD at [facility] Left: Elbow [employer] 204.816 / / Screw Bone 3.5x22mm Cortex Self Tapping Fully Threaded Hex Head Ss - [id number] Implanted:Qty: 1 on 11/26/2021 by Edward Lopez MD at [facility] Left: Elbow SYN[employer]ES 204.822 / / [place] Suture Size 2 0 Needlecp2 [id number] Arthroscopy Gii Quick Plus - [id number] Implanted:Qty: 1 on 11/26/2021 by Edward Lopez MD at [facility] Left: Elbow [employer] 09/03/2026 [id number] / / [id number] Screw Bone 40x2.7mm Ss Variable Angle Locking Self Tapping Full Thread T8 Stardrive Recess - [id number] Implanted:Qty: 1 on 11/26/2021 by Edward Lopez MD at [facility] Left: Elbow SYNTHES 0 / / Screw Bone 20x2.7mm Ss Variable Angle Locking Self Tapping Full Thread T8 [employer] Recess - [id number] Implanted:Qty: 1 on 11/26/2021 by dEward Lopez MD at [facility] Left: Elbow [employer]THES 0 / / Screw Bone 18x2.7mm Ss Variable Angle Locking Self Tapping Full Thread T8 [employer] Recess - [id number] Implanted:Qty: 1 on 11/26/2021 by Edward Lopez MD at [facility] Left: Elbow [employer]ES 8 / / Screw Bone 14x2.7mm Ss Variable Angle Locking Self Tapping Full Thread T8 [employer] Recess - [id number] Implanted:Qty: 1 on 11/26/2021 by Edward Lopez MD at [facility] Left: Elbow [employer]ES 4 / / Olecranon Plate 2.7 [id number] 4 Hole Lcp Ss Variable Angle Left - [id number] Implanted:Qty: 1 on 11/26/2021 by Edward Lopez MD at [facility] Left: Elbow SYNTHES 4 / / Explanted Type Area Supervisor Unloading Device Identifier Shelf Expiration Date Model / Serial / Lot Hardware Explanted:Qty: 1 on 11/26/2021 at [facility] Left: Elbow Description:9 screws and one plate were taken out. Insurance [facility] [employer] MEDICARE REPLACEMENT MEDICARE PART A & B [facility] MEDICARE REPLACEMENT MEDICARE PART A & B [facility] MEDICARE REPLACEMENT MEDICARE PART A & B [facility] MEDICARE REPLACEMENT MEDICARE PART A & B MEDICARE REPLACEMENT MEDICARE PART A & B MEDICARE REPLACEMENT MEDICARE PART A & B Member Subscriber Plan / Payer (Ef fective 2018-Present) Name:Samanta Farrell Member ID:[id number] Relation to Subscriber:Self Name:Samanta Farrell Subscriber ID:[id number] Payer ID:[id number] Group ID:Not on file Type:Medicare Address: [facility] [employer] [facility] [address] [place] [address] MEDICARE PART A & B MEDICARE REPLACEMENT MEDICARE PART A & B [facility] [employer] MEDICARE REPLACEMENT MEDICARE PART A & B Care Teams Hatch Boss Relationship Specialty Start Date End Date Myah Partida MD PCP - General Internal Medicine 10/23/21 Additional Source Comments The information contained in this document represents components of the legal health record. It is not the complete legal health record.[facility]
--- OUTSIDE RECORDS SUMMARY | 2025-03-28 11:05 | XMS_ITS | Clinical Summary ---
Author Organization [employer] Address [address] [facility] 7[address] [place] [address] Care Team Providers Care Rn Disease Management Name Role Phone Willow Diamond REGINA Primary Care Provider [phone] Allergies No known active allergies Medications cetirizine [...] DAILY 180 tablet 2 11/19/19 25 Active Active Problems Problem Noted Date Diagnosed [...] reports appt upcoming Healthcare maintenance 07/30/2022 Overview (01/10/2025): Routine Health Maintenance Optometry: [facility] (Last appt jan 2023). [facility] October 2023. Dental: [facility] Dental BMD: osteoporosis September 2022 Last PE: 11/20/23 Health Care Proxy: completed Mar 2024 Routine Cancer Screening Breast CA: BI-RADs 1 [...] -Continues on Ca+Vit D3. -Continues Alendronate every leon, no side effects -Encouraged lifestyle interventions such [...] PM EST): Cont cetirizine and flonase PRN Anxiety and depression 12/09/2011 Assessment & Plan (01/10/2025 6:37 PM EDT): Patient Health Questionnaire-9 Score: 11 (01/06/2025 10:11 AM) Denies SI/HI/thoughts of self harm - Discussed treatment options, and she would like to continue with non-pharm options. Continue with coping strategies. Encouraged to reach out if interested in further resources. Hypothyroidism 12/09/2011 Assessment & Plan (08/01/2024 2:08 [...] Encounters Date Type Department Care Team Description 02/17/2025 Telephone [facility] [address] [place] [address] Willow Diamond FNP Call Back Request 01/20/2025 Orders Only [facility] [address] [place] [address] Willow Diamond FNP Thrombocytopenia (CMS/HCC) (Primary Dx) 01/06/2025 10:15 AM EDT Office Visit [facility] [address] [place] [address] Willow Diamond FNP Urinary frequency (Primary Dx); Healthcare maintenance; Encounter for immunization; Encounter for vaccination; Dietary counseling; Exercise counseling; Anxiety and depression 01/06/2025 Results Follow-Up [facility] [address] [place] [address] Willow Diamond FNP POCT Urinalysis, Lipid Panel, Standard, Hemoglobin A1c, Additional followed-up results: 8 01/06/2025 Travel 01/05/2025 Telephone [facility] [address] [place] [address] Willow Diamond FNP Chart Prep 12/29/2024 Patient Outreach [facility] [address], [place] [phone] Willow Diamond FNP Pre-visit Planning (SDOH screening negative and Tobacco screening negative) from Last 3 Months Immunizations Immunization Administration [...] 05/09/2014 MMR 08/05/1999 Pfizer Covid-19 Vaccine 12+ 01/06/2025, 4,02/20/2023 Pfizer Covid-19 Vaccine 12+ Bivalent 07/29/2022 Pneumococcal [...] Answer Date Recorded Patient Health Questionnaire-9 Score 11 01/06/2025 Patient Health Questionnaire-9 Score 11 01/06/2025 Last PHQ-9: Questionnaire Data Not on [...] X-Ray: [facility] 02/21/2024 02/20/20 23, 07/04/2021, 02/18/2018 COVID-19 Vaccine ( season) 2025 01/06/2025, 03/25/2024, 02/20/2023, Additional history exists Depression Monitoring 07/07/2025 01/06/2025, 025 Alcohol/Substance Use Screening 08/01/2025 08/01/2024 Tobacco Screening 08/01/2025 08/01/2024 Mammogram 10/03/2025 10/03/2024, 09/05, 09/23/2022, Additional history exists SDOH Screening 12/29/2025 12/29/2024 Diabetes: Hemoglobin A1C 01/10/2026 025, 12/15/2023, 08/05/2022, Additional history exists Dental X-Ray: Full Mouth 02/20/2026 02/19/2023, 02/04 Colonoscopy 07/12/2026 07/13/2023 Colorectal Cancer Screening 07/12/2026 DTaP/Tdap/Td Vaccines (2 - Td or Tdap) 08/19/2026 08/19/2016, 03/23/2003 RSV Patients and Patients Aged 60 years or older (1 - 1-dose 75+ series) 2028 Zoster Vaccines Completed 08/22/2021, 03/0 10/2021, 09/26/2015 Pneumococcal Vaccine: 50+ Years Completed 01/31/2022, 01/15/2021 Hepatitis B Vaccines Completed 08/05/2024, 03/07/2024, 02/01/2024, Additional history exists Influenza Vaccine Completed 01/06/2025, , 02/06/2023, Additional history exists Hepatitis C Screening Completed 01/10/2025 , 01/01/2024, 08/05/2022 HIB Vaccines Aged Out No longer eligi [...] Procedure Name Priority Date/Time Associated Diagnosis Comments CHLAMYDIA/TRICHOMONAS/ NEISSERIA GONORRHOEAE, PCR, URINE Routine 01/10/2025 9:05 AM EDT Healthcare maintenance HIV 1/2 ANTIGEN/ANTIBODY, FOURTH GENERATION W/RFL Routine 01/10/2025 9:05 AM EDT Healthcare maintenance RPR (MONITOR) W/REFL TITER Routine 01/10/2025 9:05 AM EDT Healthcare maintenance HEPATITIS C VIRAL RNA, QUANTITATIVE, REAL-TIME PCR Routine 01/10/2025 9:05 AM EDT Healthcare maintenance CBC WITH AUTO DIFFERENTIAL Routine 01/10/2025 9:05 AM EDT Healthcare maintenance COMPREHENSIVE METABOLIC PANEL Routine 01/10/2025 9:05 AM EDT Healthcare maintenance TSH W/REFLEX TO FT4 Routine 01/10/2025 9 :05 AM EDT Healthcare maintenance HEMOGLOBIN A1C Routine 01/10/2025 9:05 AM EDT Healthcare maintenance LIPID PANEL, STANDARD Routine 01/10/2025 9:05 AM EDT Healthcare maintenance POCT URINALYSIS DIPSTICK Routine 01/06/2025 11:04 AM EDT Urinary frequency CULTURE, URINE, ROUTINE Routine 01/06/2025 12:00 AM EDT Urinary frequency BI MAMMOGRAM SCREENING TOMOSYNTHESIS BILATERAL Routine 10/03/2024 8:55 AM EDT HM COLONOSCOPY Routine 07/13/2023 Healthcare [...] Recently Relevant to Health Maintenance Results * Chlamydia/Trichomonas/Neisseria gonorrhoeae, PCR, Urine (01/10/2025 9:05 AM EDT) CT PCR, Urine NOT DETECTED Not Detect. [facility] Comment:A not detected test result does not exclude the possibilityof infection because test results can be affected byimproper specimen collection, concurrent antibiotic therapy,or the number of organisms in the specimen which may bebelow the sensitivity of the test. As with many diagnostictests, results from the Xpert CT/NG assay should beinterpreted in conjunction with other laboratory andclinical data available to the clinician.The Xpert CT/NG assay should not be used for the evaluationof suspected sexual abuse or for other medico-legalindications. Additional testing is recommended in anycircumstance when false positive or false negative resultscould lead to adverse medical, social or psychologicalconsequences. NG PCR, Urine NOT DETECTED Not Detect. [facility] Comment:A not detected test result does not exclude the possibilityof infection because test results can be affected byimproper specimen collection, concurrent antibiotic therapy,or the number of organisms in the specimen which may bebelow the sensitivity of the test. As with many diagnostictests, results from the Xpert CT/NG assay should beinterpreted in conjunction with other laboratory andclinical data available to the clinician.The Xpert CT/NG assay should not be used for the evaluationof suspected sexual abuse or for other medico-legalindications. Additional testing is recommended in anycircumstance when false positive or false negative resultscould lead to adverse medical, social or psychologicalconsequences. Urine (Urine, Random) 01/10/2025 9:05 AM EDT 01/10/2025 11:13 AM EDT Willow Diamond [facility] URINE ORDERABLES Final Res ult Performing Organization Address [facility]/ZIP Co de Phone Number [facility] [address] [place] [phone] * TSH with Reflex to Free T4 (01/10/2025 9:05 AM EDT) TSH reflex Free T4 0.83 0.32 - 4.0 uIU/mL [facility] Blood 01/10/2025 9:05 AM EDT 01/10/2025 11:15 AM EDT Willow Diamond [facility] BLOOD ORDERABLES Final Res ult [facility] [address] [place] [address] [phone] * Hepatitis C Viral RNA, Quantitative, Real-Time PCR (01/10/2025 9:05 AM EDT) [facility] Hepatitis C Viral Load <15 NOT DETECTED NOT DETECTED IU/mL [facility] HCV Log PCR <1.18 NOT DETECTED NOT DETECTED Log IU/mL [facility] Comment:For additional infor david, please refer tohttp://education.Toppr/faq/[email or web address](This link is being provided for informational/educational purposes only.)THIS TEST WAS PERFORMED AT:[facility] [place] [phone] MCGUIRE MD Blood 01/10/2025 9:05 AM EDT 01/10/2025 11:09 AM EDT Willow Diamond [employer] LAB BLOOD ORDERABLES Final Res ult [facility] [address] [place] [address] [phone] * (ABNORMAL) CBC auto differential (01/10/2025 9:05 AM EDT) [facility] White Blood Count 4.9 4.8 - 10.8 X10*3/uL [facility] Red Blood Count 3.80(L) 4.20 - 5.50 X10*6/uL [facility] Hemoglobin 12.0 12.0 - 16.0 g/dl [facility] Hematocrit 35.1(L) 37.0 - 47.0 % [facility] Mean Corpuscular Volume 92.4 80.0 - 98.0 fL [facility] Mean Corpuscular Hemoglobin 31.6 27.0 - 33.0 pg [facility] Mean Corpuscular HGB Conc 34.2 31.0 - 35.0 g/dl [facility] Red Cell Distribution Width 11.9 11.0 - 16.0 % [facility] Platelet Count 141(L) 160 - 400 X10*3/uL [facility] Mean Platelet Volume 12.1 9.4 - 12.3 fL [facility] Neutrophils Percent Auto 57.5 45 - 73 % [facility] Imm Gran Pct Auto 0.4 0.0 - 0.4 % [facility] Lymphocytes Percent Auto 28.6 20 - 40 % [facility] Monocytes Percent Auto 9.4 2 - 11 % [facility] Eosinophils Percent Auto 3.5 0 - 4 % [facility] Basophils Percent Auto 0.6 0 - 2 % [facility] NRBC Pct Auto 0.0 0.0 - 0.2 /100WBC [facility] Neutrophils Absolute Auto 2.8 2.0 - 8.3 x10*3/uL [facility] Imm Gran Abs Auto 0.02 0.00 - 0.03 X10*3/uL [facility] Lymphocytes Absolute Auto 1.4 1.2 - 4.9 X10*3/uL [facility] Monocytes Absolute Auto 0.5 0.1 - 1.2 X10*3/uL [facility] Eosinophils Absolute Auto 0.2 0.0 - 0.4 X10*3/uL [facility] Basophils Absolute Auto 0.0 0.0 - 0.2 X10*3/uL [facility] NRBC Abs Auto 0.000 0.0 - 0.012 X10*3/uL [facility] Blood Venous blood specimen / Unknown 01/10/2025 9:05 AM EDT 01/10/2025 11:09 AM EDT us Willow Diamond [employer] LAB BLOOD ORDERABLES Final Res ult [facility] [address] [place] [address] [phone] * RPR (Monitor) with Reflex to??Titer (01/10/2025 9:05 AM EDT) RPR (Monitor) w/Refl Titer NON-REACTI VE NON-REACT JANIS [facility] Comment:THIS TEST WAS PERFOR MED AT:[facility] [address] [phone] MCGUIRE MD Rapid Plasma Reagin Ab Titer TNP [facility] Blood Venous blood specimen / Unknown 01/10/2025 9:05 AM EDT 01/10/2025 11:15 AM EDT Willow Diamond [employer] LAB BLOOD ORDERABLES Final Res ult Performing Organization Address [facility]/State/ZIP Co de Phone Number [facility] [address] [place] [phone] * HIV-1/2 Antigen and Antibodies, Fourth Generation, with Reflexes (01/10/2025 9:05 AM EDT) HIV AB/AG Nonreactive Nonreactive [facility] Comment:HIV-1 p24 Ag and/or HIV-1/HIV-2 Ab not detected.A test result that is nonreactive does not exclude thepossibility of exposure to or infection with HIV-1 and/orHIV-2. Nonreactive results in this assay for individualswith prior exposure to HIV-1 and/or HIV-2 may be due toantigen and antibody levels that are below the limit ofdetection of this assay.The [employer] HIV Ag/Ab Combo assay result andsupplemental assay results should be interpreted inconjunction with the patient's clinical presentation,history and other laboratory results. If the results areinconsistent with clinical evidence, additional testing issuggested to confirm the result. Blood Venous blood specimen / Unknown 01/10/2025 9:05 AM EDT 01/10/2025 11:15 AM EDT Willow Diamond [facility] BLOOD ORDERABLES Final Res ult Performing Organization Address [facility]/State/ZIP Co de Phone Number [facility] [address] [place] [phone] * Hemoglobin A1c (01/10/2025 9:05 AM EDT) Hemoglobin A1c 5.7 <6.0 % [facility] Comment:Hemoglobin A1C Refer ence Range Adults: 4.8 - 6.0 % Non diabetic: < 6.0 % Goal: < 7.0 %Additional Action Suggested: > 8.0 %Note: Hemoglobin A1c results are invalid for patients with abnormal amounts of HbF. Blood transfusions may impact the HbA1c concentration in the patient sample. Estimated Average Glucose 117 mg/dL [facility] Comment:eAG = Estimated ave rage glucose which is %A1C expressed asaverage glucose, using the formula of the C5P-NfcanxbXptvzhg Glucose study (ADAG), Diabetes Care, Vol.31,#8,Nov. 2007 Blood Venous blood specimen / Unknown 01/10/2025 9:05 AM EDT 01/10/2025 11:09 AM EDT Willow Diamond [employer] LAB BLOOD ORDERABLES Final Res ult [facility] [address] [place] [phone] * Lipid Panel, Standard (01/10/2025 9:05 AM EDT) Triglycerides 57 <150 mg/dL [facility] Comment:Desirable Triglyceri de: less than 150 mg/dLBorderline High Triglyceride 150-199 mg/dLHigh Triglyceride: 200-499 mg/dLVery High Triglyceride: greater than or equal to 5OO mg/dL Cholesterol 102 <200 mg/dL [facility] Comment:Desirable Cholestero l: less than 200 mg/dLBorderline High Cholesterol: 200-239 mg/dLHigh Cholesterol: greater than 239 mg/dL LDL Cholesterol Calculated 49 <100 mg/dL [facility] Comment:Desirable LDL: less than 100 mg/dLNear Optimal/Above Optimal LDL: 110- 129 mg/dLBorderline High LDL: 130-159 mg/dLHigh LDL: 160-189 mg/dLVery High LDL: greater than or equal to 190 mg/dL HDL Cholesterol 42 >40 mg/dL [facility] Comment:Desirable HDL: great er than 40 mg/dL Note: This HDL assay may give artificially low results in patients with liver disease. Blood Venous blood specimen / Unknown 01/10/2025 9:05 AM EDT 01/10/2025 11:15 AM EDT us Willow Diamond [employer] LAB BLOOD ORDERABLES Final Res ult [facility] [address] [place] [phone] * (ABNORMAL) Comprehensive Metabolic Panel (01/10/2025 9:05 AM EDT) Sodium 143 135 - 145 mmol/L [facility] Potassium 4.1 3.3 - 5.1 mmol/L [facility] Chloride 111(H) 96 - 108 mmol/L [facility] Carbon Dioxide 27 22 - 29 mmol/L [facility] Anion Gap 9(L) 12 - 20 [facility] Urea Nitrogen (BUN) 11 9 - 16 mg/dL [facility] Creatinine, Serum 0.61 0.5 - 1.4 mg/dL [facility] Estimated Glomerular Filt Rate >60 [facility] Comment:Chronic Kidney Disea se: Estimated GFR < 60 mL/min/1.96e8Zhbrmf Kidney Disease: Estimated GFR < 15 mL/min/1.73m2 Glucose 115 60 - 115 mg/dL [facility] Calcium 9.2 8.4 - 10.2 mg/dL [facility] Bilirubin, Total 0.5 0.0 - 1.0 mg/dL [facility] Aspartate Amino Transferase 33(H) 5 - 31 U/L [facility] Alanine Aminotransferase 24 0 - 31 U/L [facility] Total Protein 7.2 6.5 - 8.0 g/dL [facility] Albumin Level 4.1 3.5 - 5.0 g/dL [facility] Alkaline Phosphatase 81 39 - 117 U/L [facility] Blood Venous blood specimen / Unknown 01/10/2025 9:05 AM EDT 01/10/2025 11:15 AM EDT Result [facility] Willow Diamond [facility] BLOOD ORDERABLES Final Res ult [facility] [address] [place] [phone] * (ABNORMAL) POCT Urinalysis (01/06/2025 11:04 AM [...] Media Lot # [id number] Lot# Expiration Date [id number] Urine 01/06/2025 11:0 4 AM EDT Result [facility] Willow Diamond [facility] POINT OF CARE TEST ENTER/EDIT ORDERABLES Final Result * Culture, Urine, Routine (01/06/2025 12:00 AM EDT) Urine Urine specimen obtained by clean catch procedure / Unknown 01/06/2025 01/06/2025 Comment:UACC Narrative [facility] - 01/08/2025 11:33 AM EDT Urine Culture Report Result Urine Culture 50,000 to 100,000 cfu/ml Urine Culture Mixed bacterial reno characteristic of Urine Culture urogenital contamination. Specimen Source: Urine clean catch Willow Diamond [facility] MICROBIOLOGY - GENERAL ORD ERABLES Final Result [facility] [address] [place] [address] [phone] * BI Mammogram Screening Tomosynthesis Bilateral (10/03/2024 8:55 AM EDT) Anatomical Region Laterality Modality Breast Bilateral Mammography 10/03/2024 8:55 AM EDT Narrative 10/16/2024 1:26 PM EDT [facility] [address] [place] [address] Mammography Report Signed Patient: Samanta Ruano MR#: [id number] : 1955 Acct:[id number] Age/Sex: 69 / F ADM Date: 10/03/24 Loc: HO.MAMMO Attending Dr: Willow Diamond SHANK CEMENTER HAND Ordering Physician: Willow Diamond SHANK CEMENTER HAND Results: 1Negat janis Date of Service: 10/03/24 Follow Up: 1 Year From Orig ina Mammogram Procedure(s): MM tomosynthesis screening BI Accession Number(s): [id number] cc: Willow Diamond [employer]ANK C[employer] HAND EXAMINATION: MM SCREENING DIGITAL BREAST TOMOSYNTHESIS, BILATERAL [...] 10/16/24 1324 DD/ 0855 TD/TT: 10/03/24 0920 Cut Press Operator: Procedure Note Donotuseinterpreter, Image - 10/16/2024 [facility] [address] [place] [address] Mammography Report Signed Patient: Carrie Ruano#: [id number] : 4Acct:[id number] Age/Sex: 69 / FADM Date: 10/03/24 Loc: HO.MAMMO Attending Dr: Willow Diamond SHANK CEMENTER HAND Ordering Physician: Willow DiamondPResults: 1Negat janis Date of Service: 10/03/24Follow Up: 1 Year From Orig inal Mammogram Procedure(s): MM tomosynthesis screening BI Accession Number(s): [id number] cc: Willow Diamond EXAMINATION: MM SCREENING DIGITAL [...] 10/16/24 1324 DD/ 0855 TD/TT: 10/03/24 0920 Cut Press Operator: Willow TAPIA IMG BI PROCEDURES Final Result * (ABNORMAL) Hm Colonoscopy (07/13/2023) Colonoscopy Abnormal(A ) Normal 07/13/2023 Narrative Willow Diamond FNP - 07/13/2023 [facility] - Dr. Hackett. Repeat 3 years. us Historical Provider HEALTH MAINTENANCE Final Result * Fecal immunochemical (05/28/2022) Fecal Immunoassay Test (External) Neg Stool Rectal contents / Unknown us Historical Provider MD LAB BODY FLUIDS AND STOOL S ORDERABLES Final Result from Last 3 Months or Most Recently Relevant to Health Maintenance Insurance [facility] SEN[facility] OPTIONS (O D-SNP) [facility] MEDICAID [place] [address] , [place] [address] , [place] [address] Advance Directives Documents on File Type Date Recorded Patient Proj Engineer Expl anation Advance Directives and Livin g Will 03/28/2024 10:55 AM HCP Care Teams Rn Disease Management Relationship Specialty Start Date End Date Willow Diamond FNP [address] [place] [address] PCP - General Family Medicine 06/11/22
--- OUTSIDE RECORDS SUMMARY | 2025-03-28 11:06 | XMS_ITS | Encounter Summary ---
Author Organization [employer] Address [address] [facility] [address] [place] [address] Care Team Providers Care Manager Harbor Name Role Phone Willow Diamond Primary Care Provider [phone] Encounter Details Date Type Department Care Team (Latest Contact Info) Description 07/04/2021 Abstract [facility] CONVERSIONS Dental, Provider, DDS Social History Tobacco [...] on filedocumented in this encounter Care Teams Manager Harbor Relationship Specialty Start Date End Date Willow Diamond FNP [address] [place] [phone] PCP - General Family Medicine 06/11/22 documented as of this encounter
--- OUTSIDE RECORDS SUMMARY | 2025-03-28 11:06 | XMS_ITS | Encounter Summary ---
Author Organization [employer] Address [address] [facility] [address] [place] [address] Care Team Providers Care Police Guard Name Role Phone Willow Diamond REGINA Primary Care Provider [phone] Encounter Details Date Type Department Care Team (Late st Contact Info) Description 02/20/2023 Abstract [facility] [address] [facility] [address] [place], [place] [phone] Ashley Nunes Social History Tobacco Use Types [...] documented as of this encounter Care Teams Police Guard Relationship Specialty Start Date End Date Willow Diamond FNP [address] [place] [phone] PCP - General Family Medicine 06/11/22 documented as of this encounter
--- OUTSIDE RECORDS SUMMARY | 2025-03-28 11:06 | XMS_ITS | Encounter Summary ---
Author Organization [facility] Address [address] [place] [address] Phone Care Team Providers Care Planting Material Remover Name Role Phone Myah Partdia MD Primary Care Provider Unava ilable Encounter Details Date Type Department Care Team (Late st Contact Info) Description 11/26/2021 Procedure Pass [facility] [address] [place] [phone] Social History Tobacco Use Types Packs/Day Years [...] on filedocumented in this encounter Care Teams Planting Material Remover Relationship Specialty Start Date End Date Myah Partida MD PCP - General Internal Medicine 10/23/21 documented as of this encounter Additional Source Comments The information contained in this document represents components of the legal health record. It is not the complete legal health record.[facility]
--- OUTSIDE RECORDS SUMMARY | 2025-03-28 11:06 | XMS_ITS | Encounter Summary ---
Author Organization [facility] Address [address] [place] [address] Phone Care Team Providers Care Country Director Name Role Phone Myah Partida MD Primary Care Provider Unava ilable Encounter Details Date Type Department Care Team (Late st Contact Info) Description 11/13/2021 Procedure Pass [facility] [place] [address] 3rd [place] [address] Social History Tobacco Use Types Packs/Day Years [...] on filedocumented in this encounter Care Teams Country Director Relationship Specialty Start Date End Date Myah Partida MD PCP - General Internal Medicine 10/23/21 documented as of this encounter Additional Source Comments The information contained in this document represents components of the legal health record. It is not the complete legal health record.[facility]
--- OUTSIDE RECORDS SUMMARY | 2025-03-28 11:06 | XMS_ITS | Encounter Summary ---
Author Organization [employer] Address [address] [place] [address] Care Team Providers Care Molecular Biologist Name Role Phone Willow Diamond AUTHORIZATION REP Primary Care Provider [phone] Encounter Details Date Type Department Care Team ([facility] st Contact Info) Description 12/15/2023 Orders Only [facility] [address] [place], [place] [phone] Willow Diamond FNP [address] [place], [place] [phone] Thrombocytopenia (CMS/HCC) (Primary Dx); Elevated liver function [...] EDT) Hepatitis B Surface Ag Negative Negative [facility] Blood Venous blood specimen / Unknown 01/01/2024 11:10 AM EDT 01/01/2024 1:19 PM EDT us Willow Diamond AUTHORIZATION REP LAB BLOOD ORDERABLES Final Res ult Performing Organization Address [facility] Co de Phone Number [facility] [address] [place] [phone] * Hepatitis B Surface Antibody, Qualitative (01/01/2024 11:10 AM EDT) ~Hepatitis B Surface Antibody NONREACTIVE Nonreactive [facility] Comment:Nonreactive: < 8.00 mIU/mL Blood Venous blood specimen / Unknown 01/01/2024 11:10 AM EDT 01/01/2024 1:19 PM EDT Willow Diamond AUTHORIZATION REP LAB BLOOD ORDERABLES Final Res ult Performing Organization Address [facility] de Phone Number [facility] [address] [place] [phone] * Hepatitis B Core Antibody, Total (01/01/2024 11:10 AM EDT) Hepatitis B Core Antibody Nonreactive Nonreactive [facility] Blood Venous blood specimen / Unknown 01/01/2024 11:10 AM EDT 01/01/2024 1:19 PM EDT Willow Diamond AUTHORIZATION REP LAB BLOOD ORDERABLES Final Res ult Performing Organization Address [facility] de Phone Number [facility] [address] [place] [phone] * Hepatitis C Antibody with Reflex to HCV, RNA, Quantitative, Real-Time PCR (01/01/2024 11:10 AM EDT) Hepatitis C Antibody Nonreactive Nonreactive [facility] Comment:Antibodies to HCV no t detected; does not exclude early acuteHCV infection. Blood Venous blood specimen / Unknown 01/01/2024 11:10 AM EDT 01/01/2024 1:19 PM EDT Willow Diamond AUTHORIZATION REP LAB BLOOD ORDERABLES Final Res ult Performing Organization Address [facility]/ZIP Co de Phone Number [facility] [address] [place] [phone] * (ABNORMAL) Hepatic Function Panel (01/01/2024 11:10 AM EDT) Pathologist [facility] Bilirubin, Total 0.6 0.0 - 1.0 mg/dL [facility] Bilirubin, Direct 0.2 0.0 - 0.5 mg/dL [facility] Aspartate Amino Transferase 30 5 - 31 U/L [facility] Alanine Aminotransferase 38(H) 0 - 31 U/L [facility] Total Protein 7.1 6.5 - 8.0 g/dL [facility] Albumin Level 4.0 3.5 - 5.0 g/dL [facility] Alkaline Phosphatase 76 39 - 117 U/L [facility] Blood Venous blood specimen / Unknown 01/01/2024 11:10 AM EDT 01/01/2024 1:23 PM EDT us Willow Diamond AUTHORIZATION REP LAB BLOOD ORDERABLES Final Res ult Performing Organization Address [facility] Co de Phone Number [facility] [address] [place] [phone] * (ABNORMAL) Liver Fibrosis (HCV), FibroTest-ActiTest Panel (01/01/2024 11:10 AM EDT) Liver Fibrosis Score 0.14 [facility] Liver Fibrosis Stage F0 [facility] Liver Fibrosis Interpretation SEE NOTE [facility] Comment:no fibrosisFibro Lisa t Score [...] (severe fibrosis) Nec Inflam Act Score 0.13 [facility] Nec Inflam Act Grade A0 [facility] Nec Inflam Act Interpretation SEE NOTE [facility] Comment:no activityActiTest Score (a) Metavir Score a>=0 and a<=0.17 : A0 (no activity)a>0.17 and a<=0.29 : A0-A1 (no activity)a>0.29 and a<=0.36 : A1 (minimal activity)a>0.36 and a<=0.52 : A1-A2 (minimal activity)a>0.52 and a<=0.60 : A2 (significant activity)a>0.60 and a<=0.62 : A2-A3 (significant activity)a>0.62 and a<=1.00 : A3 (severe activity) MIF-Popkc-8-Macroglo bulin 148 106 - 279 mg/dL [facility] FIB-Haptoglobin 123 43 - 212 mg/dL [facility] FIB-Apolipoprotein A1 155 101 - 198 mg/dL [facility] FIB-Total Bilirubin 0.4 0.2 - 1.2 mg/dL [facility] FIB-GGT 32 3 - 65 U/L [facility] FIB-ALT 32(A) 6 - 29 U/L [facility] Reference ID [id number] [facility] Footnote SEE NOTE [facility] Comment: The reliability of results [...] and C.The performance characteristics have been determined by[employer] [facility]. Ithas not been cleared or approved by the U.S. Food and DrugAdministration. Performance characteristics refer to theanalytical performance of the test.[employer], the associated logo, [employer] and all associated [employer] are theregistered trademarks of [employer]. All third partymarks - (R) and (TM) - are the property of their respectiveowners. (C) [id number] [employer]. Allrights reserved.THIS TEST WAS PERFORMED AT:[employer] [id number] [place] [id number] HAWLEY MD,PHD,BA Blood Venous blood specimen / Unknown 01/01/2024 11:10 AM EDT 01/01/2024 1:19 PM EDT us Willow Diamond AUTHORIZATION REP LAB BLOOD ORDERABLES Final Res ult [facility] [address] [place] [phone] * (ABNORMAL) CBC auto differential (01/01/2024 11:10 AM EDT) White Blood Count 4.6(L) 4.8 - 10.8 X10*3/uL [facility] Red Blood Count 3.97(L) 4.20 - 5.50 X10*6/uL [facility] Hemoglobin 12.7 12.0 - 16.0 g/dl [facility] Hematocrit 37.7 37.0 - 47.0 % [facility] Mean Corpuscular Volume 95.0 80.0 - 98.0 fL [facility] Mean Corpuscular Hemoglobin 32.0 27.0 - 33.0 pg [facility] Mean Corpuscular HGB Conc 33.7 31.0 - 35.0 g/dl [facility] Red Cell Distribution Width 12.3 11.0 - 16.0 % [facility] Platelet Count 150(L) 160 - 400 X10*3/uL [facility] Mean Platelet Volume 11.9 9.4 - 12.3 fL [facility] Neutrophils Percent Auto 49.8 45 - 73 % [facility] Imm Gran Pct Auto 0.4 0.0 - 0.4 % [facility] Lymphocytes Percent Auto 35.9 20 - 40 % [facility] Monocytes Percent Auto 10.6 2 - 11 % [facility] Eosinophils Percent Auto 2.2 0 - 4 % [facility] Basophils Percent Auto 1.1 0 - 2 % [facility] NRBC Pct Auto 0.0 0.0 - 0.2 /100WBC [facility] Neutrophils Absolute Auto 2.3 2.0 - 8.3 x10*3/uL [facility] Imm Gran Abs Auto 0.02 0.00 - 0.03 X10*3/uL [facility] Lymphocytes Absolute Auto 1.7 1.2 - 4.9 X10*3/uL [facility] Monocytes Absolute Auto 0.5 0.1 - 1.2 X10*3/uL [facility] Eosinophils Absolute Auto 0.1 0.0 - 0.4 X10*3/uL [facility] Basophils Absolute Auto 0.1 0.0 - 0.2 X10*3/uL [facility] NRBC Abs Auto 0.000 0.0 - 0.012 X10*3/uL [facility] Blood Venous blood specimen / Unknown 01/01/2024 11:10 AM EDT 01/01/2024 1:23 PM EDT us Willow TAPIA LAB BLOOD ORDERABLES Final Res ult [facility] [address] [place] [phone] documented in this encounter Visit Diagnoses Diagnosis Thrombocytopenia (CMS/HCC)- Primary Unspecified thrombocytopenia Elevated liver function tests Other abnormal blood chemistry documented in this encounter Additional Health Concerns Assessment Noted Time PHQ-9 Depression Total Score: 10 11/19/ 024 9:43 AM EDT documented as of this encounter Care Teams Molecular Biologist Relationship Specialty Start Date End Date Willow Diamond FNP [address] [place] [phone] PCP - General Family Medicine 06/11/22 documented as of this encounter
== END 2025-03-28 10:06 | disposition home or self-care (01) ==
LOC: HO.US 10:05
PROVIDERS: PCP Registered Nurse; Visit Provider Registered Nurse
DX: D69.6 Thrombocytopenia, unspecified (principal)
CPT/HCPCS: 76705; 76981

== ENCOUNTER → 2025-03-28 10:07 | Outpatient (BNV) | payer OTHER, SELFPAY | PROVIDERS: PCP Registered Nurse; Visit Provider Radiology Diagnostic Ultrasound | DX: N28.1 Cyst of kidney, acquired (principal); K76.89 Other specified diseases of liver | CPT/HCPCS: 76705 ==